=== PATIENT | female | born 1965 | race Caucasian/White ===

== ENCOUNTER → 2019-05-23 | Outpatient (CLI) | payer BC, MEDICAID, SELFPAY ==
--- NOTE | 2019-05-23 09:43 | STRESSREP_ITS ---
Stress Test Report Date: Procedure: Pharmacologic stress nuclear imaging study Indications: 05-23-19 Consent: Per the patient Procedure: The patient underwent pharmacologic (Regadenoson) evaluation with a peak heart rate of 105 beats per minute (63 %predicted maximal heart rate) and a peak blood pressure of 164/92 mmHg. The baseline ECG demonstrated normal sinus rhythm. The peak pharmacologic ECG demonstrated no obvious ECG changes. There were no cardiac dysrhythmias pretest, during pharmacologic infusion, or recovery. There was no complaint of chest discomfort during pharmacologic infusion or recovery. The examination was discontinued secondary to completion of protocol. Impression: 1. Pharmacologic (Regadenoson) evaluation 2. Peak pharmacologic ECG with no obvious ECG changes. 3. There were no cardiac dysrhythmias pretest, during pharmacologic infusion, or recovery. 4. Nuclear images pending Myocardial perfusion imaging study: Technique: The patient was injected with 11.8 millicuries of technetium 99m Cardiolite and subsequently rest SPECT Cardiolite nuclear imaging was obtained in the horizontal long, vertical long, and short axis views. The patient underwent pharmacologic (Regadenoson) evaluation with a peak heart rate of 105 beats per minute (63 % percent predicted maximal heart rate) and a peak blood pressure of 164/92 mmHg. The patient was injected with 33 millicuries of technetium 99m Cardiolite and subsequently stress SPECT Cardiolite nuclear imaging was obtained in the horizontal long, vertical long, and short axis views. A gated Cardiolite study at peak stress was obtained. Interpretation: Rest and stress SPECT Cardiolite nuclear imaging status post realignment, normalization, and attenuation correction demonstrate areas of extra cardiac/gastrointestinal tracer uptake near the inferior segments which appears to be more prominent at rest as opposed to stress. At rest there appears to be relative uniform tracer uptake. Status post stress there appears to be an area of diminished tracer uptake in portions of the mid inferior/inferolateral segments. There is end systolic thickening and brightening. The gated Cardiolite study demonstrates myocardial thickening and inward wall motion. The reported LVEF is 75 %. Impression: 1. Stress SPECT currently nuclear imaging demonstrate myocardial perfusion changes concerning for an area of stress-induced myocardial ischemia in the mid inferior lateral segments. 2. The gated Cardiolite study reports an LVEF of 75 %. This note was generated with Variable software. It may contain incorrect words, spelling, and punctuation that were not noted in checking the note before signing.
== END | disposition home or self-care (01) ==
LOC: CVS 07:05
PROVIDERS: Family Provider Internal Medicine; PCP Internal Medicine; Referring Provider Internal Medicine; Visit Provider Internal Medicine
DX: Z13.6 Encounter for screening for cardiovascular disorders (principal)
CPT/HCPCS: 78452; 93017; A9500; A4216; J2785

== ENCOUNTER 2019-08-19 14:58 | Emergency (ER) | payer OTHER, BC, SELFPAY ==
[2019-08-19 15:02] VITALS: BP 166/108; PULSE 80; RESP 16; TEMP 36.2; O2SAT 95; BMI 28.5
--- NOTE | 2019-08-19 15:33 | ED.DCSUM_ITS ---
- ER Visit Summary Date of Service: 08/19/19 Chief Complaint: [Injury to right wrist] History of Present Illness: The patient is a 54 F [resents to the emergency department with injury to her right wrist while at work earlier today. 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 Patient subsequently noticed progressive swelling and discoloration to the wrist so she was instructed to be evaluated for the injury to her wrist. Patient initially went to urgent care and she was referred to the emergency department. 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 Told me she has history of coronary artery disease and had a heart attack in 2016 as well as a heart catheterization but no intervention. No recent travel or surgery. Patient is right-hand dominant. She states that she is really here just for the wrist injury. Patient also states that she has had prior wrist fracture to the right wrist back in 1992.] Physical Examination: [HEENT-PERRLA, EOMI. Cranial nerves II through XII grossly intact. TMs clear. Mucous membranes moist. No adenopathy. Cardiovascular-regular rate and rhythm without murmur or ectopy Lungs-clear to auscultation, chest wall stable without crepitus or subcu emphysema Abdomen-normoactive bowel sounds, soft, nontender, no rebound or rigidity, no peritoneal signs. Extremities-intact ?4, normal range of motion, normal pulses. Right wrist- patient does have some soft tissue swelling over the dorsum of the wrist with some ecchymosis and discoloration over the dorsum of the wrist and dorsum of the hand. Patient has pain with range of motion flexion extension. She is neurovascular intact distally.] Test Results: [X-rays of the right wrist showed a old fracture of the distal radius and ulnar styloid but no new fractures. EKG obtained by nursing staff on patient's arrival shows sinus rhythm with a ventricular rate of 67 bpm with no acute ST segment changes. Emergency Department Course and Treatment: [She was given a wrist splint and work restrictions] Treatment Plan: [Splint and wrist restrictions. Patient to follow-up with corporate care in 3 to 5 days for wound check.] Disposition: [Discharged home in stable condition.] Impression: [Contusion right wrist] This note was generated with [employer] dictation software. It may contain incorrect words, spelling, and punctuation that were not noted in review of the chart prior to signing ED Disposition - Plan for ED Patient: Referrals: Kassidy Connors MD [Primary Care Provider] -
--- NOTE | 2019-08-19 15:39 | RAD_ITS ---
STUDY: X-RAY - RIGHT WRIST REASON FOR EXAM: Female, 54 years old. Pain and deformity following injury. TECHNIQUE: 3 view(s) of the wrist were obtained. COMPARISON: Comparison is made with prior examination dated August 20, 2012. FINDINGS: There is evidence of a healed fracture of the distal radial metaphysis with deformity. Also evidence of an old avulsion fracture of the ulnar styloid. Normal radiocarpal articulation. Dorsal subluxation of the distal Normal carpal bones. Normal carpal articulations. Normal carpometacarpal articulation of the thumb. Normal second through fifth carpometacarpal articulations. Normal visualized metacarpal bones. Diffuse soft tissue swelling. RAD/Wrist min 3 Views IMPRESSION: Healed fracture of the distal radial metaphysis and avulsion fracture of the ulnar styloid. Dorsal subluxation of the distal ulna. Electronically Signed: Tim Arora, at 15:59 EDT , Service support ,
[2019-08-19 16:04] VITALS: RESP 16
--- NOTE | 2019-08-19 16:10 | DCINST.ED_ITS ---
ED Disposition - Plan for ED Patient: Instructions: CONTUSION, Hand, CONTUSION, Upper Extremity Prescriptions: Hydrocodone Bitart/Apap 5-325 [[place] 5MG-325MG] 1 tab PO Q4H PRN PRN 2 Days #7 tab PRN Reason: Pain Prescription Printed Referrals: Kassidy Connors MD [Primary Care Provider[facility] [GROUP OF PHYSICIANS] - 3-5 Days
--- NOTE | 2019-08-19 16:10 | ED.DEP ---
ED Disposition - Plan for ED Patient: Instructions: CONTUSION, Hand, CONTUSION, Upper Extremity Prescriptions: Hydrocodone Bitart/Apap 5-325 [[place] 5MG-325MG] 1 tab PO Q4H PRN PRN 2 Days #7 tab PRN Reason: Pain Prescription Printed Referrals: Kassidy Connors MD [Primary Care Provider[facility] [GROUP OF PHYSICIANS] - 3-5 Days
== END 2019-08-19 17:18 | disposition home or self-care (01) ==
LOC: ED 15:42
PROVIDERS: Emergency Provider Emergency Medicine; Family Provider Internal Medicine; PCP Internal Medicine
DX: S60.211A Contusion of right wrist, 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 (principal); S60.221A Contusion of right hand, 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; R07.89 Other chest pain; W22.01XA Walked into wall, initial encounter; Y93.9 Activity, unspecified; Y92.9 Unspecified place or not applicable; I25.10 Atherosclerotic heart disease of native coronary artery without angina pectoris; I25.2 Old myocardial infarction; I10 Essential (primary) hypertension; Z79.82 Long term (current) use of aspirin; Z79.899 Other long term (current) drug therapy
CPT/HCPCS: 73110; 93005; 99283

== ENCOUNTER → 2019-08-20 12:06 | Outpatient (CLI) | payer BC, SELFPAY ==
[2019-08-20 08:25] VITALS: BMI 28.5
--- NOTE | 2019-08-20 12:11 | RAD_ITS ---
STUDY: X-RAY CHEST REASON FOR EXAM: Female, 54 years old. Shortness of breath TECHNIQUE: Frontal view of the chest COMPARISON: X-ray chest November 16, 2017 FINDINGS: The lungs are clear. There are no pleural effusions. There is no pneumothorax. The heart is normal in size. The visualized osseous structures are within normal limits. RAD/Chest PA and Lateral IMPRESSION: No acute thoracic pathology. Electronically Signed: Francis West, at 17:05 EDT Tel , Service support ,
[2019-08-20 14:08] LABS: Absolute Lymphocyte Count 1.85 X10^3/uL (0.83-4.51); Absolute Neutrophil Count 3.2 X10^3/uL (2.0-7.7); Basophil# 0.04 X10^3/uL; Basophil% 0.7 % (0-1); Eosinophil# 0.14 X10^3/uL; Eosinophils% 2.5 % (0-5); Hematocrit 43.3 % (37-47); Hemoglobin 13.6 g/dL (12.0-15.0); Lymphocyte # 1.85 X10^3/ul (4.0); Lymphocyte % 32.6 % (19-41); Mean Corp Hgb Conc 31.4 g/dL (32-36); Mean Corpuscular Volume 92.3 fL (81-99); Mean Platelet Vol. 10.4 fl (6.2-12.0); Monocyte# 0.47 X10^3/uL; Monocyte% 8.3 % (0-10); NRBC Flagged by Analyzer 0 % (0-5); Neutrophil # 3.16 X10^3/uL (2.7-7.7); Neutrophil % 55.5 % (47-70); Platelet Count 298 K/mm3 (150-450); RBC Distribution Width CV 13.2 % (11.6-14.6); RBC Distribution Width SD 44.9 fl (35.1-43.9); Red Blood Count 4.69 M/mm3 (4.2-5.4); White Blood Count 5.7 K/mm3 (4.4-11.0)
[2019-08-20 14:46] LABS: Anion Gap 4 (5-15); BUN 11 mg/dL (7-18); Calcium,Total 8.8 mg/dL (8.5-10.1); Chloride 106 mmol/L (98-107); Creatinine, Serum 0.74 mg/dL (0.55-1.02); EST Glomerular Filtration Rate 87 mL/min (>60); Est Glom Filt Rate - Afr Amer 106 mL/min (>60); Glucose 89 mg/dL (74-106); Potassium 3.8 mmol/L (3.5-5.1); Sodium Level 140 mmol/L (136-145)
== END ==
LOC: RAD 12:09
PROVIDERS: Family Provider Internal Medicine; PCP Internal Medicine; Referring Provider Internal Medicine Cardiovascular Disease; Visit Provider Internal Medicine Cardiovascular Disease
DX: I25.119 Atherosclerotic heart disease of native coronary artery with unspecified angina pectoris (principal)
CPT/HCPCS: 36415; 71046; 80048; 85025

== ENCOUNTER 2019-08-22 07:07 | Day surgery (SDC) | payer BC, SELFPAY ==
[2019-08-20 08:25] VITALS: BMI 28.5
[2019-08-21 08:46] VITALS: BMI 28.5
--- NOTE | 2019-08-22 08:37 | CL.D_ITS ---
Patient Name: JOLIE JEROME Study Date: 08/22/2019 Performing: Zane Meyers MD Ht: 64.17 inches 163 cm : 1965 Wt: 165.35 lbs 75 kg Age: 54 Gender: female BSA: 1.81 PROCEDURE(S) PERFORMED [id number]/COR/LV CLINICAL PROFILE AND INDICATIONS Indications: Suspected CAD Heart Failure: None Stress/Imaging Date: 04/17/2019Stress Test with SPECT MPI: Positive Low Risk CAD Presentations: Symptom unlikely to be ischemic. CONCLUSIONS Normal coronary arteries RECOMMENDATIONS Medical therapy DESCRIPTION OF PROCEDURE The patient arrived to the procedure lab. The risks and benefits of the procedure as well as a full d escription of our services here and current unavailability of surgical backup were fully explained to the patient and/or their significant other prior to the catheterization. The Timeout was completed, verifying the correct patient and procedure. The patient's procedural site was prepped and draped in the usual fashion. Local anesthetic was given subcutaneously to right radial region with Lidocaine 2% . Using a modified Seldinger technique, arterial access was obtained via the right radial artery, a 6 Fr sheath was inserted. Right Coronary Artery selective angiography was then performed in multiple v iews using a 5 Fr. 4.0 [place] catheter. Left Coronary Artery selective angiography was performed in mu ltiple views using a 5 Fr. 4.0 [place] catheter. Left Ventriculography was performed in [place] projection using a 5 Fr. [place] catheter. LV to AO pullback pressures were then recorded.The arterial sheath was pulled and a TR Band was applied for hemostasis w/ 10ml air CORONARY ANGIOGRAPHY DOMINANCE: Right Dominant LEFT HEART ASSESSMENT Left Ventricular Ejection Fraction: by LV Gram 60 % Inferior Mid Akinesis Normal Left Ventricular systolic function Normal Left Ventricular systolic function LEFT MAIN: Angiographically normal LEFT ANTERIOR DESCENDING ARTERY: Angiographically normal CIRCUMFLEX ARTERY: Angiographically normal RIGHT CORONARY ARTERY: Angiographically normal COMPLICATIONS No Complications PROCEDURE MEDICATIONS Versed 1 mg IV Fentanyl 50 mcg IV Versed 1 mg IV Oxygen: 2 L/min via nasal cannula SUMMARY OF HEMODYNAMIC DATA Time AIR REST ECG 07:55:25 AO 133/79 (102) SA 08:15:52 LV 142/3, 8 08:22:16 LV 134/1, 10 08:22:22 LV 129/-2, 19 08:23:11 LVp 122/-6, 7 08:23:16 AO 146/76 (105) 08:23:21 Signed By Zane Meyers MD On 08/22/2019 08:36:32 Zane Meyers MD
== END 2019-08-22 10:30 | disposition home or self-care (01) ==
LOC: CLSP 07:07
PROVIDERS: Family Provider Internal Medicine; PCP Internal Medicine; Referring Provider Internal Medicine Cardiovascular Disease; Visit Provider Internal Medicine Cardiovascular Disease
DX: I25.119 Atherosclerotic heart disease of native coronary artery with unspecified angina pectoris (principal); I11.0 Hypertensive heart disease with heart failure; I50.32 Chronic diastolic (congestive) heart failure; I25.2 Old myocardial infarction; I27.21 Secondary pulmonary arterial hypertension; J45.909 Unspecified asthma, uncomplicated; Z86.2 Personal history of diseases of the blood and blood-forming organs and certain disorders involving the immune mechanism; Z87.892 Personal history of anaphylaxis; Z79.82 Long term (current) use of aspirin; Z79.02 Long term (current) use of antithrombotics/antiplatelets; Z79.899 Other long term (current) drug therapy
CPT/HCPCS: 93458; 99152; 99153; J7040; C1769; C1894; Q9967

== ENCOUNTER → 2020-03-20 09:38 | Outpatient (CLI) | payer BC, SELFPAY ==
[2020-03-16 11:17] VITALS: BMI 28.5
[2020-03-20 10:22] LABS: AST(SGOT) 17 U/L (15-37); Alanine Aminotransfer ALT/SGPT 25 U/L (13-56); Albumin, Serum 3.5 g/dL (3.2-5.0); Alkaline Phosphatase 78 U/L (45-117); Anion Gap 5 (5-15); BUN 14 mg/dL (7-18); BUN/Creat Ratio 19.4 RATIO (10-20); Bilirubin, Direct 0.14 mg/dL (0.00-0.30); Calcium,Total 8.6 mg/dL (8.5-10.1); Chloride 109 mmol/L (98-107); Cholesterol 216 mg/dL (200); Creatinine, Serum 0.72 mg/dL (0.55-1.02); EST Glomerular Filtration Rate 89 mL/min (>60); Est Glom Filt Rate - Afr Amer 108 mL/min (>60); Globulin 3.4 g/dL (2.2-4.2); Glucose 93 mg/dL (74-106); High Density Lipoprotein 59 mg/dL; Potassium 4.1 mmol/L (3.5-5.1); Protein, Total 6.9 g/dL (6.4-8.2); Sodium Level 142 mmol/L (136-145); Triglycerides 254 mg/dL; Very Low Density Lipoprotein 51 mg/dL (5-40)
== END ==
PROVIDERS: PCP Internal Medicine; Referring Provider Physician Assistant Medical; Visit Provider Physician Assistant Medical
DX: I10 Essential (primary) hypertension (principal); I25.10 Atherosclerotic heart disease of native coronary artery without angina pectoris
CPT/HCPCS: 36415; 80048; 80061; 80076

== ENCOUNTER → 2020-08-07 | Outpatient (CLI) | payer BC, SELFPAY ==
[2020-03-16 11:17] VITALS: BMI 28.5
== END | disposition home or self-care (01) ==
LOC: LABSPEC 14:23
PROVIDERS: PCP Internal Medicine; Visit Provider Family Medicine
DX: Z11.59 Encounter for screening for other viral diseases (principal)
CPT/HCPCS: 87635; U0003

== ENCOUNTER → 2021-01-08 11:58 | Outpatient (CLI) | payer BC, SELFPAY ==
[2020-03-16 11:17] VITALS: BMI 28.5
[2021-01-08 12:43] LABS: Cholesterol 242 mg/dL (200); Glucose 102 mg/dL (74-106); High Density Lipoprotein 88 mg/dL; Triglycerides 56 mg/dL; Very Low Density Lipoprotein 11 mg/dL (5-40)
== END ==
PROVIDERS: Referring Provider Family Medicine; Visit Provider Family Medicine
DX: Z00.00 Encounter for general adult medical examination without abnormal findings (principal)
CPT/HCPCS: 36415; 80061; 82947

== ENCOUNTER 2022-02-18 12:30 | Emergency (ER) | payer BC, SELFPAY ==
[2022-02-18 12:32] VITALS: BP 193/93; PULSE 105; RESP 14; TEMP 36.8; O2SAT 96; BMI 29.0
--- NOTE | 2022-02-18 12:48 | EKG12_ITS ---
Test Reason : Blood Pressure : / mmHG Vent. Rate : 100 BPM Atrial Rate : 100 BPM P-R Int : 164 ms QRS Dur : 082 ms QT Int : 352 ms P-R-T Axes : 072 042 065 degrees QTc Int : 454 ms Normal sinus rhythm Normal ECG Confirmed by NIGHAT DE LA O, ZAKIA ([id number]), health editor TINY DEVINE ([id number]) on 02/21/2022 10:56:41 AM Referred By: SELIN Confirmed By:ZAKIA DISLA MD
--- NOTE | 2022-02-18 12:49 | CT_ITS ---
STUDY: CT ABDOMEN AND PELVIS WITHOUT CONTRAST REASON FOR EXAM: Female, 56 years old. Pain RADIATION DOSAGE (If Supplied By Facility): CTDIvol = ( 8.26 ) mGy, DLP = ( 390.23 ) mGycm TECHNIQUE: Transaxial images were obtained from the dome of the diaphragm to the symphysis pubis without oral contrast, and without intravenous contrast. Sagittal and coronal images were reconstructed. Individualized dose optimization techniques were used for this CT. COMPARISON: None. FINDINGS: The visualized lung bases are unremarkable. The visualized portions of the heart are within normal limits. Normal liver. Normal gallbladder and extrahepatic biliary system. Normal spleen. Normal pancreas. Normal bilateral adrenal glands. Normal right kidney. Normal left kidney. Normal visualized stomach. Normal small intestine. Normal colon. The appendix is visualized and appears normal. Normal abdominal aorta. Normal inferior vena cava. Normal retroperitoneum. Normal urinary bladder. Normal abdominal wall. Normal osseous structures. CT/Abdomen/Pelvis without Cont IMPRESSION: Normal unenhanced CT of the abdomen and pelvis. Electronically Signed: José Manuel Woodson MD at 14:16 EDT ,
--- NOTE | 2022-02-18 12:55 | EX.ED.DYSGE1 ---
HPI History of Present Illness Chief Complaint: Abd Pain Detail of Chief Complaint: Chest pain and abdominal pain x9 days Informant: patient Narrative Narrative: Patient presents to the emergency department stating that she is not been feeling well for the last 9 days. Patient states that on the 18th of the month she came down with what she thought was food poisoning with diarrhea as well as some nausea and vomiting. Patient since then has been having indigestion and pain in the abdomen as well as in the chest. Her diarrhea is improved. She complains of pain with eating. She has a hard time localizing the pain but thinks may be more upper abdomen. She denies urinary symptoms. She tells me she think she is had a fever intermittently up to 100.8. Patient is concerned that she may be having a heart attack or an aneurysm in her abdomen. Patient tells me she had a heart attack in 2016 and heart had a heart catheterization but no stent or any type of intervention was undertaken. Prior similar symptoms: No PFSH PFS Medical History (Updated 02/18/22 @ 15:[address] 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) Secondary pulmonary arterial hypertension Home Medications albuterol sulfate 1 puff INHALATION Q4H PRN PRN 04/25/17 [History Last Taken Unknown] epinephrine 0.3 mg IM X1 PRN 04/25/17 [History Last Taken Unknown] aspirin 325 mg tablet 325 mg PO DAILY 08/20/19 [History Last Taken 08/22/19] clopidogrel 75 mg tablet 75 mg PO DAILY #90 tab 09/05/21 [Rx Last Taken Unknown] lisinopril 20 mg tablet 20 mg PO DAILY #90 tab 09/05/21 [Rx Last Taken Unknown] metoprolol succinate 100 mg tablet,extended release 24 hr 100 mg PO DAILY #90 tab 09/05/21 [Rx Last Taken Unknown] lansoprazole [Prevacid] 30 mg PO DAILY #14 cap 02/18/22 [Rx Last Taken Unknown] ondansetron 4 mg PO Q8H PRN PRN #10 tab 02/18/22 [Rx Last Taken Unknown] Allergy/AdvReac Type Severity Reaction Status Date / Time ketorolac tromethamine Allergy Shortness Verified 02/18/22 12:32 [From Toradol] of breath Family History Father Heart disease AVR BAV Brother Hypertension Sister Hypertension Mother Diabetes Hypertension Other Cancer Myocardial infarction Surgical History History of hysterectomy History of left heart catheterization (08/22/19) Social History (Updated 03/16/20 @ 11:17 by Zuleyma DEXTER, PA) Smoking Status: Never smoker alcohol intake: current alcohol intake frequency: holidays/special occasions only ROS ROS ED Constitutional Constitutional ED: Reports systems reviewed and no addt'l complaints, except as documented; Denies body ache(s), change in weight or chills Eyes Eyes: Denies acute decrease in peripheral vision, change in vision, double vision or loss of vision ENT ENT ED: Reports none; Denies ear pain, lip swelling, loss taste/smell, neck pain, otalgia or sore throat Cardiovascular Cardiovascular: Reports none and chest pain; Denies abdominal pain, chest pain with activity, leg edema, lightheadedness, palpitations, rapid heart rate or syncope Respiratory/Chest Respiratory/Chest: Reports none; Denies change in mental status, dry cough, dyspnea, hemoptysis, shortness of breath at rest or shortness of breath with exertion Gastrointestinal Gastrointestinal: Reports none, abdominal pain, diarrhea, nausea and vomiting; Denies change in stool character, hematemesis, hematochezia, melena or rectal bleeding Genitourinary Genitourinary ED: Reports none; Denies abdominal discomfort, anuria, dysuria, genital pain or polyuria Musculoskeletal Musculoskeletal: Reports none; Denies arthralgias, back pain, difficulty walking, extremity pain, muscle weakness or myalgias Integumentary Reports none; Denies abscess or rash Neurologic Neurologic: Reports none; Denies abnormal gait, confusion, focal weakness, frequent falls, headache(s), loss of vision, numbness, paresthesias, radicular pain, vertigo or weakness Psychiatric Psychiatric: Reports systems reviewed and no addt'l complaints, except as documented and none; Denies behavioral changes, confusion, difficulty concentrating, hallucinations, suicidal ideation, tactile hallucinations or visual hallucinations Endocrine Endocrinology: Denies none, cold intolerance, excessive sweating, fatigue or heat intolerance Hematologic/Lymphatic Hematologic/Lymphatic: Reports none; Denies anemia, easy bleeding or easy bruising Allergic/Immunologic Allergic/Immunologic ED: Denies as per HPI, none, lip swelling, mouth swelling, throat swelling, tongue swelling or hives EXAM Physical Exam Const Vital Signs: 02/18/22 12:32 02/18/22 12:44 Temperature 98.3 F Temperature Source Temporal Pulse Rate 105 H Respiratory Rate 14 Respiratory Effort Normal Blood Pressure 193/93 H Blood Pressure Mean 126 Pulse Ox 96 Oxygen Delivery Method Room Air Positive well nourished and well developed General Appearance ED: well developed and NAD HEENT Reports TM's clear and moist mucous membranes normocephalic and atraumatic; Negative for trauma or tenderness Tympanic Membrane ED: Yes TM's clear Eyes PERRL and EOMs intact bilaterally General Eye ED: Negative for pale conjunctiva or scleral icterus Neck no lymphadenopathy, supple and no JVD General: Negative for tenderness Chest Wall inspection of chest normal and palpation of chest normal Chest: Negative for tenderness Resp normal respiratory effort and clear to auscultation bilaterally Effort and Inspection: Negative for respiratory distress or pain with movement Auscultation: Negative for rhonchi, wheezes or diminished lung sounds Cardio regular rate, regular rhythm, S1 normal heart sound, S2 normal heart sound and no murmurs Peripheral Pulses: pulses 2+ throughout GI normal to inspection, nondistended, normoactive bowel sounds, soft to palpation, non-distended and no masses GI Narrative: Patient with mild diffuse tenderness on exam but seems to localize more to the epigastric and right upper quadrant region. There are some mild guarding. There is no rebound, rigidity, or peritoneal signs. Exam was performed and she had brown stool and Hemoccult was sent. No masses in the rectal vault. Back/Spine no CVA tenderness and no thoracic nor lumbar tenderness Extremity normal to inspection General Extremety ED: Negative for edema General Extremity: Negative for edema Neuro oriented x3, CN's II-XII intact bilaterally, no sensory deficits noted and gait normal Sensorium / Orientation: awake, alert, oriented to person, oriented to place and oriented to time Motor Exam: strength 5/5 throughout and strength abnormal Psych mental status grossly normal Skin no rashes or lesions noted and no wounds MDM MDM MDM Narrative Medical decision making narrative: IV line established on arrival. Patient was given Zofran. Lab work-up was significant for anemia with a hemoglobin of 8.3. Her last hemoglobin was from 2019 and was normal at that time at 13. Etiology of her anemia is unclear and her stool only turned dark after she took Pepto-Bismol few days ago. CT scan of the abdomen pelvis was unremarkable. Kidney function as well as LFTs and lipase were normal. I suspect patient may have had a viral gastroenteritis. I will refer her to GI for follow-up as she will need repeat blood work as far as H&H and possible upper and lower scopes if her symptoms persist. Patient will be started on Prevacid and Zofran. Lab Data Attestation: I reviewed the patient's lab results. Labs: Laboratory Results - last 24 hr 02/18/22 02/18/22 02/18/22 13:20 13:20 13:20 WBC 10.5 RBC 2.85 L Hgb 8.3 L Hct 25.4 L MCV 89.1 MCH 29.1 MCHC 32.7 RDW Std Deviation 44.1 H RDW Coeff of Jo 14.2 Plt Count 306 MPV 10.5 Immature Gran % (Auto) 1.200 H Neut % (Auto) 71.3 H Lymph % (Auto) 17.2 L [place] % (Auto) 8.5 Eos % (Auto) 1.4 Baso % (Auto) 0.4 Absolute Neuts (auto) 7.4 Absolute Lymphs (auto) 1.80 Nucleated RBC % 0.4 Sodium 138 Potassium 3.5 Chloride 104 Carbon Dioxide 29.0 Anion Gap 5 BUN 13 Creatinine 0.69 Estim Creat Clear Calc 77.68 Est GFR (MDRD) Af Amer 112 Est GFR (MDRD) Non-Af 93 BUN/Creatinine Ratio 18.8 Glucose 115 H Lactic Acid 0.7 Calcium 8.1 L Total Bilirubin 0.60 AST 13 L ALT 23 Alkaline Phosphatase 70 Troponin I High Sens 6 Total Protein 6.9 Albumin 3.3 Globulin 3.6 Albumin/Globulin Ratio 0.9 Lipase 191 Urine Color Urine Clarity Urine pH Ur Specific [place] Urine Protein Urine Glucose (UA) Urine Ketones Urine Occult Blood Urine Nitrite Urine Bilirubin Urine Urobilinogen Ur Leukocyte Esterase Urine RBC Urine WBC Ur Squamous Epith Cells Urine Bacteria Urine Mucus 02/18/22 13:49 WBC RBC Hgb Hct MCV MCH MCHC RDW Std Deviation RDW Coeff of Jo Plt Count MPV Immature Gran % (Auto) Neut % (Auto) Lymph % (Auto) [place] % (Auto) Eos % (Auto) Baso % (Auto) Absolute Neuts (auto) Absolute Lymphs (auto) Nucleated RBC % Sodium Potassium Chloride Carbon Dioxide Anion Gap BUN Creatinine Estim Creat Clear Calc Est GFR (MDRD) Af Amer Est GFR (MDRD) Non-Af BUN/Creatinine Ratio Glucose Lactic Acid Calcium Total Bilirubin AST ALT Alkaline Phosphatase Troponin I High Sens Total Protein Albumin Globulin Albumin/Globulin Ratio Lipase Urine Color Yellow Urine Clarity Clear Urine pH 7.0 Ur Specific [place] 1.010 Urine Protein Negative Urine Glucose (UA) Normal Urine Ketones Negative Urine Occult Blood Negative Urine Nitrite Negative Urine Bilirubin Negative Urine Urobilinogen Normal Ur Leukocyte Esterase 100 H Urine RBC 0 SEEN Urine WBC 0 SEEN Ur Squamous Epith Cells 0 SEEN Urine Bacteria 0 SEEN Urine Mucus 0 SEEN Radiography Diagnostic Testing: Clinical Impression(s) from Imaging Studies Abdomen/Pelvis CT 02/18/22 12:49 IMPRESSION: Normal unenhanced CT of the abdomen and pelvis. Electronically Signed: José Manuel Woodson MD at 14:16 EDT , EKG Initial EKG: Attestation: I personally reviewed and interpreted this EKG as follows: Comments: Sinus rhythm with a ventricular rate of 100 bpm with no acute ST segment changes Discharge Plan Triage Chief Complaint: Abd Pain ED Provider: Haris Collazo Dx/Rx/DC Orders Clinical Impression: Abdominal pain, Viral gastroenteritis, Anemia Instructions: Anemia, ED Abdominal Pain Unkn Cause Fem, ED Gastroenteritis, Viral (Adult) Prescriptions: New ondansetron [ondansetron] 4 MG tablet 4 mg PO Q8H PRN PRN (Reason: Nausea) Qty: 10 RF: 0 lansoprazole [Prevacid] 30 mg capsule,delayed release(DR/EC) 30 mg PO DAILY Qty: 14 RF: 0 No Action aspirin 325 mg tablet 325 mg PO DAILY RF: 0 albuterol sulfate 1 INHALER inhaler 1 puff inhalation Q4H PRN PRN (Reason: Wheezing) RF: 0 epinephrine 0.3 MG syringe 0.3 mg IM X1 PRN (Reason: Anaphylaxis) RF: 0 clopidogrel 75 mg tablet 75 mg PO DAILY Qty: 90 RF: 3 lisinopril 20 mg tablet 20 mg PO DAILY Qty: 90 RF: 3 metoprolol succinate 100 mg tablet extended release 24 hr 100 mg PO DAILY Qty: 90 RF: 3 Primary Care Provider: Care Physician,No Primary Referrals: Radames Foss MD [STAFF PHYSICIAN] - 3-5 Days FriendRalf DO [STAFF PHYSICIAN] - 3-5 Days Care Physician,No Primary [Primary Care Provider] - Disposition Disposition: Home, Self Care
[2022-02-18] MEDS: 0.9% Normal Saline 1,000 ML 125 ML IV (12:56)
[2022-02-18] MEDS: Ondansetron 4 MG/2 ML Vial IV (12:56)
[2022-02-18 13:36] LABS: Absolute Neutrophil Count 7.4 X10^3/uL (2.0-7.7); Basophil# 0.04 X10^3/uL; Basophil% 0.4 % (0-1); Eosinophil# 0.15 X10^3/uL; Eosinophils% 1.4 % (0-5); Hematocrit 25.4 % (37-47); Hemoglobin 8.3 g/dL (12.0-15.0); Lymphocyte % 17.2 % (19-41); Mean Corp Hgb Conc 32.7 g/dL (32-36); Mean Corpuscular Hgb 29.1 pg (27.0-32.0); Mean Corpuscular Volume 89.1 fL (81-99); Mean Platelet Vol. 10.5 fl (6.2-12.0); Monocyte# 0.89 X10^3/uL; Monocyte% 8.5 % (0-10); NRBC Flagged by Analyzer 0.4 % (0-5); Neutrophil # 7.44 X10^3/uL (2.7-7.7); Neutrophil % 71.3 % (47-70); Platelet Count 306 K/mm3 (150-450); RBC Distribution Width CV 14.2 % (11.6-14.6); RBC Distribution Width SD 44.1 fl (35.1-43.9); Red Blood Count 2.85 M/mm3 (4.2-5.4); White Blood Count 10.5 K/mm3 (4.4-11.0)
[2022-02-18 13:53] LABS: Bacteria 0 SEEN /hpf (None Seen); Mucous, Urine 0 SEEN /hpf (<or=2+); Red Blood Cells-Urine 0 SEEN /hpf (0-5); Squamous Epithelial Cells - UA 0 SEEN /hpf (5-10); White Blood Cells 0 SEEN /hpf (0-5)
[2022-02-18 13:55] LABS: ALB/GLOB Ratio 0.9 RATIO (0.9-2.4); AST(SGOT) 13 U/L (15-37); Alanine Aminotransfer ALT/SGPT 23 U/L (13-56); Albumin, Serum 3.3 g/dL (3.2-5.0); Alkaline Phosphatase 70 U/L (45-117); Anion Gap 5 (5-15); BUN 13 mg/dL (7-18); BUN/Creat Ratio 18.8 RATIO (10-20); Calcium,Total 8.1 mg/dL (8.5-10.1); Chloride 104 mmol/L (98-107); Creatinine, Serum 0.69 mg/dL (0.55-1.02); EST Glomerular Filtration Rate 93 mL/min (>60); Est Glom Filt Rate - Afr Amer 112 mL/min (>60); Estimated Creatinine Clearance 77.68 ml/min; Globulin 3.6 g/dL (2.2-4.2); Glucose 115 mg/dL (74-106); Lipase 191 U/L (73-393); Potassium 3.5 mmol/L (3.5-5.1); Protein, Total 6.9 g/dL (6.4-8.2); Sodium Level 138 mmol/L (136-145); Troponin-I HS 6 pg/mL (3.0-54.0)
[2022-02-18 13:59] LABS: Color, Urine Yellow (Yellow); Glucose, Dipstick Normal (Normal); Ketone-Dipstick Negative (Negative); Leukocyte Esterase-Dipstick 100 /ul (Negative); Nitrite-Dipstick Negative (Negative); Occult Blood-Urine Negative /ul (Negative); Protein-Dipstick Negative (Negative); Urine Bilirubin Dipstick Negative (Negative); Urine Clarity Clear (Clear); Urine Urobilinogen Normal (Normal)
[2022-02-18 14:00] LABS: Lactic Acid 0.7 mmol/L (0.4-1.9)
[2022-02-18 15:18] VITALS: BP 147/88; BP 151/91; BP 155/88; PULSE 76; PULSE 78
[2022-02-18 15:27] VITALS: BP 148/78; PULSE 78; RESP 16; TEMP 36.9; O2SAT 98
== END 2022-02-18 15:53 | disposition home or self-care (01) ==
PROVIDERS: Emergency Provider Emergency Medicine; Visit Provider Emergency Medicine
DX: A08.4 Viral intestinal infection, unspecified (principal); I11.0 Hypertensive heart disease with heart failure; I50.32 Chronic diastolic (congestive) heart failure; I27.21 Secondary pulmonary arterial hypertension; I25.10 Atherosclerotic heart disease of native coronary artery without angina pectoris; D64.9 Anemia, unspecified; J45.909 Unspecified asthma, uncomplicated; I25.2 Old myocardial infarction; Z79.82 Long term (current) use of aspirin; Z79.899 Other long term (current) drug therapy; Z79.02 Long term (current) use of antithrombotics/antiplatelets
CPT/HCPCS: 74176; 80053; 81001; 82274; 83605; 83690; 84484; 85025; 93005; 96361; 96374; 99284; J7030; J2405

== ENCOUNTER 2022-03-03 13:14 | Emergency (ER) | payer BC, SELFPAY ==
[2022-03-03 13:15] VITALS: BP 208/106; PULSE 116; RESP 15; TEMP 37.4; O2SAT 98; BMI 27.4
[2022-03-03] MEDS: Ondansetron ODT 4 MG Tablet 8 MG PO (13:54)
--- NOTE | 2022-03-03 14:06 | CT_ITS ---
STUDY: CT BRAIN WITHOUT CONTRAST REASON FOR EXAM: Female, 56 years old. Scalp pain -- posterior scalp lesion, headache RADIATION DOSAGE (If Supplied By Facility): CTDIvol = ( 47.06 ) mGy, DLP = ( 943.26 ) mGycm TECHNIQUE: Transaxial CT imaging of the brain was performed without administration of intravenous contrast material. Individualized dose optimization techniques were used for this CT. COMPARISON: Comparison is made with prior study of 04/25/2017. FINDINGS: Soft tissue changes in the scalp overlying the posterior right parietal bone. No mass lesion is seen. Normal calvarium. Normal size ventricles and extra-axial spaces for the patient''s age. Normal white matter tracts of the cerebral hemispheres. Normal basal ganglia and thalami. Normal brainstem. Normal cerebellum. There is no intracranial hemorrhage. There are no findings of an acute ischemic infarction. Normal visualized paranasal sinuses. CT/Brain/Head without Contrast IMPRESSION: Soft tissue density in the scalp overlying the posterior right parietal bone. Electronically Signed: Tim Arora MD at 14:38 EDT ,
--- NOTE | 2022-03-03 14:32 | EDS_ITS ---
HPI History of Present Illness Chief Complaint: General Illness Informant: patient Narrative Narrative: Presents for evaluation of scalp bump posterior noted for the past 4 days that is new. States was not there previously. She followed up with PCP yesterday, Dr. Samuels, reports had a attempted needle drainage, there was no drainage, placed on Augmentin. Denies fever. States of pain in her head shooting up and inside. She states it feels like shingles pain in the past. States there is bumps on her neck. She denies any trouble swallowing or sore throat. Denies any previous similar symptoms in the past. History of SD with catheterization and no stenting in the past she is on aspirin and Plavix. Reports was here 2 weeks ago for abdominal pain with a negative work-up she is placed on lansoprazole and Zofran. She is currently nauseated stating she is out of Zofran. 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) Secondary pulmonary arterial hypertension Home Medications albuterol sulfate 1 puff INHALATION Q4H PRN PRN 04/25/17 [History Last Taken Unknown] epinephrine 0.3 mg IM X1 PRN 04/25/17 [History Last Taken Unknown] aspirin 325 mg tablet 325 mg PO DAILY 08/20/19 [History Last Taken 08/22/19] clopidogrel 75 mg tablet 75 mg PO DAILY #90 tab 09/05/21 [Rx Last Taken Unknown] lisinopril 20 mg tablet 20 mg PO DAILY #90 tab 09/05/21 [Rx Last Taken Unknown] metoprolol succinate 100 mg tablet,extended release 24 hr 100 mg PO DAILY #90 tab 09/05/21 [Rx Last Taken Unknown] lansoprazole [Prevacid] 30 mg PO DAILY #14 cap 02/18/22 [Rx Last Taken Unknown] ondansetron 4 mg PO Q8H PRN PRN #10 tab 02/18/22 [Rx Last Taken Unknown] gabapentin 100 mg PO TID #60 cap 03/03/22 [Rx Last Taken Unknown] hydrocodone-acetaminophen 1 tab PO Q6H PRN 3 Days #12 tab 03/03/22 [Rx Last Taken Unknown] ondansetron 4 mg PO Q6H PRN #20 tab 03/03/22 [Rx Last Taken Unknown] Allergy/AdvReac Type Severity Reaction Status Date / Time ketorolac tromethamine Allergy Shortness Verified 03/03/22 13:17 [From Toradol] of breath Family History Father Heart disease AVR BAV Brother Hypertension Sister Hypertension Mother Diabetes Hypertension Other Cancer Myocardial infarction Surgical History History of hysterectomy History of left heart catheterization (08/22/19) Social History Smoking Status: Never smoker alcohol intake: current alcohol intake frequency: holidays/special occasions only ROS ROS ED Constitutional Constitutional ED: Denies chills, fever(s) or sweats Eyes Eyes: Denies change in vision ENT ENT ED: Denies dysphagia or sore throat Cardiovascular Cardiovascular: Denies chest pain, leg edema, palpitations or racing heartbeat Respiratory/Chest Respiratory/Chest: Denies cough, dyspnea or dyspnea on exertion Gastrointestinal Gastrointestinal: Denies abdominal pain, diarrhea, nausea or vomiting Genitourinary Genitourinary ED: Denies dysuria, hematuria or urinary frequency Musculoskeletal Musculoskeletal: Denies back pain, extremity pain or neck pain Integumentary Reports other Details: scalp lesion. ; Denies rash or wounds Neurologic Neurologic: Reports headache(s); Denies paresthesias or weakness EXAM Physical Exam Const Vital Signs: 03/03/22 13:15 03/03/22 13:55 Temperature 99.3 F H Temperature Source Oral Pulse Rate 116 H Respiratory Rate 15 Respiratory Effort Normal Respiratory Pattern Normal Blood Pressure 208/106 H Blood Pressure Mean 140 Pulse Ox 98 Oxygen Delivery Method Room Air Positive well nourished and well developed General Appearance ED: well developed and NAD HEENT Reports moist mucous membranes normocephalic and atraumatic Eyes PERRL, EOMs intact bilaterally and conjunctivae normal General Eye ED: Yes normal appearance of both eyes Neck no lymphadenopathy and supple General: Negative for tenderness Chest Wall Chest: Negative for tenderness Resp normal respiratory effort and normal air movement Effort and Inspection: symmetric chest movement; Negative for respiratory distress Cardio regular rate, regular rhythm and no murmurs Peripheral Pulses: pulses 2+ throughout GI normal to inspection, nondistended, normoactive bowel sounds and non-tender Palpation: Negative for guarding or rebound tenderness present Back/Spine no CVA tenderness and no thoracic nor lumbar tenderness Extremity normal to inspection General Extremety ED: Negative for edema or tenderness General Extremity: Negative for edema Neuro oriented x3 and no sensory deficits noted Sensorium / Orientation: awake and alert Skin no wounds Skin Narrative: Scalp: 4 cm nodule posterior right side scalp raised, no fluctuance, there was a noted puncture wound with no active bleeding. No surrounding erythema no vesicles. MDM MDM MDM Narrative Medical decision making narrative: Patient concern with new lesion with headache. CT scan negative for intracranial process. Dense tissue noted per radiology. This was firm on examination she reports this is new from 4 days ago. Requested starting gabapentin for nerve pain, this is region of her occipital nerve, will treat for symptoms. Started in the ED. Short prescription was written. She will use Tylenol as needed. She given Zofran for nausea updated prescription given. She has a nonsurgical abdomen. She is following up with GI DrLamonte Friend as an outpatient she is on lansoprazole. Her hemoglobin is 8.3 from a couple weeks ago she denies any GI bleed issues. She will monitor for the symptoms and keep for follow-up. There is no indication for transfusions from criteria. She had elevated blood pressure on arrival had a headache with a negative scan no chest pains no vomiting or diarrhea. She takes her blood pressure medicines at night. Likely elevated with slight tachycardia due to pain symptoms. Additional [place] sent for pain control to her pharmacy. She will have this rechecked by her PCP. Outpatient follow-up with return precautions. All questions were answered. Radiography Diagnostic Testing: Clinical Impression(s) from Imaging Studies Brain CT 03/03/22 14:06 IMPRESSION: Soft tissue density in the scalp overlying the posterior right parietal bone. Electronically Signed: Tim Arora MD at 14:38 EDT , Discharge Plan Triage Chief Complaint: General Illness ED Provider: Alonso Hart Dx/Rx/DC Orders Clinical Impression: Scalp lesion, Headache, Anemia, Gastritis, Elevated blood pressure reading in office with diagnosis of hypertension Instructions: Anemia, ED Gastritis (Adult), Epidermoid Cyst Infect Antibiotics Prescriptions: New gabapentin 100 mg capsule 100 mg PO TID Qty: 60 RF: 0 ondansetron 4 mg tablet,disintegrating 4 mg PO Q6H PRN (Reason: nausea and vomiting) Qty: 20 RF: 0 hydrocodone-acetaminophen 5-325 mg tablet 1 tab PO Q6H PRN (Reason: pain) 3 Days Qty: 12 RF: 0 No Action aspirin 325 mg tablet 325 mg PO DAILY RF: 0 albuterol sulfate 1 INHALER inhaler 1 puff inhalation Q4H PRN PRN (Reason: Wheezing) RF: 0 epinephrine 0.3 MG syringe 0.3 mg IM X1 PRN (Reason: Anaphylaxis) RF: 0 ondansetron [ondansetron] 4 MG tablet 4 mg PO Q8H PRN PRN (Reason: Nausea) Qty: 10 RF: 0 lansoprazole [Prevacid] 30 mg capsule,delayed release(DR/EC) 30 mg PO DAILY Qty: 14 RF: 0 clopidogrel 75 mg tablet 75 mg PO DAILY Qty: 90 RF: 3 lisinopril 20 mg tablet 20 mg PO DAILY Qty: 90 RF: 3 metoprolol succinate 100 mg tablet extended release 24 hr 100 mg PO DAILY Qty: 90 RF: 3 Primary Care Provider: Owen Samuels Referrals: Owen Samuels MD [Primary Care Provider] - 3-5 Days Ralf Cortes DO [STAFF PHYSICIAN] - Keep [facility] appointment Activity Restrictions/Additional Instructions: CT scan brain with soft tissue lesion externally. No intracranial involvement. Finish your antibiotic. Take gabapentin as prescribed. Use Tylenol as needed. Follow-up with your doctor for the planned referral to surgery. Follow-up with GI as planned for your GI symptoms. Your hemoglobin is 8.3 couple weeks ago. Monitor for any bloody stools. Continue your lansoprazole, Zofran as needed. Disposition Disposition: Home, Self Care Discharge Date/Time: 03/03/22 16:15
[2022-03-03] MEDS: Gabapentin 100 MG Capsule PO (14:40)
[2022-03-03 16:11] VITALS: BP 188/102; PULSE 841; RESP 16; O2SAT 99
--- NOTE | 2022-03-03 16:12 | ED.RN ---
pt pain not imporved. pt drove self to ed. dr hua to send electronic rx for pt to take when she gets home
== END 2022-03-03 16:15 | disposition home or self-care (01) ==
PROVIDERS: Emergency Provider Emergency Medicine; PCP Family Medicine; Visit Provider Emergency Medicine
DX: L98.9 Disorder of the skin and subcutaneous tissue, unspecified (principal); I27.21 Secondary pulmonary arterial hypertension; I11.0 Hypertensive heart disease with heart failure; I50.32 Chronic diastolic (congestive) heart failure; R51.9 Headache, unspecified; K29.70 Gastritis, unspecified, without bleeding; I25.10 Atherosclerotic heart disease of native coronary artery without angina pectoris; D64.9 Anemia, unspecified; I25.2 Old myocardial infarction; J45.909 Unspecified asthma, uncomplicated; Z79.899 Other long term (current) drug therapy; Z79.82 Long term (current) use of aspirin; Z79.02 Long term (current) use of antithrombotics/antiplatelets
CPT/HCPCS: 70450; 99282

== ENCOUNTER → 2022-04-27 | Outpatient (CLI) | payer BC, SELFPAY ==
--- NOTE | 2022-04-27 15:28 | RAD_ITS ---
EXAM: XR ABDOMEN, 1 VIEW CLINICAL INDICATION: PillCam capsule in stomach still TECHNIQUE: Frontal supine view of the abdomen/pelvis. This report was created using [employer] report generation technology. COMPARISON: None. FINDINGS: LOWER THORAX: No acute pathology. GASTROINTESTINAL TRACT: Unremarkable. Non-obstructive. No bowel or stomach distention. No radiopaque foreign bodies identified. ORGANS: Unremarkable as visualized. No organomegaly. No abnormal calcifications. BONES/JOINTS: No acute pathology. SOFT TISSUES: No acute pathology. RAD/Abdomen Single View IMPRESSION: No radiopaque foreign bodies identified. Electronically Signed: Arash Burch MD at 3:20 EDT ,
== END | disposition home or self-care (01) ==
LOC: RAD 15:28
PROVIDERS: PCP Family Medicine; Referring Provider Nurse Practitioner Adult Health; Visit Provider Nurse Practitioner Adult Health
DX: D64.9 Anemia, unspecified (principal); R93.89 Abnormal findings on diagnostic imaging of other specified body structures
CPT/HCPCS: 74018

== ENCOUNTER → 2024-10-06 | Outpatient (CLI) | payer OTHER, SELFPAY | END | disposition home or self-care (01) | PROVIDERS: PCP Family Medicine; Referring Provider Physician Assistant; Visit Provider Physician Assistant | DX: G31.89 Other specified degenerative diseases of nervous system (principal); W19.XXXA Unspecified fall, 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 | CPT/HCPCS: 72040; 72070; 72100; 73030; 73502 ==

== ENCOUNTER 2024-10-29 11:30 | Outpatient (RCR) | payer OTHER, SELFPAY ==
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
--- NOTE | 2025-01-05 12:54 | HP.PTDCNRP_ITS ---
Patient Information Patient Information: JOLIE JEROME was seen in my office for initial evaluation on 10/22/24. The following Plan of Care was established for this patient: POC Established Initial Frequency: 2-3x /Week Initial Duration: 4-6 Weeks Anticipated Interventions Patient/Client Instruction: Educate patient on: Condition and Plan of Care For the Purpose of:: To improve self management Therapeutic Exercise to Include: Strength training, Body mechanics, Postural training and Scapular Strength/Stabilization For the Purpose of:: To decrease pain, To increase ROM and To improve muscle performance and motor function Manual Therapy Techniques to Include: Soft tissue mobilization For the Purpose of:: To decrease pain and To increase ROM Ultrasound (thermal/non thermal): Yes For the Purpose of:: To decrease pain Last Seen Last Seen: This patient was last seen in our office . Pertinent comments regarding their Physical therapy will appear below: Pt has not returned for physical therapy for greater than 30 days and is discontinued at this time. At this point I will be discontinuing this patient from physical therapy. I wou ld be happy to see this patient again in the future if found appropriate by the physician. Thank you! Vasu Branch, PT, ATC Balance/Gait/Functional tests Balance/Special Test Scores Oswestry Neck Score: 19
== END 2024-10-29 19:00 | disposition home or self-care (01) ==
LOC: PT 11:30
PROVIDERS: PCP Family Medicine; Referring Provider Physician Assistant; Visit Provider Physician Assistant
DX: S16.1XXD Strain of muscle, fascia and tendon at neck level, subsequent encounter (principal)
CPT/HCPCS: 97035; 97110; 97140; 97161

== ENCOUNTER → 2025-05-25 | Outpatient (CLI) | payer BC, SELFPAY ==
--- NOTE | 2025-05-25 08:41 | EKG12_ITS ---
Test Reason : PREOP Blood Pressure : */* mmHG Vent. Rate : 64 BPM Atrial Rate : 64 BPM P-R Int : 162 ms QRS Dur : 74 ms QT Int : 364 ms P-R-T Axes : 58 36 77 degrees QTcB Int : 375 ms Normal sinus rhythm Possible Inferior infarct , age undetermined Abnormal ECG Confirmed by NIGHAT DE LA O, ZAKIA ([id number]), greeting card editor ASA HINDS ([id number]) on 05/26/2025 6:37:51 AM Referred By: Galen Robert Confirmed By: ZAKIA DISLA MD
[2025-05-25 10:27] LABS: Hemoglobin 12.3 g/dL (12.0-15.0); Mean Corp Hgb Conc 31.5 g/dL (32-36); Mean Corpuscular Hgb 28.7 pg (27.0-32.0); Mean Corpuscular Volume 90.9 fL (81-99); Mean Platelet Vol. 10.7 fl (6.2-12.0); Platelet Count 301 K/mm3 (150-450); RBC Distribution Width CV 14.3 % (11.6-14.6); RBC Distribution Width SD 47.6 fl (35.1-43.9); Red Blood Count 4.29 M/mm3 (4.2-5.4); White Blood Count 6.1 K/mm3 (4.4-11.0)
[2025-05-25 11:11] LABS: Anion Gap 9 (5-15); BUN 14 mg/dL (4-19); BUN/Creat Ratio 17.1 RATIO (10-20); Calcium,Total 9.4 mg/dL (7.6-11.0); Carbon Dioxide 25.5 mmol/L (21.0-32.0); Chloride 106 mmol/L (98-108); Creatinine, Serum 0.81 mg/dL (0.70-1.20); EST Glomerular Filtration Rate 83 (>60); Glucose 119 mg/dL (70-99); Potassium 4.7 mmol/L (3.3-5.1); Sodium Level 141 mmol/L (133-145)
== END | disposition home or self-care (01) ==
LOC: PSN 08:41
PROVIDERS: PCP Family Medicine; Referring Provider Otolaryngology; Visit Provider Otolaryngology
DX: Z01.812 Encounter for preprocedural laboratory examination (principal); Z01.810 Encounter for preprocedural cardiovascular examination
CPT/HCPCS: 36415; 80048; 85027; 93005

== ENCOUNTER → 2025-06-16 | Outpatient (CLI) | payer BC, SELFPAY ==
[2025-06-16 14:40] LABS: Hematocrit 40.3 % (37-47); Hemoglobin 12.8 g/dL (12.0-15.0); Immature Granulocytes Count 0.020 X10^3/uL (0.0-0.0); Mean Corp Hgb Conc 31.8 g/dL (32-36); Mean Corpuscular Volume 91.0 fL (81-99); Mean Platelet Vol. 10.4 fl (6.2-12.0); NRBC Flagged by Analyzer 0 % (0-5); Platelet Count 268 K/mm3 (150-450); RBC Distribution Width CV 13.8 % (11.6-14.6); RBC Distribution Width SD 46.5 fl (35.1-43.9); Red Blood Count 4.43 M/mm3 (4.2-5.4); White Blood Count 7.8 K/mm3 (4.4-11.0)
--- OUTSIDE RECORDS SUMMARY | 2025-06-16 20:54 | XMS RPT_ITS | CCD ---
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 04/25/25 1715 (!) 166/82 -- -- -- -- 93 % -- -- 04/25/25 1700 (!) 161/78 -- -- -- -- 93 % -- -- 04/25/25 1650 -- (!) 101.5 degrees F (38.6 degrees C) -- -- -- -- -- -- 04/25/25 1645 (!) 144/75 -- -- -- -- 93 % -- -- 04/25/25 1624 (!) 173/96 (!) 101.5 degrees F (38.6 degrees C) Temporal 95 (!) 20 94 % 5' 4 77.1 kg (170 lb) Physical Exam Vitals and nursing note reviewed. Constitutional: Appearance: Normal appearance. Interventions: She is not intubated. HENT: Head: Normocephalic. Eyes: Pupils: Pupils are equal, round, and reactive to light. Cardiovascular: Rate and Rhythm: Normal rate and regular rhythm. Pulses: Normal pulses. Heart sounds: Normal heart sounds. Musculoskeletal: Cervical back: Normal range of motion. Pulmonary: Effort: Pulmonary effort is normal. No tachypnea or accessory muscle usage. She is not intubated. Breath sounds: Rhonchi and rales present. No wheezing. Chest: Chest wall: No mass, tenderness or edema. Abdominal: Palpations: Abdomen is soft. There is no hepatomegaly or mass. Tenderness: There is no guarding. Skin: General: Skin is warm. Capillary Refill: Capillary refill takes less than 2 seconds. Neurological: General: No focal deficit present. Mental Status: She is alert. Psychiatric: Mood and Affect: Mood normal. Laboratory & Radiographic Imaging (if done): Results for orders placed or performed during the hospital encounter of 04/25/25 POC CBC and Differential Result Value Ref Range WBC 10.95 4.50 - 11.00 K/mcL RBC 4.31 4.00 - 5.20 M/mcL Hemoglobin (more content not included)... Normal [facility] POC B-TYPE NATRIURETIC PEPTI DE (BNP) - [facility] 04-25-2025 Natriuretic peptide B (Bld) [Mass/Vol] 73.8 pg/mL Normal <100 [facility] POC BASIC METABOLIC PANEL - [facility] 04-25-2025 Chloride [Moles/Vol] 105 mmol/L Normal 98-108 [facility] Comment on above: Order Comment: [facility] has implemented the eGFR calculation approach that does not have a coefficient for race that conforms to the NKF-ASN Task Force Recommendations. CO2 [Moles/Vol] 29 mmol/L Normal 21-32 [facility] Comment on above: Order Comment: [facility] has implemented the eGFR calculation approach that does not have a coefficient for race that conforms to the NKF-ASN Task Force Recommendations. Creatinine [Mass/Vol] 0.70 mg/dL Normal 0.40-1.10 [facility] Comment on above: Order Comment: [facility] has implemented the eGFR calculation approach that does not have a coefficient for race that conforms to the NKF-ASN Task Force Recommendations. Glucose [Mass/Vol] 151 mg/dL High 65-99 [facility] Comment on above: Order Comment: [facility] has implemented the eGFR calculation approach that does not have a coefficient for race that conforms to the NKF-ASN Task Force Recommendations. POC GFR 99 mL/min/1.73 m2 Normal >=60 [facility] Comment on above: Order Comment: [facility] has implemented the eGFR calculation approach that does not have a coefficient for race that conforms to the NKF-ASN Task Force Recommendations. Result Comment: Allie mated GFR was calculated using the 2020 CKD-EPI creatinine equation. POC IONIZED CALCIUM 4.5 mg/dL Normal 4.5-5.3 [facility] Comment on above: Order Comment: [facility] has implemented the eGFR calculation approach that does not have a coefficient for race that conforms to the NKF-ASN Task Force Recommendations. Potassium [Moles/Vol] 3.6 mmol/L Normal 3.5-5.1 [facility] Comment on above: Order Comment: [facility] has implemented the eGFR calculation approach that does not have a coefficient for race that conforms to the NKF-ASN Task Force Recommendations. Sodium [Moles/Vol] 142 mmol/L Normal 135-145 [facility] Comment on above: Order Comment: [facility] has implemented the eGFR calculation approach that does not have a coefficient for race that conforms to the NKF-ASN Task Force Recommendations. Urea nitrogen [Mass/Vol] 15 mg/dL Normal 8-25 [facility] Comment on above: Order Comment: [facility] has implemented the eGFR calculation approach that does not have a coefficient for race that conforms to the NKF-ASN Task Force Recommendations. POC CBC AND DIFFERENTIALon 0 04-25-2025 BASOPHILS ABSOLUTE COUNT 0.04 K/mcL Normal 0.00-0.30 [facility] Basophils/100 WBC (Bld) 0.4 % Normal G [facility] Eosinophils (Bld) [#/Vol] 0.24 10*3/uL Normal 0.00-0.50 [facility] Eosinophils/100 WBC (Bld) 2.2 % Normal [facility] Erythrocyte distribution width (RBC) [Ratio] 14.4 % Normal 11.6-14.8 [facility] Hematocrit (Bld) [Volume fraction] 38.8 % Normal 36.0-46.0 [facility] Hemoglobin (Bld) [Mass/Vol] 12.4 g/dL Normal 12.0-16.0 [facility] IG ABSOLUTE 0.02 K/mcL Normal 0.00-0.30 [facility] IG PERCENT 0.20 % Normal [facility] Comment on above: Result Comment: The IG parameter is the percentage of metamyelocytes, myelocytes and promyelocytes. An immature granulocyte count (IG) of 1% or more suggests the possibility of infection, an IG count of 3% is very likely related to an infection. Lymphocytes (Bld) [#/Vol] 1.01 10*3/uL Normal 0.90-4.00 [facility] Lymphocytes/100 WBC (Bld) 9.2 % Normal [facility] MCH (RBC) [Entitic mass] 28.8 pg Normal 26.0-34.0 [facility] MCV (RBC) [Entitic vol] 90.0 fL Normal 80.0-100.0 [facility] MEAN CORPUSCULAR HEMOGLOBIN CONC 32.0 g/dL Normal 31.0-37.0 [facility] Monocytes (Bld) [#/Vol] 0.88 10*3/uL Normal 0.30-0.90 [facility] Monocytes/100 WBC (Bld) 8.0 % Normal [facility] NEUTROPHILS ABSOLUTE COUNT 8.76 K/mcL High 1.70-7.00 [facility] Neutrophils/100 WBC (Bld) 80.0 % Normal [facility] Platelet mean volume (Bld) [Entitic vol] 9.9 fL Normal 9.4-12.4 [facility] Platelets (Bld) [#/Vol] 237 10*3/uL Normal 150-400 [facility] RBC (Bld) [#/Vol] 4.31 10*6/uL Normal 4.00-5.20 [facility] WBC (Bld) [#/Vol] 10.95 10*3/uL Normal 4.50-11.00 [facility] POC INFLUENZA A/B - Vanda 0 04-25-2025 POC INFLUENZA A (FSED) Not detected Normal Not Detected [facility] POC INFLUENZA B (FSED) Not detected Normal Not Detected [facility] < Normal <0.05 [facility] XR CHEST PA/APon 04-25-2025 XR CHEST PA/AP EXAMINATION: XR CHEST PA/AP 04/25/2025 4:32 pm HISTORY: ORDERING SYSTEM PROVIDED HISTORY: Shortness of breath, TECHNOLOGIST PROVIDED HISTORY: Illness/Other Reason for exam: shortness of breath Cancer History: n Surgery, RadiationHistory: cardiac cath Encounter Type: Initial Additional signs and symptoms: pt c/o sob,fever. hx asthma, [place] ORDERING SYSTEM PROVIDED DIAGNOSIS CODES: J18.9 Pneumonia J45.21 Mild intermittent asthma with acute exacerbation COMPARISON: None FINDINGS: Trachea, mediastinum and heart size are unremarkable. No infiltrate or nodule or effusion or pneumothorax is noted. Diaphragm and bony elements are intact. Mild degenerative changes at the mid and lower thoracic spine. IMPRESSION: Nonacute PA chest. Workstation ID: [id number] Dictated by: MARY ANN ELLISON on Sat April 25, 2025 5:16:03 PM EDT Transcribed by: MARY ANN ELLISON on Sat April 25, 2025 5:16:03 PM EDT Finalized by: MARY ANN ELLISON on Sat April 25, 2025 5:16:03 PM EDT Normal [facility] Comment on above: Order Comment: Injur y/Trauma or Illness?:Illness/Other How long have you had these symptoms (acute/chronic)?:Acute Reason for exam?:shortness of breath History of cancer?:n Surgeries, chemotherapy, or radiation?:cardiac cath Type of Exam?:Initial Additional signs and symptoms?:pt c/o sob,fever. hx asthma, [place] CNOVon 03-12-2025 CNOV Office Visit ([facility] ) JOLIE SCHWARTZ ([id number]) 1965 F Date Time Provider Department 03/12/25 4:15 PM LOLI FRANCIS [facility] During your visit today, we recorded the following information about you: Temperature Pulse Respiration Blood pressure 97.2 degrees 65/minute 18/minute 163/92 Weight 79 kg Francis Franks APRN.POWER ENGINEER 03/12/2025 4:28 PM Signed [facility] Subjective Jolie Schwartz is a 59 year old female. Patient presents with: Pain: X 1 month total, trouble hearing, and hearing ocean HPI Nontoxic-appearing 59-year-old female presents urgent care chief complaint ear pressure. Duration of symptoms 1 month. Associated symptoms as above. Was seen by colleague last week. Placed on doxycycline for maxillary sinusitis impacted cerumen left ear. States symptoms have stayed persistent. OTC medications none. No hearing loss or otorrhea. No trauma. Denies any fevers. Overall feels well. Past medical history prescription medications allergies reviewed. Review of Systems Constitutional: Negative for chills, diaphoresis, fatigue and fever. HENT: Positive for ear pain. Negative for congestion, drooling, ear discharge, hearing loss, rhinorrhea, sinus pressure, sinus pain, sneezing, sore throat and trouble swallowing. Eyes: Negative for pain, discharge, redness, itching and visual disturbance. Respiratory: Negative for cough, chest tightness, shortness of breath and wheezing. Cardiovascular: Negative for chest pain. Gastrointestinal: Negative for abdominal distention, abdominal pain, blood in stool, constipation, diarrhea, nausea and vomiting. Genitourinary: Negative for difficulty urinating and dysuria. Musculoskeletal: Negative for arthralgias, joint swelling, neck pain and neck stiffness. Skin: Negative for rash. Neurological: Negative for dizziness, weakness, numbness and headaches. Objective BP 163/92 Pulse 65 Temp 36.2 ?C (97.2 ?F) Resp 18 Wt 79 kg (174 lb 2.6 oz) LMP 11/23/2008 SpO2 96% BMI 28.98 kg/m? Physical Exam Constitutional: Appearance: Normal appearance. HENT: Head: Normocephalic. Jaw: No trismus, tenderness, swelling or pain on movement. Right Ear: Tympanic membrane, ear canal and external ear normal. Left Ear: Tympanic membrane, ear canal and external ear normal. Ears: Comments: Clear fluid noted behind bilateral TMs. Nose: No congestion. Mouth/Throat: Mouth: Mucous membranes are moist. Pharynx: Oropharynx is clear. Uvula midline. No oropharyngeal exudate or posterior oropharyngeal erythema. Eyes: Conjunctiva/sclera: Conjunctivae normal. Cardiovascular: Rate and Rhythm: Normal rate. Pulmonary: Effort: Pulmonary effort is normal. Breath sounds: Normal breath sounds. No wheezing, rhonchi or rales. Abdominal: Palpations: Abdomen is soft. Tenderness: There is no abdominal tenderness. There is no guarding or rebound. Musculoskeletal: General: Normal range of motion. Cervical back: Normal range of motion and neck supple. No edema or erythema. No pain with movement. Normal range of motion. Lymphadenopathy: Cervical: No cervical adenopathy. Skin: General: Skin is warm. Findings: No rash. Neurological: General: No focal deficit present. Mental Status: She is alert and oriented to person, place, and time. Mental status is at baseline. {ASSESSMENT/PLAN: 1. Eustachian tube dysfunction, bilateral - ICD9: 381.81, ICD10: H69.93 Diagnosed with eustachian tube dysfunction. No evidence of bacterial infection. Patient was educated on supportive therapies. Patient will follow up with primary care provider PCP 7 to 10 days for reevaluation of patient was instructed to immediately proceed to emergency room for any new, worsening, or symptoms lasting longer than anticipated. The patient's clinical presentation is otherwise unremarkable at this time. Based on exam and clinical finding, the patient is stable for discharge. Plan of care was discussed with patient. Patient verbalizes understanding and agrees to plan of care. This note was generated using VODECLIC software. It may contain errors in wording, punctuation, or spelling. Francis Franks APRN.POWER ENGINEER MDM Procedures Allergies As of Date: 03/12/2025 Noted Allergy Reaction ADULT ALLERGY 03/06/2025 16 - Unknown Comments: Cats, Dogs, Dust mites molds (January through September) trees (January, February and March) grasses (March and April) weeds (June, July and August) ragweed (June, July and August) Oranges [employer] Tape MELOXICAM 05/22/2016 14 - Other: See Comments Comments: Patient thinks she may have had a heart attack related to that. TORADOL (KETOROLAC) 05/08/2013 12 - Shortness of Breath Comments: Triggered an asthma exacerbation. Pt has subsequently taken other NSAIDs without adverse reaction. Date Reviewed: 03/12/2025 Reviewed by: [place] (more content not included)... Normal [facility] CNOVon 03-06-2025 CNOV Office Visit ([facility] ) JOLIE SCWHARTZ ([id number]) 1965 F Date Time Provider Department 03/06/25 1:15 PM LUDWIN RORDIGUEZ [facility] During your visit today, we recorded the following information about you: Temperature Pulse Respiration Blood pressure 98.4 degrees 73/minute 20/minute 184/93 Weight 79 kg Ludwin Rodriguez APRN.POWER ENGINEER 03/06/2025 2:53 PM Signed [facility] Subjective Jolie Ronjohnna is a 59 year old female. Patient presents with: Cough: Chest congestion, headache, nasal congestion, SOB, wheeze, fatigue sweating x 3 weeks Ear Pain: Left ear pain x 1.5 weeks Cough Associated symptoms include ear pain and wheezing. Pertinent negatives include no chest pain and no shortness of breath. Ear Pain Associated symptoms include coughing. Pertinent negatives include no chest pain. Patient is a 59 year old female with a history of asthma, HTN, and heart disease present with cough, sinus congestion, and left year pain for last several weeks. She states in the last three weeks she has used 80 puff of her albuterol, she denies any chest pain or shortness of breath. She has no seen a nursery attendant in some time. She is most concerned about not being able to hear out of her left ear, she started using a sinus nasal spray that her sister suggested with no relief. Review of Systems HENT: Positive for ear pain and sinus pain. Respiratory: Positive for cough and wheezing. Negative for chest tightness and shortness of breath. Cardiovascular: Negative for chest pain, palpitations and leg swelling. Objective BP 184/93 Pulse 73 Temp 36.9 ?C (98.4 ?F) Resp 20 Wt 79 kg (174 lb 2.6 oz) LMP 11/23/2008 SpO2 98% BMI 28.98 kg/m? Physical Exam Vitals reviewed. Constitutional: Appearance: Normal appearance. HENT: Right Ear: External ear normal. A middle ear effusion is present. Left Ear: External ear normal. There is impacted cerumen. Eyes: General: Lids are normal. Cardiovascular: Rate and Rhythm: Normal rate and regular rhythm. Heart sounds: Normal heart sounds, S1 normal and S2 normal. Pulmonary: Effort: Pulmonary effort is normal. Breath sounds: No decreased breath sounds, wheezing, rhonchi or rales. Lymphadenopathy: Cervical: No cervical adenopathy. Neurological: Mental Status: She is alert. {ASSESSMENT/PLAN: 1. Impacted cerumen of left ear - ICD9: 380.4, ICD10: H61.22 (primary diagnosis) Irrigated out today 2. Acute non-recurrent maxillary sinusitis - ICD9: 461.0, ICD10: J01.00 - Will begin treatment with Doxycycline - Supportive care with plenty of fluids, rest, and analgesia prn. - Follow up in 3-5 days if symptoms persist or worsen. Ludwin Rodriguez APRN.POWER ENGINEER History and Record Review External record(s) reviewed: prior outpatient record. Findings from review of outpatient records: pcp appointment verses pulmonology Differential Diagnoses - sinusitis is more likely for the following reason(s): suggested by HANDP - asthma excerbation is less likely for the following reason(s): HANDP not suggestive Additional Tests or Interventions The following medication(s) were considered but not ordered: steroids, no acute asthma exacerbation, heart disease and uncontrolled blood pressure Disposition The patient was discharged. OTC Medications were advised: Flonase/Nasacort Patient well is well-appearing nontoxic in no acute respiratory distress. She presents today with acute sinusitis and a cerumen impaction. Symptoms been consistent.. Ear canal was irrigated out today in clinic without complications. Did discuss with her that with 3 weeks of symptoms she is on albuterol discussed that she is ever seen pulmonology or been on a maintenance medication such as Flovent. No concerns for asthma exacerbation or acute pneumonia today. Discussed need to follow-up with primary care versus pulmonology as she is not well-controlled asthma even when sick. She hasn't seen nursery attendant in some time. Blood pressure elevated, she is on lisinopril discussed if she is taking at home or at work and she hasn't been lately. Discussed blood pressure is not well-controlled today and did need to make a follow-up appointment with her primary care provider. Patient verbalized understanding and in agreement with plan. She was discharged home. Pancho Saucedo MA 03/06/2025 2:53 PM Signed Ambulatory Ear Lavage Pre-treatment: Warm water Treatment: Left ear Equipment and Irrigation solution and Volume used: Single use syringe with single use irrigation tip Return flow appearance: Debris Patient tolerated procedure: yes Tympanic membrane assessment: Tympanic membrane assessed by LIP pre and post procedure JOSE Laurent Kayli, APRN.CNP 03/06/2025 2:01 PM Signed [facility] PATIENT INFO ACUTE SINUSITIS OVERVIEW Rhinosinusitis, or more commonly sinusitis, i (more content not included)... Normal [facility] CBC (H/H, RBC, INDICES, WBC, PLT)on 01-23-2025 Erythrocyte distribution width (RBC) [Ratio] 13.6 % Normal 11.0-15.0 [facility] Comment on above: Performed By: #### 6 , 899, 1759, 54576, 7600 #### [facility] [address] [employer] Officer: Med Ham MD Hematocrit (Bld) [Volume fraction] 43.2 % Normal 35.0-45.0 [facility] Comment on above: Performed By: #### 6 , 89, 1759, 80986, 7600 #### [facility] [address] [employer] Officer: Med Ham MD Hemoglobin (Bld) [Mass/Vol] 13.8 g/dL Normal 11.7-15.5 [facility] Comment on above: Performed By: #### 6 , 899, 1759, 85657, 7600 #### [facility] [place] [address] [employer] Officer: Med Ham MD MCH (RBC) [Entitic mass] 28.2 pg Normal 27.0-33.0 [facility] Comment on above: Performed By: #### 6 , 89, 175, 78808, 7600 #### [facility] [place] [address] [employer] Officer: Med Ham MD MCHC (RBC) [Mass/Vol] 31.9 g/dL Low 32.0-36.[address] [facility] Comment on above: Result Comment: For adults, a slight decrease in the calculated MCHC value (in the range of 30 to 32 g/dL) is most likely not clinically significant; however, it should be interpreted with caution in correlation with other red cell parameters and the patient's clinical condition. Performed By: #### 6 , , 175, 14727, 7600 #### [facility] [place] [address] [employer] Officer: Med Ham MD MCV (RBC) [Entitic vol] 88.2 fL Normal 80.0-100.0 [facility] Comment on above: Performed By: #### 6 , , 175, 14775, 7600 #### [facility] [place] [address] [employer] Officer: Med Ham MD Platelet mean volume (Bld) [Entitic vol] 10.8 fL Normal 7.5-12.5 [facility] Comment on above: Performed By: #### 6 , , 175, 24096, 7600 #### [facility] [place] [address] [employer] Officer: Med Ham MD Platelets (Bld) [#/Vol] 288 10*3/uL Normal 140-400 [facility] Comment on above: Performed By: #### 6 , , 175, 36495, 7600 #### [facility] of [address], [address] [place] [address] [employer] Officer: Med Ham MD RBC (Bld) [#/Vol] 4.90 10*6/uL Normal 3.80-5.10 [facility] Comment on above: Performed By: #### 6 22, 899, 1759, 93023, 7600 #### [facility] of [address], [address] [place] [address] [employer] Officer: Med Ham MD WBC (Bld) [#/Vol] 5.8 10*3/uL Normal 3.8-10.8 [facility] Comment on above: Performed By: #### 6 22, 899, 175, 84638, 7600 #### [facility] of [place] [address] [employer] Officer: Med Ham MD COMPREHENSIVE METABOLIC PANE L W/ANION GAPon 01-23-2025 Albumin [Mass/Vol] 4.4 g/dL Normal 3.6-5.1 [facility] Comment on above: Performed By: #### 6 22, 899, 175, 67233, 7600 #### [facility] of [place] [address] [employer] Officer: Med Ham MD ALP [Catalytic activity/Vol] 60 U/L Normal 37-153 [facility] Comment on above: Performed By: #### 6 22, 899, 1759, 16897, 7600 #### [facility] of [place] [address] [employer] Officer: Med Ham MD ALT [Catalytic activity/Vol] 22 U/L Normal 6-29 [facility] Comment on above: Performed By: #### 6 22, 899, 1759, 23289, 7600 #### [facility] of [place] [address] [employer] Officer: Med Ham MD AST [Catalytic activity/Vol] 17 U/L Normal 10-35 [facility] Comment on above: Performed By: #### 6 22, 899, 175, 26747, 7600 #### [facility] [place] [address] [employer] Officer: Med Ham MD Bilirubin [Mass/Vol] 0.9 mg/dL Normal 0.2-1.2 [facility] Comment on above: Performed By: #### 6 22, 899, 175, 79480, 7600 #### [facility] [place] [address] [employer] Officer: Med Ham MD Calcium [Mass/Vol] 9.2 mg/dL Normal 8.6-10.4 [facility] Comment on above: Performed By: #### 6 22, 89, 175, 25752, 7600 #### [facility] [place] [address] [employer] Officer: Med Ham MD Chloride [Moles/Vol] 103 mmol/L Normal 98-110 [facility] Comment on above: Performed By: #### 6 22, 899, 175, 47544, 7600 #### [facility] [place] [address] [employer] Officer: Med Ham MD CO2 [Moles/Vol] 28 mmol/L Normal 20-32 [facility] Comment on above: Performed By: #### 6 22, 89, 175, 19149, 7600 #### [facility] [place] [address] [employer] Officer: Med Ham MD Creatinine [Mass/Vol] 0.71 mg/dL Normal 0.50-1.[address] [facility] Comment on above: Performed By: #### 6 22, 899, 175, 44332, 7600 #### [facility] of [place] [address] [employer] Officer: Med Ham MD ELECTROLYTE BALANCE 9 mmol/L (calc) Normal 7-17 [facility] Comment on above: Performed By: #### 6 22, 899, 175, 58764, 7600 #### [facility] [place] [address] [employer] Officer: Med Ham MD GFR/1.73 sq M.predicted among non-blacks MDRD (S/P/Bld) [Vol rate/Area] 97 mL/min/{1.73_m2} Normal > OR = 60 [facility] Comment on above: Performed By: #### 6 22, 89, 175, 63006, 7600 #### [facility] [place] [address] [employer] Officer: Med Ham MD Glucose [Mass/Vol] 106 mg/dL Normal 65-139 [facility] Comment on above: Result Comment: Non-fasting reference interval For someone without known diabetes, a glucose value between 100 and 125 mg/dL is consistent with prediabetes and should be confirmed with a follow-up test. Performed By: #### 6 , 89, 175, 28475, 7600 #### [facility] [place] [address] [employer] Officer: Med Ham MD Potassium [Moles/Vol] 4.6 mmol/L Normal 3.5-5.[address] [facility] Comment on above: Performed By: #### 6 , , 175, 58568, 7600 #### [facility] [place] [address] [employer] Officer: Med Ham MD Protein [Mass/Vol] 7.1 g/dL Normal 6.1-8.1 [facility] Comment on above: Performed By: #### 6 , 89, 175, 62263, 7600 #### [facility] [place] [address] [employer] Officer: Med Ham MD Sodium [Moles/Vol] 140 mmol/L Normal 135-146 [facility] Comment on above: Performed By: #### 6 , 89, 1759, 74025, 7600 #### [facility] [address], [address] [place] [address] [employer] Officer: Med Ham MD Urea nitrogen [Mass/Vol] 13 mg/dL Normal 7-25 [facility] Comment on above: Performed By: #### 6 22, 899, 1759, 91618, 7600 #### [facility] [address], [address] [place] [address] [employer] Officer: Med Ham MD LIPID PANEL, [facility] - Cholesterol [Mass/Vol] 221 mg/dL High <200 [facility] Comment on above: Order Comment: FASTI NG:NO FASTING: NO Performed By: #### 6 22, 899, 1759, 34150, 7600 #### [facility] [place] [address] [employer] Officer: Med Ham MD Cholesterol in HDL [Mass/Vol] 86 mg/dL Normal > OR = 50 [facility] Comment on above: Order Comment: FASTI NG:NO FASTING: NO Performed By: #### 6 22, 899, 1759, 20983, 7600 #### [facility] [place] [address] [employer] Officer: Med Ham MD Cholesterol in LDL [Mass/Vol] 118 mg/dL High [facility] Comment on above: Order Comment: FASTI NG:NO FASTING: NO Result Comment: Refe rence range: <100 Desirable range <100 mg/dL for primary prevention; <70 mg/dL for patients with CHD or diabetic patients with > or = 2 CHD risk factors. LDL-C is now calculated using the Cesar calculation, which is a validated novel method providing better accuracy than the Friedewald equation in the estimation of LDL-C. Leopoldo SILVA et al. DANICA. 2013;310(19): 9591-0475 (http://education.AkaRx.Otonomy/faq/HKI070) Performed By: #### 6 22, 899, 1759, 09109, 7600 #### [facility] [place] [address] [employer] Officer: Med Ham MD Cholesterol.total/Kelsey sterol in HDL [Mass ratio] 2.6 {ratio} Normal <5.0 [facility] Comment on above: Order Comment: FASTI NG:NO FASTING: NO Performed By: #### 6 22, 899, 175, 59404, 2840 #### [facility] [place] [address] [employer] Officer: Med Ham MD NON HDL CHOLESTEROL 135 mg/dL (calc) High <130 [facility] Comment on above: Order Comment: FASTI NG:NO FASTING: NO Result Comment: For patients with diabetes plus 1 major ASCVD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 A HEART CATH DONE TWO TIMES., Active Hysterectomy: Past Surgical History, Active ASTHMA: Past Medical History, Active SOCIAL DRINKING: Social/Behavioral, Active Electronic Signatures: Irina Flores (RN) (Signed 28-Oct-2022 20:33) Entered: Risk Screens, Pain, Arrival, ABCD, Immunizations, Travel History, Chart Review, Scores, Past Medical History Authored: Quick Triage, Risk Screens, Pain, Arrival, ABCD, Immunizations, Travel History, Chart Review, Scores, Past Medical History Last Updated: 28-Oct-2022 20:33 by Irina Flores (RN) [facility] Office Visit (Primary Care T xt/Forms)on 10-05-2022 Follow-up visit Diagnoses/Problems Assessed Chronic bilateral low back pain without sciatica (724.2,338.29) (M54.50,G89.29) Orders Chronic bilateral low back pain without sciatica Renew: Gabapentin 300 MG Oral Capsule; TAKE 1 CAPSULE 3 times daily Chief Complaint 2WK FU History of Present Illness Back pain is stable on the gabapentin 3 times a day without problems I have personally reviewed the OARRS report for this patient. This report is viewed or scanned into the electronic medical record. I have considered the risks of abuse, dependence, addiction and diversion. I believe that it is clinically appropriate for this patient to be prescribed this medication. X-ray showed DDD and OA MRI later today Limit 8 hours/day for work for 4 weeks for now Review of Systems Musculoskeletal: joint pain localized to one or more joints, joint stiffness and back pain. Active Problems Problems Anemia (285.9) (D64.9) CAD (coronary artery disease) (414.00) (I25.10) Chronic bilateral low back pain without sciatica (724.2,338.29) (M54.50,G89.29) Fatigue (780.79) (R53.83) Hypertension, essential (401.9) (I10) Mild intermittent asthma without complication (493.90) (J45.20) Mixed hyperlipidemia (272.2) (E78.2) Periumbilical abdominal pain (789.05) (R10.33) Scalp cyst (706.2) (L72.9) Vaginal bleeding, abnormal (623.8) (N93.9) Surgical History Problems History of Cardiac catheterization History of Partial hysterectomy Family History Mother Family history of cerebrovascular accident (CVA) (V17.1) (Z82.3) Family history of malignant neoplasm of uterus (V16.49) (Z80.49) Father Family history of cerebrovascular accident (CVA) (V17.1) (Z82.3) Sibling Family history of hypertension (V17.49) (Z82.49) Sister Family history of malignant neoplasm of breast (V16.3) (Z80.3) Social History Problems Caffeine use (V49.89) (Z78.9) Coffee Consumes alcohol occasionally (V49.89) (Z78.9) No advance directives (V49.89) (Z78.9) No illicit drug use Non-smoker (V49.89) (Z78.9) Current Meds Medication NameInstruction Albuterol Sulfate HFA 108 (90 Base) MCG/ACT Inhalation Aerosol SolutionINHALE 2 PUFFS FOUR TIMES DAILY DIRECTED. Aspirin 81 MG Oral Tablet Delayed ReleaseTAKE 1 TABLET DAILY. Gabapentin 300 MG Oral CapsuleTAKE 1 CAPSULE 3 times daily Lisinopril 20 MG Oral TabletTAKE 1 TABLET DAILY. Metoprolol Succinate ER 100 MG Oral Tablet Extended Release 24 HourTAKE 1 TABLET DAILY. Ondansetron 4 MG Oral Tablet DisintegratingTAKE 4 MG Every 8 hours PRN n/v Plavix 75 MG Oral TabletTAKE 1 TABLET DAILY. Allergies Medication Toradol Vitals Vital Signs Recorded: 05Oct2022 02:57PM Heart Rate: 86 Systolic: 126 Diastolic: 70 Height: 5 ft 4.5 in Weight: 172 lb 2 oz BMI Calculated: 29.09 kg/m2 BSA Calculated: 1.85 Tobacco Use: b) No PHQ-2 #1. Over the last 2 weeks have you felt down, depressed or hopeless? (If yes, answer PHQ-9 below): No PHQ-2 #2. Over the last 2 weeks have you felt little interest or pleasure in doing things? (If yes, answer PHQ-9 below): No Falls Screening (Age 18+): a) No falls within the last year O2 Saturation: 97 Physical Exam General: Alert and oriented, No acute distress. Ambulation status: With steady gait. Appearance: Well nourished, Calm. Behavior: Cooperative. Integumentary: Warm, Dry, Excel, Intact. Psychiatric: Cooperative, Appropriate mood AND affect, Normal judgment. Signatures Electronically signed by : Justice Samuels MD; Oct 05 2022 3:18PM EST (Author) [facility] PHQ-2 VITALSon 10-05-2022 Adult depression screening assessment No [facility] Work Phone: Fall risk assessment a) No falls within the last year [facility] Work Phone: Tobacco use status CPHS b) No M [facility] Work Phone: No Panel Informationon 09-22 Please click on the link to view the study images Normal [facility] Work Phone: Normal [facility] Work Phone: Office Visit (Primary Care T xt/Forms)on 09-22-2022 Follow-up visit Diagnoses/Problems Assessed Mild intermittent asthma without complication (493.90) (J45.20) Chronic bilateral low back pain without sciatica (724.2,338.29) (M54.50,G89.29) CAD (coronary artery disease) (414.00) (I25.10) Orders Chronic bilateral low back pain without sciatica Renew: Gabapentin 300 MG Oral Capsule; TAKE 1 CAPSULE 3 times daily MRI L Spine without Contrast; Status:Hold For - Scheduling; Requested for:22Sep2022; Radiologist to Determine Optimal Study : Y Does the patient have a Cochlear Implant, Pacemaker, Defibrilator, Pacing Wire, Brain Aneurysm Clip, Implanted Nerve or Bone Graft Simulator, Implanted Breast Tissue Business Integration Analyst, Glucose Monitor, or Neulasta Device? : No Is the patient or breast feeding? : No What are the patient's signs and symptoms? : pain Xray Lumbosacral Spine Min 4 View; Status:Active; Requested for:22Sep2022; Radiologist to Determine Optimal Study : Y What are the patient's signs and symptoms? : pain Mild intermittent asthma without complication Start: Albuterol Sulfate HFA 108 (90 Base) MCG/ACT Inhalation Aerosol Solution; INHALE 2 PUFFS FOUR TIMES DAILY DIRECTED Unlinked Temporarily Stop: Influenza, seasonal, injectable Patient Discussion/Summary Recheck [address] Samuels X-ray lumbar sacral spine MRI LS spine by request Reviewed spectrum of pharmacologic optionss he accepts only gabapentin 300 3 times daily. Reviewed [id number] nonsteroidals and Tylenol dosage range. Recommendation for physical therapy not excepted She states she doesn?t believe in PHTH. No routine HEP Chief Complaint 6 MO FU. LOWER BACK PAIN AND RIGHT HIP PAIN X 1 WK. STARTED TAKING GABAPENTIN PRESCRIBED IN FEBRUARY 2022 BY ER DOCTOR. 100 MG 1 TAB TID. PT IS TAKING IT 3 TABS TID TOTAL OF 9 DAILY. WOULD LIKE TO DISCUSS RENEWAL ON ALBUTEROL INHALER NOT ON PAST OR CURRENT MED LIST. DECLINED MAMMO AND COLONOSCOPY History of Present Illness sees cardiology at [facility], not on statin, mi in 2016 asthma since age 3 added dx and rx for albuterol, prev lung allergy, not recenmtly back pain-onset 40 years ago after spinal with childbirth, episodic recurring. 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 Most recent exacerbation began 1 week ago no known injury. Sharp and dull pain low back radiating into upper buttocks. No radiation down leg. No incontinence. No numbness tingling or weakness in lower extremities. Normal gait. Review of Systems As per HPI Active Problems Problems Anemia (285.9) (D64.9) CAD (coronary artery disease) (414.00) (I25.10) Fatigue (780.79) (R53.83) Hypertension, essential (401.9) (I10) Mixed hyperlipidemia (272.2) (E78.2) Periumbilical abdominal pain (789.05) (R10.33) Scalp cyst (706.2) (L72.9) Vaginal bleeding, abnormal (623.8) (N93.9) Surgical History Problems History of Cardiac catheterization History of Partial hysterectomy Family History Mother Family history of cerebrovascular accident (CVA) (V17.1) (Z82.3) Family history of malignant neoplasm of uterus (V16.49) (Z80.49) Father Family history of cerebrovascular accident (CVA) (V17.1) (Z82.3) Sibling Family history of hypertension (V17.49) (Z82.49) Sister Family history of malignant neoplasm of breast (V16.3) (Z80.3) Social History Problems Caffeine use (V49.89) (Z78.9) Coffee Consumes alcohol occasionally (V49.89) (Z78.9) No advance directives (V49.89) (Z78.9) No illicit drug use Non-smoker (V49.89) (Z78.9) Current Meds Medication NameInstruction Aspirin 81 MG Oral Tablet Delayed ReleaseTAKE 1 TABLET DAILY. Gabapentin 100 MG Oral CapsuleTAKE 3 CAPSULE 3 times daily Lisinopril 20 MG Oral TabletTAKE 1 TABLET DAILY. Metoprolol Succinate ER 100 MG Oral Tablet Extended Release 24 HourTAKE 1 TABLET DAILY. Ondansetron 4 MG Oral Tablet DisintegratingTAKE 4 MG Every 8 hours PRN n/v Plavix 75 MG Oral TabletTAKE 1 TABLET DAILY. Allergies Medication Toradol Vitals Vital Signs Recorded: 22Sep2022 11:29AM Heart Rate: 85 Systolic: 154 Diastolic: 86 Height: 5 ft 4.5 in Weight: 174 lb BMI Calculated: 29.41 kg/m2 BSA Calculated: 1.85 Tobacco Use: b) No Falls Screening (Age 18+): a) No falls within the last year O2 Saturation: 97 Physical Exam Mild tender lumbar paraspinals nontender spinous processes, mild tender upper gluteus nontender sciatic notch DTRs +2 equal knees +2 equal ankle jerks EHL strength equal bilaterally pain sensibility to light touch intact bilaterally Signatures Electronically signed by : Yordy Cochran MD; Sep 22 2022 12:57PM EST (Author) [facility] SPINE, LUMBOSACRAL MIN 4 VIE WSon 09-22-2022 SPINE, LUMBOSACRAL MIN 4 VIEWS Patient Name: JOLIE SCHWARTZ STUDY: SPINE, LUMBOSACRAL MIN 4 VIEWS; 09/22/2022 3:03 pm INDICATION: pain M54.50: Chronic bilateral low back pain without sciatica G89.29:. COMPARISON: None. ACCESSION NUMBER(S): [id number] ORDERING CLINICIAN: YORDY COCHRAN FINDINGS: Lumbar spine, multiple views There is mild osteophytosis and sclerosis in the lower lumbar spine. There is mild disc space narrowing L4-5. Mild facet disease at L5 as well. There is no fracture. There is no spondylolisthesis. IMPRESSION: Mild spondylotic changes throughout the lower lumbar spine worse at L4-L5. Facet disease as well. No acute abnormality Electronically signed by: KASIA RAUSCH MD [facility] Tobacco Screening.on 022 Fall risk assessment a) No falls within the last year [facility] Work Phone: Tobacco use status CPHS b) No M [employer] [facility] Work Phone: Provider Note - ED v3on 05 Provider Note - ED v3 Provider Note: Chart Review: ED NOTES ED NOTES: Patient presents for evaluation of insect bite to left ring finger to dorsal aspect that has been present for the past 3 to 4 days. She states she has noticed increased redness, swelling and pustular drainage beneath the skin. She denies fever, streaking from area of concern, nausea/vomiting/diarrh ea or any other associated constitutional symptoms or complaints no OTC meds used for symptom management. No other complaints. HISTORY OF PRESENTING ILLNESS JOLIE is a 56 year old Female and was seen by me at 04-Apr-2022 16:54. Triage Information: Most recent Vital Sign Value Date PAST MEDICAL HISTORY ALLERGIES/INTOLERANCES : Allergy Allergen: Toradol Type: Drug Reaction: Anaphylaxis (Severe) HEALTH HISTORY: No documented data. OUTPATIENT MEDICATIONS: Home Medications Review Status for Reconciliation: Complete Med Status: Patient Currently Takes Medications Drug Name: lisinopril Instructions: null Drug Name: Plavix Instructions: null Drug Name: metoprolol extended release Instructions: null Drug Name: aspirin Instructions: null Drug Name: Prevacid Instructions: null Drug Name: Bactrim DS 800 mg-160 mg oral tablet Instructions: 1 tab(s) orally 2 times a day SIGNIFICANT EVENTS: Past Medical History Description:ASTHMA Past Surgical History Description:Hysterecto my Description:HEART CATHETER Additional Notes:PT STATES SHE HAS HAD A HEART CATH DONE TWO TIMES. 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 NEUROLOGICAL: Alert and oriented, no focal deficits, no motor or sensory deficits. SKIN: Skin normal color for race, warm, dry and intact except for insect bite to also aspect of left ring finger with surrounding erythema and edema as well as pustular drainage, no streaking PSYCHIATRIC: Alert and oriented to person, place, time/situation. normal mood and affect. No apparent risk to self or others. CRITICAL CARE VITAL SIGNS: T PRBP SpO2O2(LPM) %FiO2 Method 04-Apr-2022 16:46:[id number]/8 0 95RA MDM MDM/ED COURSE: Discussed Findings with: patient Data Reviewed: vital signs Treatment Plan: Rx Bactrim DS. Pt decline solu-medrol injection for inflammation today. Advised to use otc ibuprofen and tylenol PRN. Patient's clinical presentation is otherwise unremarkable at this time. Patient is discharged with instructions to follow-up with primary care or seek emergency medical attention for worsening symptoms or any new concerns. DISPOSITION Diagnosis/Annotation: ED Dx Name:Cellulitis of left upper extremity Code:L03.114 Disposition: discharged Type: home CONSULT CRITICAL CARE TIME Is this a critically ill patient: no Electronic Signatures: Gary Moreno (SANDER SETTER-POWER ENGINEER) (Signed 04-Apr-2022 17:07) Authored: ED Notes, HPI, PMH, ROS, PE, Results/Vital Signs, MDM/ED Course, Clinical Impression, Attestation, Chart Review, Scores Last Updated: 04-Apr-2022 17:07 by Gary Moreno (SANDER SETTER-POWER ENGINEER) [facility] Falls Risk Screeningon 03-24 Adult depression screening assessment No [facility] Work Phone: Fall risk assessment a) No falls within the last year [facility] Work Phone: Tobacco use status CPHS b) No M [facility] [facility] Work Phone: Office Visit (Primary Care T xt/Forms)on 03-24-2022 Follow-up visit Diagnoses/Problems Assessed CAD (coronary artery disease) (414.00) (I25.10) Hypertension, essential (401.9) (I10) Mixed hyperlipidemia (272.2) (E78.2) Vaginal bleeding, abnormal (623.8) (N93.9) Anemia (285.9) (D64.9) Orders CAD (coronary artery disease), Hypertension, essential, Mixed hyperlipidemia Cardiology - General Referral Evaluation and Treatment Evaluate AND Treat Status: Hold For - Scheduling Requested for: 24Mar2022 Provider Impressions Provider Impressions Free Text Note Form: OV 6 months Chief Complaint 1MO FU REV LABS DONE History of Present Illness neck better. Surgery wants to remove cyst in scalp. Anemia - Hb is better to about 10 from 8. not on iron. Lipase level is normal, thyroid level is normal, other blood tests are normal. She still says she gets bleeding every month she has not seen the [facility] doc in at least 2 years. Highly recommend she make an appointment to see them soon as possible. Did discuss with her that cancer is on the possible diagnosis list if she still has her cervix. Also she had anemia and she was worried about an ulcer she does have a visit to see GI in [place] in a couple of weeks Again has the anemia and takes aspirin and Plavix. She does not have a stent according to her and I discussed with her that it is unusual to be on both of these medications without a stent. It has been a couple years also since she seen cardiology. Also she has known coronary artery disease and not on a high-dose statin medication. Again I discussed with her that this is very unusual. Both of these things I did do a referral to see cardiology because she needs follow-up. Lastly and once the above are done, I would recommend removal of the scalp cyst with surgery. Review of Systems Constitutional: No weakness, No fatigue. Eye: No blurring, No visual disturbances. Respiratory: No shortness of breath, No cough. Cardiovascular: No chest pain, No palpitations. Gastrointestinal: No nausea, No diarrhea, No constipation. Musculoskeletal: No joint pain, No muscle pain. Integumentary: No rash, No breakdown. Neurologic: Alert and oriented X4, No headache. Psychiatric: No irritability, No sleeping problems. Active Problems Problems Anemia (285.9) (D64.9) CAD (coronary artery disease) (414.00) (I25.10) Fatigue (780.79) (R53.83) Periumbilical abdominal pain (789.05) (R10.33) Scalp cyst (706.2) (L72.9) Vaginal bleeding, abnormal (623.8) (N93.9) Surgical History Problems History of Cardiac catheterization History of Partial hysterectomy Family History Mother Family history of cerebrovascular accident (CVA) (V17.1) (Z82.3) Family history of malignant neoplasm of uterus (V16.49) (Z80.49) Father Family history of cerebrovascular accident (CVA) (V17.1) (Z82.3) Sibling Family history of hypertension (V17.49) (Z82.49) Sister Family history of malignant neoplasm of breast (V16.3) (Z80.3) Social History Problems Caffeine use (V49.89) (Z78.9) Coffee Consumes alcohol occasionally (V49.89) (Z78.9) No advance directives (V49.89) (Z78.9) No illicit drug use Non-smoker (V49.89) (Z78.9) Current Meds Medication NameInstruction Aspirin 81 MG Oral Tablet Delayed ReleaseTAKE 1 TABLET DAILY. Lansoprazole 30 MG Oral Capsule Delayed ReleaseTAKE 1 CAPSULE Daily Lisinopril 20 MG Oral TabletTAKE 1 TABLET DAILY. Metoprolol Succinate ER 100 MG Oral Tablet Extended Release 24 HourTAKE 1 TABLET DAILY. Ondansetron 4 MG Oral Tablet DisintegratingTAKE 4 MG Every 8 hours PRN n/v Plavix 75 MG Oral TabletTAKE 1 TABLET DAILY. Allergies Medication Toradol Vitals Vital Signs Recorded: [id number] 10:52AM Heart Rate: 80 Systolic: 138 Diastolic: 76 Height: 5 ft 4.5 in Weight: 165 lb 2 oz BMI Calculated: 27.91 kg/m2 BSA Calculated: 1.81 Tobacco Use: b) No PHQ-2 #1. Over the last 2 weeks have you felt down, depressed or hopeless? (If yes, answer PHQ-9 below): No PHQ-2 #2. Over the last 2 weeks have you felt little interest or pleasure in doing things? (If yes, answer PHQ-9 below): No Fall Screening: a) No falls within the last year O2 Saturation: 100 Physical Exam General: Alert and oriented, No acute distress. Ambulation status: With steady gait. Appearance: Well nourished, Calm. Behavior: Cooperative. Respiratory: Lungs are clear to auscultation, Respirations are non-labored, Breath sounds are equal, Symmetrical chest wall expansion. Cardiovascular: Normal rate, Regular rhythm, No murmur, No gallop. Integumentary: Warm, Dry, Excel, Intact. Psychiatric: Cooperative, Appropriate mood AND affect, Normal judgment. Signatures Electronically signed by : Justice Samuels MD; Mar 24 2022 11:30AM EST (Author) Normal [employer] No Panel Informationon 03-18 2.440 {mIU/L} Normal 0.270-4.200 [facility] Work Phone: 26.4 ng/mL Normal 14.7-205.1 [facility] Work Phone: [phone] 12 % below low threshold 15-57 [facility] Work Phone: [phone] 390 ug/dL above high threshold 232-386 [facility] Work Phone: [phone] 45 ug/dL Normal 41-186 [facility] Work Phone: [phone] 102 {mL/min/1.73m???} Normal >=60 [employer] [facility] Work Phone: Comment on above: Estimated Glomerular Filtration Rate (eGFR) is calculated using the 2020 CKD-EPI creatinine equation. This equation utilizes serum creatinine, sex, and age as parameters. The creatinine assay has traceable calibration to isotope dilution-mass spectrometry. Refer to KDIGO guidelines for clinical interpretation. In patients with unstable renal function, e.g. those with acute kidney injury, the eGFR may not accurately reflect actual GFR. 17 U/L Normal 7-38 [facility] Work Phone: [phone] 29 U/L Normal 13-35 [facility] Work Phone: [phone] 4.5 mmol/L Normal 3.7-5.1 [employer] [facility] Work Phone: 139 mmol/L Normal 136-144 [employer] [facility] Work Phone: 0.66 mg/dL Normal 0.58-0.96 [employer] [facility] Work Phone: 11 mg/dL Normal 7-21 [employer] [facility] Work Phone: 103 mg/dL above high threshold 74-99 [employer] [facility] Work Phone: Comment on above: The [place] Diabete s Association (ADA) provides guidance for cutoff values for fasting glucose and random glucose. The ADA defines fasting as no caloric intake for at least 8 hours. Fasting plasma glucose results between 100 to 125 mg/dL indicate increased risk for diabetes (prediabetes).Fasting plasma glucose results greater than or equal to 126 mg/dL meet the criteria for diagnosis of diabetes. In the absence of unequivocal hyperglycemia, results should be confirmed by repeat testing. In a patient with classic symptoms of hyperglycemia or hyperglycemic crisis, random plasma glucose results greater than or equal to 200 mg/dL meet the criteria for diagnosis of diabetes.Reference: Standards of Medical Care in Diabetes 2016, [place] Diabetes Association. Diabetes Care. 2016.39(Suppl 1). 9 mmol/L Normal 9-18 [employer] [facility] Work Phone: 27 mmol/L Normal 22-30 [employer] [facility] Work Phone: 103 mmol/L Normal 97-105 -[employer] [facility] Work Phone: 70 U/L Normal 34-123 [employer] [facility] Work Phone: 0.7 mg/dL Normal 0.2-1.3 [employer] [facility] Work Phone: 9.6 mg/dL Normal 8.5-10.2 [employer] [facility] Work Phone: 4.2 g/dL Normal 3.9-4.9 [employer] [facility] Work Phone: 7.2 g/dL Normal 6.3-8.0 [facility] Work Phone: [phone] 46 U/L Normal 16-61 [facility] Work Phone: [phone] <0.01 Normal <0.01 [facility] Work Phone: [phone] 11.0 fL Normal 9.0-12.7 [facility] Work Phone: [phone] 415 {k/uL} above high threshold 150-400 [facility] Work Phone: [phone] 14.9 % Normal 11.5-15.0 [facility] Work Phone: 28.4 g/dL below low threshold 30.5-36.0 [facility] Work Phone: 25.3 pg below low threshold 26.0-34.0 [facility] Work Phone: 89.2 fL Normal 80.0-100.0 [facility] Work Phone: 35.6 % below low threshold 36.0-46.0 [facility] [employer] [facility] Work Phone: 10.1 g/dL below low threshold 11.5-15.5 [employer] [facility] Work Phone: 3.99 m/uL Normal 3.90-5.20 [employer] [facility] Work Phone: 5.65 {k/uL} Normal 3.70-11.00 [facility] [employer] [facility] Work Phone: Office Visit (Primary Care T xt/Forms)on 03-02-2022 Follow-up visit Diagnoses/Problems Assessed Scalp cyst (706.2) (L72.9) Orders Periumbilical abdominal pain Renew: Lansoprazole 30 MG Oral Capsule Delayed Release; TAKE 1 CAPSULE Daily Scalp cyst Start: Amoxicillin-Pot Clavulanate 875-125 MG Oral Tablet; TAKE 1 TABLET EVERY 12 HOURS DAILY General Surgery Referral Evaluation and Treatment Evaluate AND Treat Dr Fuller or first available doc [place] surgery. Status: Hold For - Scheduling Requested for: 02Mar2022 Chief Complaint LUMP ON BACK OF HEAD, LYMPH NODES SWOLLEN SINCE SUNDAY History of Present Illness No trauma to the back of her head, no lesion on the back of her head before Sunday. An enlarging lesion,? Cyst, the last 4 days. Also feels like she has lymphadenopathy on both sides of her neck. Large grape sized fluctuant cyst scalp area. Looks like some drainage mostly bloody coming from a small area. Needle IANDD returned only blood no pus. Lymphadenopathy bilateral anterior neck. Augmentin twice a day x10 days Referral to general surgery to help drain the cyst If things get worse, she needs to go to the ER. new Rx done for lansoprazole - sent February 24 but Pharm did not get it? Review of Systems Constitutional: feeling tired, but no fever, not feeling poorly and no chills. Integumentary: skin lesion. Active Problems Problems Anemia (285.9) (D64.9) CAD (coronary artery disease) (414.00) (I25.10) Fatigue (780.79) (R53.83) Periumbilical abdominal pain (789.05) (R10.33) Vaginal bleeding, abnormal (623.8) (N93.9) Surgical History Problems History of Cardiac catheterization History of Partial hysterectomy Family History Mother Family history of cerebrovascular accident (CVA) (V17.1) (Z82.3) Family history of malignant neoplasm of uterus (V16.49) (Z80.49) Father Family history of cerebrovascular accident (CVA) (V17.1) (Z82.3) Sibling Family history of hypertension (V17.49) (Z82.49) Sister Family history of malignant neoplasm of breast (V16.3) (Z80.3) Social History Problems Caffeine use (V49.89) (Z78.9) Coffee Consumes alcohol occasionally (V49.89) (Z78.9) No advance directives (V49.89) (Z78.9) No illicit drug use Non-smoker (V49.89) (Z78.9) Current Meds Medication NameInstruction Aspirin 81 MG Oral Tablet Delayed ReleaseTAKE 1 TABLET DAILY. Lansoprazole 30 MG Oral Capsule Delayed ReleaseTAKE 1 CAPSULE Daily Lisinopril 20 MG Oral TabletTAKE 1 TABLET DAILY. Metoprolol Succinate ER 100 MG Oral Tablet Extended Release 24 HourTAKE 1 TABLET DAILY. Ondansetron 4 MG Oral Tablet DisintegratingTAKE 4 MG Every 8 hours PRN n/v Plavix 75 MG Oral TabletTAKE 1 TABLET DAILY. Allergies Medication Toradol Vitals Vital Signs Recorded: 02Mar2022 03:58PM Heart Rate: 108 Systolic: 148 Diastolic: 80 Height: 5 ft 4.5 in Weight: 168 lb BMI Calculated: 28.39 kg/m2 BSA Calculated: 1.83 Tobacco Use: b) No PHQ-2 #1. Over the last 2 weeks have you felt down, depressed or hopeless? (If yes, answer PHQ-9 below): No PHQ-2 #2. Over the last 2 weeks have you felt little interest or pleasure in doing things? (If yes, answer PHQ-9 below): No Fall Screening: a) No falls within the last year O2 Saturation: 97 Physical Exam General: Alert and oriented, No acute distress. Ambulation status: With steady gait. Appearance: Well nourished, Calm. Behavior: Cooperative. Integumentary: see HPI Psychiatric: Cooperative, Appropriate mood AND affect, Normal judgment. Signatures Electronically signed by : Justice Samuels MD; Mar 02 2022 4:41PM EST (Author) Normal [employer] Tobacco Screening.on Adult depression screening assessment No [employer] [facility] Work Phone: Fall risk assessment a) No falls within the last year [employer] [facility] Work Phone: Tobacco use status CP b) No M [employer] [facility] Work Phone: Office Visit (Primary Care T xt/Forms)on 02-24-2022 Follow-up visit Diagnoses/Problems Assessed Anemia (285.9) (D64.9) Vaginal bleeding, abnormal (623.8) (N93.9) Periumbilical abdominal pain (789.05) (R10.33) Fatigue (780.79) (R53.83) CAD (coronary artery disease) (414.00) (I25.10) Orders Anemia, Periumbilical abdominal pain Complete Blood Count; Status:Active; Requested for:24Feb2022; Comprehensive Metabolic Panel; Status:Active; Requested for:24Feb2022; Ferritin, Serum; Status:Active; Requested for:24Feb2022; Iron + TIBC, Serum; Status:Active; Requested for:24Feb2022; Fatigue TSH - Thyroid Stimulating Hormone, Serum; Status:Active; Requested for:24Feb2022; Periumbilical abdominal pain Renew: Lansoprazole 30 MG Oral Capsule Delayed Release; TAKE 1 CAPSULE Daily Lipase, Serum; Status:Active; Requested for:24Feb2022; SocHx: Non-smoker Tobacco Use Screening; Status:Complete; Done: 24Feb2022 Provider Impressions Provider Impressions Free Text Note Form: OV and lab 1 month. Chief Complaint DIRECTOR HOME- ER LYNN History of Present Illness CT in ER was ok. labs in ER ok except Hb 8.3 ( change per ER from 13). Lipase 191. sounds like viral AGE was the cause of the symptoms for ER visit. symptoms are better now. colonoscopy done before but likely < 50 years old. done around the time of hyster for anemia. did recover from anemia. Known coronary artery disease takes the Plavix and the aspirin, but is not on a cholesterol pill. I recommend she consider high-dose statin for prevention of another heart attack. She said the last time she saw cardiology was likely prepandemic about 2 years ago virtual. CBC CMP TSH ferritin iron level in 1 month Office visit 1 month Stay on the Prevacid 30 mg once a day Keep the office visit with GI in [place] for early March. Also she said she has been having occasional vaginal discharge/bleeding monthly. She had a hysterectomy, but she said they left the cervix and the ovaries. Sounds like it has been about 2 years since she seen her [facility] doctor, and I recommend she follow-up with them as soon as possible in the next couple weeks because of the bleeding. I do not think she is bleeding enough to cause the anemia, so we still need to do work-up for GI. Review of Systems Gastrointestinal: no constipation, no diarrhea and no blood in stools. Genitourinary: no blood in urine. Hematologic/Lymphatic: no easy bruising and no easy bleeding. Surgical History Problems History of Cardiac catheterization History of Partial hysterectomy Family History Mother Family history of cerebrovascular accident (CVA) (V17.1) (Z82.3) Family history of malignant neoplasm of uterus (V16.49) (Z80.49) Father Family history of cerebrovascular accident (CVA) (V17.1) (Z82.3) Sibling Family history of hypertension (V17.49) (Z82.49) Sister Family history of malignant neoplasm of breast (V16.3) (Z80.3) Social History Problems Caffeine use (V49.89) (Z78.9) Coffee Consumes alcohol occasionally (V49.89) (Z78.9) No advance directives (V49.89) (Z78.9) No illicit drug use Non-smoker (V49.89) (Z78.9) Current Meds Medication NameInstruction Lansoprazole 30 MG Oral Capsule Delayed ReleaseTAKE 1 CAPSULE EVERY MORNING DAILY. Ondansetron 4 MG Oral Tablet DisintegratingTAKE 4 MG Every 8 hours PRN n/v Allergies Medication Toradol Vitals Vital Signs Recorded: 24Feb2022 11:02AM Heart Rate: 77 Systolic: 132 Diastolic: 68 Height: 5 ft 4.5 in Weight: 168 lb BMI Calculated: 28.39 kg/m2 BSA Calculated: 1.83 Tobacco Use: b) No PHQ-2 #1. Over the last 2 weeks have you felt down, depressed or hopeless? (If yes, answer PHQ-9 below): No PHQ-2 #2. Over the last 2 weeks have you felt little interest or pleasure in doing things? (If yes, answer PHQ-9 below): No Fall Screening: a) No falls within the last year O2 Saturation: 96 Physical Exam General: Alert and oriented, No acute distress. Ambulation status: With steady gait. Appearance: Well nourished, Calm. Behavior: Cooperative. Respiratory: Lungs are clear to auscultation, Respirations are non-labored, Breath sounds are equal, Symmetrical chest wall expansion. Cardiovascular: Normal rate, Regular rhythm, No murmur, No gallop. Integumentary: Warm, Dry, Excel, Intact. Psychiatric: Cooperative, Appropriate mood AND affect, Normal judgment. Signatures Electronically signed by : Justice Samuels MD; Feb 24 2022 11:59AM EST (Author) Normal [employer] Tobacco Screening.on 022 Adult depression screening assessment No [facility] Work Phone: Fall risk assessment a) No falls within the last year [facility] Work Phone: Tobacco use status CPHS b) No M [facility] Work Phone: Absolute lymphocyte counton 02-18-2022 Lymphocytes Auto (Unsp spec) [#/Vol] 1.80 10*3/uL 0.83-4.51 [facility] Work Phone: Basophil percentageon 2021 Basophil percentage 0 SEEN /hpf [facility] Work Phone: [phone] Basophils/100 WBC (Bld) 0.4 % 0-1 [facility] Work Phone: Bilirubin [Mass/Vol] 0.60 mg/dL 0.20-1.00 [facility] Work Phone: Comment on above: For patients on eltr ombopag therapy, use of Dimension [place] TBIL is not recommended. Chloride [Moles/Vol] 104 mmol/L 98-107 [facility] Work Phone: [phone] Eosinophils/100 WBC (Bld) 1.4 % 0-5 [facility] Work Phone: Glucose [Mass/Vol] 115 mg/dL 74-106 [facility] Work Phone: [phone] Comment on above: Fasting Glucose resu lt from 100 to 125 mg/dL suggests IMPAIRED HOMEOSTASIS per A.D.A. criteria. Lactate [Moles/Vol] 0.7 mmol/L 0.4-2.0 [facility] Work Phone: [phone] Neutrophils (Bld) [#/Vol] 7.4 10*3/uL 2.0-7.7 [facility] Work Phone: [phone] Neutrophils/100 WBC (Bld) 71.3 % 47-70 [facility] Work Phone: [phone] Potassium [Moles/Vol] 3.5 mmol/L 3.5-5.1 [facility] Work Phone: Protein [Mass/Vol] 6.9 g/dL 6.4-8.2 [facility] Work Phone: Sodium [Moles/Vol] 138 mmol/L 136-145 [facility] Work Phone: WBC (Bld) [#/Vol] 10.5 10*3/uL 4.4-11.0 [facility] Work Phone: Bilirubin Test strip Ql (U)o n 02-18-2022 Bilirubin Ql (U) Negative Negative [facility] Work Phone: Blood erythrocytes count (nu mber/volume)on 02-18-2022 RBC (Bld) [#/Vol] 2.85 10*6/uL 4.2-5.4 [facility] Work Phone: Blood hemoglobin measurement (mass/volume)on 02-18-2022 Hemoglobin (Bld) [Mass/Vol] 8.3 g/dL 12.0-15.0 [facility] Work Phone: Blood lymphocytes/100 leukoc yteson 02-18-2022 Lymphocytes/100 WBC (Bld) 17.2 % 19-41 [facility] Work Phone: Blood monocytes/100 leukocyt eson 02-18-2022 Monocytes/100 WBC (Bld) 8.5 % 0-10 [facility] Work Phone: Blood platelet mean volumeon 02-18-2022 Platelet mean volume (Bld) [Entitic vol] 10.5 fL 6.2-12.0 [facility] Work Phone: Determination of erythrocyte mean corpuscular volume (MCV)on 02-18-2022 MCV (RBC) [Entitic vol] 89.1 fL 81-99 [facility] Work Phone: Hematocrit Auto (Bld) [Volum e fraction]on 02-18-2022 Hematocrit (Bld) [Volume fraction] 25.4 % 37-47 [facility] Work Phone: Ketones Test strip Ql (U)on 02-18-2022 Ketones Ql (U) Negative Negative [facility] Work Phone: Laboratory - Chemistry and C hemistry - challengeon 02-18-2022 ALP [Catalytic activity/Vol] 70 U/L 45-117 [facility] Work Phone: ALT [Catalytic activity/Vol] 23 U/L 13-56 [facility] Work Phone: [phone] CO2 [Moles/Vol] 29.0 mmol/L 21.0-32.0 [facility] Work Phone: Globulin (S) [Mass/Vol] 3.6 g/dL 2.2-4.2 [facility] Work Phone: [phone] Lipase [Catalytic activity/Vol] 191 U/L 73-393 [facility] Work Phone: Urea nitrogen/Creatinine [Mass ratio] 18.8 mg/mg 10-20 [facility] Work Phone: Laboratory - Hematology and Cell countson 02-18-2022 Erythrocyte distribution width (RBC) [Entitic vol] 44.1 fL 35.1-43.9 [facility] Work Phone: Erythrocyte distribution width (RBC) [Ratio] 14.2 % 11.6-14.6 [facility] Work Phone: Immature granulocytes/100 WBC (Bld) 1.200 % 0.0-0.9 [facility] Work Phone: [phone] Comment on above: IG% - Immature Granu locytes (promyelocytes, myelocytes and metamyelocytes) > 1% indicates that a LEFT SHIFT is Present. MCH (RBC) [Entitic mass] 29.1 pg 27.0-32.0 [facility] Work Phone: [phone] Nucleated RBC/100 WBC (Bld) [Ratio] 0.4 % 0-5 [facility] Work Phone: [phone] MCHC Auto (RBC) [Mass/Vol]on 02-18-2022 MCHC (RBC) [Mass/Vol] 32.7 g/dL 32-36 [facility] Work Phone: Mucus LM Ql (Urine sed)on Mucus Ql (Urine sed) 0 SEEN /hpf [facility] Work Phone: Nitrite Test strip Ql (U)on 02-18-2022 Nitrite Ql (U) Negative Negative [facility] Work Phone: No Panel Informationon 02-18 Estimated Creatinine Clearance Calc 77.68 ml/min [facility] Work Phone: Estimated GFR (MDRD) Amer 112 mL/min >60 [facility] Work Phone: Comment on above: GFR Calc Estimated GFR (MDRD) Non-Af Amer 93 mL/min >60 [facility] Work Phone: Comment on above: Non- GFR Calc Troponin I High Sensitivity 6 pg/mL 3.0-54.0 [facility] Work Phone: Comment on above: Please Note: New Fatou t Units and Gender Specific Reference Ranges. For more information see Policy Stat Procedure [place] High Sensitivity Troponin (TNIH) and attachments. Platelets bldon 02-18-2022 Platelets (Bld) [#/Vol] 306 10*3/uL 150-450 [facility] Work Phone: Protein Test strip Ql (U)on 02-18-2022 Protein Ql (U) Negative Negative [facility] Work Phone: Serum or plasma albumin aniket urement (mass/volume)on 02-18-2022 Albumin [Mass/Vol] 3.3 g/dL 3.2-5.0 [facility] Work Phone: Serum or plasma albumin/glob ulin mass ratioon 02-18-2022 Albumin/Globulin [Mass ratio] 0.9 {ratio} 0.9-2.4 [facility] Work Phone: Serum or plasma calcium aniket urement (mass/volume)on 02-18-2022 Calcium [Mass/Vol] 8.1 mg/dL 8.5-10.1 [facility] Work Phone: Serum or plasma creatinine m easurement (mass/volume)on 02-18-2022 Creatinine [Mass/Vol] 0.69 mg/dL 0.55-1.02 [facility] Work Phone: Comment on above: The validity of the calculated GFR & GFRAA in patients over 70 years has not been determined. Clinical correlation is essential. Serum or plasma urea nitroge n measurement (mass/volume)on 02-18-2022 Urea nitrogen [Mass/Vol] 13 mg/dL 7-18 [facility] Work Phone: Squamous epithelial cells de tection in urine sediment by light microscopyon 02-18-2022 Epithelial cells.squamous LM Ql (Urine sed) 0 SEEN /hpf [facility] Work Phone: Thin prep Papanicolaou smear with manual screeningon 02-18-2022 Thin prep Papanicolaou smear with manual screening 13 U/L 15-37 [facility] Work Phone: Thin prep Papanicolaou smear with manual screening 5 5-15 [facility] Work Phone: Urine blood detectionon 01-25 RBC Ql (U) Negative Negative [facility] Work Phone: RBC Ql (U) 0 SEEN /hpf [facility] Work Phone: Urine clarityon 02-18-2022 Clarity (U) Clear Clear [facility] Work Phone: Urine color determinationon 02-18-2022 Color (U) Yellow Yellow [facility] Work Phone: Urine glucose detectionon Glucose Ql (U) Normal mg/dl Normal [facility] Work Phone: Urine leukocyte esterase det ection by dipstickon 03-26-2022 Leukocyte esterase Test strip Ql (U) 100 /ul Negative [facility] Work Phone: Urine pHon 02-18-2022 pH (U) 7.0 [pH] [facility] Work Phone: Urine sediment bacteria coun t by microscopy (number/high power field)on 02-18-2022 Bacteria LM.HPF (Urine sed) [#/Area] 0 /[HPF] None Seen [facility] Work Phone: Urine specific gravity measu rementon 02-18-2022 Specific gravity (U) [Rel density] 1.010 [facility] Work Phone: Urobilinogen Auto test strip Ql (U)on 02-18-2022 Urobilinogen Ql (U) Normal mg/dl Normal [facility] Work Phone: TSHon 03-06-2019 Thyrotropin Qn 1.83 mcIU/mL Normal 0.36-3.74 [facility] ([place]) Comment on above: Performed By: #### T SH #### [facility] [address] [place] [address] MA MAMMOGRAM SCREENING BILAT ERAL W/TOMOon 01-10-2019 MA MAMMOGRAM SCREENING BILATERAL W/CLAUDE ORIGINAL FROM: [facility] [address], [place] [address] PROCEDURE FOR: JOLIE SCHWARTZ [address] [place] [address] Home: PID#: [id number] Exam#: [id number] : 1965 Age: 53 TO: ELO DOBSON MD [address] [place], [place] [address] #[id number] BILATERAL DIGITAL SCREENING MAMMOGRAM 3D/2D WITH CAD WITH MEDIOLATERAL OBLIQUE CRANIOCAUDAL: 01/10/2019 Comparison is made to exams dated: 02/12/2017 mammogram and 11/30/2015 mammogram - [facility]. The tissue of both breasts is predominately fatty. Current study was also evaluated with a Computer Aided Detection (CAD) system. There is a benign density in the right breast. No significant masses, calcifications, or other findings are seen in either breast. There has been no significant interval change. IMPRESSION: BENIGN There is no mammographic evidence of malignancy. 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 Activated PTTon 10-25-2017 aPTT 25.9 s Normal 22.8-31.0 [facility] Comment on above: Performed By: #### G APTT ####[place] [address] CHEST SINGLE VIEWon 10-25-20 17 CHEST SINGLE VIEW Performed at [facility] APPROVED BY: EBONY DUENAS MD EXAMINATION: CHEST RADIOGRAPH (SINGLE VIEW AP OR PA) Clinical History: CoughM: XC1_3Comparison: None RESULT: Lines, tubes, and devices: None. Lungs and pleura: No consolidation. No lung mass. No pleural effusion. Cardiomediastinal silhouette: Normal cardiomediastinal silhouette. Other: IMPRESSION: Normal chest Normal [facility] Comprehensive Panelon 2016 Albumin 3.7 g/dL Normal 3.4-5.0 [facility] Comment on above: Performed By: #### G P14 ####[address] [address] Alkaline phosphatase (ALP) 64 U/L Normal 46-116 [facility] Comment on above: Performed By: #### G P14 ####[facility] [place], [place] [address] ALT-SGPT Blood 55 U/L Normal 12-78 [facility] Comment on above: Performed By: #### G P14 ####[address] [address] Anion gap 14 mmol/L Normal 8-16 [facility] Comment on above: Performed By: #### G P14 ####[address] [address] AST-SGOT Blood 34 U/L Normal 15-46 [facility] Comment on above: Performed By: #### G P14 ####[place] [address] Bilirubin Ql (U) 0.6 mg/dL Normal 0.2-1.0 [facility] Comment on above: Performed By: #### G P14 ####[place] [address] BUN (urea nitrogen) 17 mg/dL Normal 7-17 [facility] Comment on above: Performed By: #### G P14 ####[place] [address] Calcium 9.1 mg/dL Normal 8.5-10.1 [facility] Comment on above: Performed By: #### G P14 ####[address] [address] Chloride 100 mmol/L Normal 98-107 [facility] Comment on above: Performed By: #### G P14 ####[address] [address] CO2 26 mmol/L Normal 22-30 [facility] Comment on above: Performed By: #### G P14 ####[place] [address] Creatinine 0.79 mg/dL Normal 0.51-0.95 [facility] Comment on above: Performed By: #### G P14 ####[place] [address] Glucose mass conc 114 mg/dL High 70-99 [facility] Comment on above: Performed By: #### G P14 ####[facility] [place] [address] Potassium molar conc 4.0 mmol/L Normal 3.5-5.1 [facility] Comment on above: Performed By: #### G P14 ####[facility] [place] [address] Protein 7.3 g/dL Normal 6.4-8.2 [facility] Comment on above: Performed By: #### G P14 ####[facility] [place] [address] Sodium 136 mmol/L Normal 136-145 [facility] Comment on above: Performed By: #### G P14 ####[facility] [place] [address] Cult Bloodon 10-25-2017 Cult Blood Test performed at [facility] No growth Normal [facility] Comment on above: Performed By: #### C _BLO ####[place] [address] ED NOTEon 10-25-2017 ED NOTE HNO ID: [id number]: LILIA Olivierervice: Physical TherapyAuthor Type: Registered NurseType: ED NotesFiled: 10/25/2017 10:15 PMNote Text: Pt walked to the bathroom, pt was able to walk with steady gait withpulse ox of 97% with a HR of 120 Normal [facility] ED NOTE HNO ID: [id number] Author: Dallin Mena RN Service: Physical Therapy Author Type: Registered Nurse Type: ED Notes Filed: 10/25/2017 8:30 PM Note Text: Pt complains of increased shortness of breath and cough for the last week Normal [facility] ED PROV NOTEon 10-25-2017 ED PROV NOTE HNO ID: [id number]: FLETCHER Garnicaervice: Emergency MedicineAuthor Type: PhysicianType: ED Provider NotesFiled: 10/25/2017 10:47 PMNote Text:ED Provider NotePatient Name: Joliemarilyn ScruggsN: [id number] DATE: 10/25/17HistoryPatient presents with:Shortness of BreathHPIAndrea Jonny Schwartz is a 52-year-old female with a past medical history ofcoronary artery disease presenting with shortness of breath and cough.Cough is nonproductive and has been worsening over the past one week.Just complains of worsening shortness of breath with wheezing. She statesshe has a history of asthma and uses an albuterol as needed but statesit's not working with her symptoms. Has had subjective fever but has nottaken her temperature. Denies any chest pain or hemoptysis. Denies anynausea vomiting or diarrhea. Denies any lightheadedness or dizziness.Denies sick contacts.PAST MEDICAL HISTORYDiagnosis Date- Acute myocardial infarction RONEL 12/11- Anemia, unspecified- Asthma- Coronary arteriosclerosis- Diastolic heart failure (HCC)- Noncompliance with treatment- Other anaphylactic reaction 2006 ICU x 3 days, no cause identified, throat was swollen- Pulmonary hypertensionPAST SURGICAL HISTORYProcedure Laterality Date- COLONOSCOPY 11/26/2006 for anemia workup, coloscopy was ok- HYSTERECTOMY HX still has ovaries and cervix- LEFT HEART CATH 12/04/2015FAMILY HISTORYProblem Relation Age of Onset- Cancer Maternal Grandfather tumor on back- Heart Father had valve replaced (congenitally bicuspid)- Diabetes Mother- Hypertension Brother- Hypertension Sister- Colon Cancer Paternal Grandmother dx age 60; around age of dx- Breast Cancer Maternal Grandmother dx age 60; age 93- Hypertension Mother- Asthma Maternal Uncle- Asthma Paternal Aunt- Allergies Daughter- Allergies Maternal Uncle- Allergies Paternal AuntSocial HistorySocial History Main Topics- Smoking status: Never Smoker- Smokeless tobacco: None- Alcohol use Yes Comment: occasionally- Drug use: No- Sexual activity: Not CurrentlyALLERGIESAlle rgen Reactions- Environmental Aller* Other: See Comments Cats,Dogs,Dust mitesmolds (January through September)trees (January, February and March)grasses (March and April)weeds (June, July and August)ragweed (June, July and August)- Meloxicam Other: See Comments Patient thinks she may have had a heart attack related to that.- Toradol [Ketorolac] Shortness of Breath Triggered an asthma exacerbation. Pt has subsequently taken otherNSAIDs without adverse reaction.- Medical Tape [Other] Intolerance- Oranges [Other]Review of SystemsConstitutional: Positive for chills, fatigue and fever. Negative fordiaphoresis.HENT: Negative for congestion and sore throat.Eyes: Negative for photophobia and visual disturbance.Respirator y: Positive for cough, shortness of breath and wheezing.Negative for chest tightness.Cardiovascul ar: Negative for chest pain and leg swelling.Gastrointesti nal: Negative for abdominal pain, diarrhea, nausea andvomiting.Genitourin karyna: Negative for dysuria and hematuria.Musculoskele yan: Negative for back pain and neck pain.Skin: Negative for color change and rash.Neurological: Negative for dizziness, weakness, light-headedness andheadaches.All other systems reviewed and are negative.Physical ExamBP 132/72 Pulse 112 Temp (Src) 100.8 (Tympanic) Resp 20 Ht 5' 5(1.65m) Wt 173 lb (78.5kg) SpO2 98% LMP 11/23/2008 BMI 28.79kg/(m2).Physical ExamConstitutional: She is oriented to person, place, and time. She appearswell-developed and well-nourished.HENT:He ad: Normocephalic and atraumatic.Eyes: Conjunctivae and EOM are normal. Pupils are equal, round, andreactive to light.Neck: Normal range of motion. Neck supple.Cardiovascular: Regular rhythm, normal heart sounds and intact distalpulses. Tachycardia present.Pulmonary/Ches t: Effort normal. No accessory muscle usage. No respiratorydistress. She has decreased breath sounds. She has wheezes. She exhibitsno tenderness.Abdominal: Soft. Bowel sounds are normal. She exhibits no distension.There is no tenderness. There is no rebound and no guarding.Musculoskelet al: Normal range of motion. She exhibits no edema, tendernessor deformity.Neurological : She is alert and oriented to person, place, and time.Skin: Skin is warm and dry. No rash noted.Nursing note and vitals reviewed.Diagnostic TestingED Labs Ordered and ReviewedCBC + AUTO DIFF (AK,AV,EU,FV,HL,RAMSES,MM, SP) - Abnormal; Notable for thefollowing: Result Value Ref Range MCHC 31.8 (*) 31.9 - 35.6 % Lymphocyte # 0.58 (*) 0.68 - 2.93 thou/cmm All other components within normal limitsCOMPREHENSIVE METABOLIC PANEL (AK,AV,EU,FV,HL,RAMSES,MM, SP) - Abnormal;Notable for the following: Glucose 114 (*) 70 - 99 mg/dL All other components within normal limitsPROTHROMBIN TIME / PT (AK,AV,EU,FV,HL,RAMSES,MM, SP)ACTIVATED PTT (AK,AV,EU,FV,HL,RAMSES,MM, SP)LACTIC ACID / LACTATE (AK,AV,EU,FV,HL,RAMSES,MM, SP)MDRD GFRTROPONIN I (AK)URINALYSIS WITH MICROSCOPIC (AK,AV,EU,FV,HL,RAMSES,MM, SP)LACTIC ACID / LACTATE (AK,AV,EU,FV,HL,RAMSES,MM, SP)CULTURE BLOOD (AK,AV,EU,FV,HL,RAMSES,MM, SP)URINE CULTURE (AK,AV,EU,FV,HL,RAMSES,MM, SP)CULTURE BLOOD (AK,AV,EU,FV,HL,RAMSES,MM, SP)ProceduresMedical Decision Making / ED CourseED CourseDabridger Rodriges's DocumentationComment TimeEKG at 8:25 PM shows sinus rhythm at a rate of 126. No sign of acuteischemia or infarction. 10/25 2030Patient has infectious respiratory symptoms and signs of sepsis. A septicworkup was initiated. She was treated with a fluid bolus, breathingtreatments, and steroids.Her laboratory studies were all fairly unremarkable. Lactate was normal.Cultures are pending. She did not provide a urine sample. Chest x-raywas unremarkable. EKG and troponin showed no acute findings. She has nochest pain. She has no calf pain or swelling. No history of DVT or PE.On reevaluation, the patient felt better. She ambulated. She remainedtachycardic, but likely secondary to breathing treatments. Her oxygensaturation was 97%.Patient would like to go home. I suspect this is on asthma exacerbation.Given her comorbidities and symptoms, we'll treat with prednisone anddoxycycline. I advised her that she has signs of sepsis. If she is notimproving or if she has any worsening symptoms, she should return.Otherwise follow up with her primary care doctor.Encounter Diagnosis ICD-10-CM1. Asthmatic bronchitis with acute exacerbation, unspecified asthmaseverity, unspecified whether persistent J45.9012. Fever, unspecified fever cause R50.9PlanThe Patient was DISCHARGED: Counseled patient and family regarding labresults AND radiology results AND suspected diagnosis AND need for follow-up.Discharged home with verbal and written instructions. They wereinstructed to return as needed for persistent or worsening symptoms or anynew concerns.Condition at time of disposition: improved and stableSIGNATURE: GUERITA Chapman-VANDANA NOTE:I performed a history and physical examination of the patient andsupervised and discussed the management with the resident/PA. I discussedthe care/management plan with the PA/resident. I reviewed theresident/PA's note and agree with the documented findings and plan ofcare.Electronically verified by Deja Garnica MD10/25/17 2153 Normal [facility] Hemogram/Diffon 10-25-2017 Abs. Baso 0.02 thou/cmm Normal 0.00-0.08 [facility] Comment on above: Performed By: #### G CBCD ####[address] [address] Abs. [place] 0.77 thou/cmm Normal 0.19-0.80 [facility] Comment on above: Performed By: #### G CBCD ####[address] [address] Abs. Neut 6.69 thou/cmm Normal 1.35-7.21 [facility] Comment on above: Performed By: #### G CBCD ####[address] [address] Basophils/100 WBC Auto (Bld) 0.2 % Normal [facility] Comment on above: Performed By: #### G CBCD ####[address] [address] Eosinophils 0.05 thou/cmm Normal 0.00-0.36 [facility] Comment on above: Performed By: #### G CBCD ####[address] [address] Eosinophils/100 leukocytes 0.6 % Normal [facility] Comment on above: Performed By: #### G CBCD ####[address] [address] Erythrocyte distribution width Auto Ratio (RBC) 13.9 % Normal 11.8-14.5 [facility] Comment on above: Performed By: #### G CBCD ####[place] [address] Erythrocytes (RBC) 4.12 mil/cmm Normal 3.79-4.93 [facility] Comment on above: Performed By: #### G CBCD ####[address] [address] Hematocrit (HCT) 36.8 % Normal 34.7-43.3 [facility] Comment on above: Performed By: #### G CBCD ####[place] [address] Hemoglobin mass conc (Bld) 11.7 g/dL Normal 11.7-14.7 [facility] Comment on above: Performed By: #### G CBCD ####[address] [address] Lymphocytes 0.58 thou/cmm Low 0.68-2.93 [facility] Comment on above: Performed By: #### G CBCD ####[address] [address] Lymphocytes/100 leukocytes 7.2 % Normal [facility] Comment on above: Performed By: #### G CBCD ####[address] [address] MCH 28.4 pg Normal 27.4-32.8 [facility] Comment on above: Performed By: #### G CBCD ####[address] [address] MCHC mass conc (RBC) 31.8 % Low 31.9-35.6 [facility] Comment on above: Performed By: #### G CBCD ####[facility] [place], [place] [address] MCV 89.3 fL Normal 82.1-97.4 [facility] Comment on above: Performed By: #### G CBCD ####[address] [address] Monocytes/100 leukocytes 9.5 % Normal [facility] Comment on above: Performed By: #### G CBCD ####[address] [address] Platelet mean volume (PMV) 10.2 fL Normal 8.8-12.1 [facility] Comment on above: Performed By: #### G CBCD ####[address] [address] Platelets 260 thou/cmm Normal 150-370 [facility] Comment on above: Performed By: #### G CBCD ####[address] [address] Seg Neutrophil 82.5 % Normal [facility] Comment on above: Performed By: #### G CBCD ####[address] [address] WBC (Leukocytes) 8.1 thou/cmm Normal 4.4-9.7 [facility] Comment on above: Performed By: #### G CBCD ####[place] [address] Lactic Acidon 10-25-2017 Lactate 1.1 mmol/L Normal 0.4-2.0 [facility] Comment on above: Performed By: #### G LAC ####[address] [address] MDRD eGFRon 10-25-2017 eGFR (non-black) mL/min/{1.73_m2} Normal >60mL/m in/1 .73m2 [facility] Comment on above: Result Comment: If t he patient is , multiply the result by 1.210. Performed By: #### G GFR ####[address] [address] Protimeon 10-25-2017 INR Coag RelTime (PPP) 0.98 {INR} Normal [facility] Comment on above: Result Comment: Ehsan dard Therapy 2.0-3.0High Dose 2.5-3.5 Performed By: #### G PT ####[facility] [place], [place] [address] Prothrombin time (PT) Coag time (PPP) 10.1 s Normal 9.0-11.5 [facility] Comment on above: Performed By: #### G PT ####[place] [address] Troponin Ion 10-25-2017 Troponin I.cardiac mass conc ng/mL Normal <=0.07 [facility] Comment on above: Performed By: #### G TRP ####[place] [address] Office Visit: [facility] med f/u: h ead injury: Tekfor[employer] 05-02-2017 Fall risk assessment No [facility] Work Phone: Protein mass conc Done [facility] Work Phone: Tobacco smoking status FLIS Current every day smoker [facility] Work Phone: Office Visit: bronchitison 0 03-21-2010 Tobacco smoking status NHIS never [facility] Work Phone: Vital Signs Date Time Vital Sign Value Performing Clinician Facility 06-03-2025 15:04-0400 Body height 162.[address] Justice Samuels MD Work Phone: [facility] 06-03-2025 15:04-0400 Body mass index (BMI) [Ratio] 30.7 kg/m2 Dr. Justice Samuels MD Work Phone: [facility] 06-03-2025 15:04-0400 Body weight 81.[address] Justice Samuels MD Work Phone: [facility] 06-03-2025 15:04-0400 Diastolic blood pressure 84 mm[Hg] Dr. Justice Samuels MD Work Phone: [facility] 06-03-2025 15:04-0400 Heart rate 68 /min Dr. Justice Samuels MD Work Phone: [facility] 06-03-2025 15:04-0400 Respiratory rate 16 /min Dr. Justice Samuels MD Work Phone: [facility] 06-03-2025 15:04-0400 Systolic blood pressure 148 mm[Hg] Dr. Justice Samuels MD Work Phone: [facility] 05-04-2025 11:33-0400 Body height 163.8 cm Justice Samuels MD Work Phone: [facility] 05-04-2025 11:33-0400 Body mass index (BMI) [Ratio] 29.71 kg/m2 Justice Samuels MD Work Phone: [facility] 05-04-2025 11:33-0400 Body weight 79.74 kg Justice Samuels MD Work Phone: [facility] 05-04-2025 11:33-0400 Diastolic blood pressure 88 mm[Hg] Justice Samuels MD Work Phone: [facility] 05-04-2025 11:33-0400 Heart rate 76 /min Justice Samuels MD Work Phone: [facility] 05-04-2025 11:33-0400 SaO2% (BldA) [Mass fraction] 98 % Justice Samuels MD Work Phone: [facility] 05-04-2025 11:33-0400 Systolic blood pressure 156 mm[Hg] Justice Samuels MD Work Phone: [facility] 03-12-2025 16:06-0400 Body mass index (BMI) [Ratio] 28.98 kg/m2 Francis Franks APRN.POWER ENGINEER Work Phone: [facility] 03-12-2025 16:06-0400 Body temperature 97.2 [degF] Francis Franks APRN.POWER ENGINEER Work Phone: [facility] 03-12-2025 16:06-0400 Body weight 79 kg [facility]. [facility] SANDER SETTER.POWER ENGINEER Work Phone: [facility] 03-12-2025 16:06-0400 Diastolic blood pressure 92 mm[Hg] Francis Pendlebury SANDER SETTER.POWER ENGINEER Work Phone: [facility] 03-12-2025 16:06-0400 Heart rate 65 /min Francis Pendlebury SANDER SETTER.POWER ENGINEER Work Phone: [facility] 03-12-2025 16:06-0400 Respiratory rate 18 /min Francis [facility]endlest. [facility] SANDER SETTER.POWER ENGINEER Work Phone: [facility] 03-12-2025 16:06-0400 SaO2% (BldA) [Mass fraction] 96 % Francis Pendlest. [facility] SANDER SETTER.POWER ENGINEER Work Phone: [facility] 03-12-2025 16:06-0400 Systolic blood pressure 163 mm[Hg] Francis Pendlebury SANDER SETTER.POWER ENGINEER Work Phone: [facility] 03-06-2025 13:15-0400 Body mass index (BMI) [Ratio] 28.98 kg/m2 Ludwin Swank SANDER SETTER.POWER ENGINEER Work Phone: [facility] 03-06-2025 13:15-0400 Body temperature 98.4 [degF] Ludwin Swank SANDER SETTER.POWER ENGINEER Work Phone: [facility] 03-06-2025 13:15-0400 Body weight 79 kg Ludwin Swank SANDER SETTER.POWER ENGINEER Work Phone: [facility] 03-06-2025 13:15-0400 Diastolic blood pressure 93 mm[Hg] Ludwin Swank SANDER SETTER.POWER ENGINEER Work Phone: [facility] Comment on above: took BP meds this am 03-06-2025 13:15-0400 Heart rate 73 /min Ludwin Swank SANDER SETTER.POWER ENGINEER Work Phone: [facility] 03-06-2025 13:15-0400 Respiratory rate 20 /min Ludwin Sami SANDER SETTER.POWER ENGINEER Work Phone: [facility] 03-06-2025 13:15-0400 SaO2% (BldA) [Mass fraction] 98 % Ludwin Swank SANDER SETTER.POWER ENGINEER Work Phone: [facility] 03-06-2025 13:15-0400 Systolic blood pressure 184 mm[Hg] uLdwin Swank SANDER SETTER.POWER ENGINEER Work Phone: [facility] Comment on above: took BP meds this am 01-22-2025 09:07-0500 Body height 163.8 cm Justice Samuels MD Work Phone: [facility] 01-22-2025 09:07-0500 Body mass index (BMI) [Ratio] 29.1 kg/m2 Justice Samuels MD Work Phone: [facility] 01-22-2025 09:07-0500 Body weight 78.11 kg Justice Samuels MD Work Phone: [facility] 01-22-2025 09:07-0500 Diastolic blood pressure 86 mm[Hg] Justice Samuels MD Work Phone: [facility] 01-22-2025 09:07-0500 Heart rate 80 /min Justice Samuels MD Work Phone: [facility] 01-22-2025 09:07-0500 SaO2% (BldA) [Mass fraction] 97 % Justice Samuels MD Work Phone: [facility] 01-22-2025 09:07-0500 Systolic blood pressure 140 mm[Hg] Justice Samuels MD Work Phone: [facility] 05-14-2023 17:46-0400 Body temperature 98.2 [degF] Jessi Oglesby APRN.POWER ENGINEER Work Phone: [facility] 05-14-2023 17:46-0400 Body weight 80.29 kg Jessi Oglesby APRN.POWER ENGINEER Work Phone: [facility] 05-14-2023 17:46-0400 Diastolic blood pressure 110 mm[Hg] Jessi Oglesby APRN.POWER ENGINEER Work Phone: [facility] 05-14-2023 17:46-0400 Heart rate 98 /min Jessi Oglesby APRN.POWER ENGINEER Work Phone: [facility] 05-14-2023 17:46-0400 Respiratory rate 18 /min Jessi Oglesby APRN.POWER ENGINEER Work Phone: [facility] 05-14-2023 17:46-0400 SaO2% (BldA) [Mass fraction] 98 % Jessi Oglesby APRN.POWER ENGINEER Work Phone: [facility] 05-14-2023 17:46-0400 Systolic blood pressure 210 mm[Hg] Jessi Oglesby APRN.POWER ENGINEER Work Phone: [facility] 11-03-2022 10:26-0500 Body height 163.83 cm Justice Samuels Work Phone: [employer] [facility] Work Phone: 11-03-2022 10:26-0500 Body mass index (BMI) [Ratio] 28.58 kg/m2 Justice Samuels Work Phone: [employer] [facility] Work Phone: 11-03-2022 10:26-0500 Body surface area Derived from formula 1.83 m2 Justice Samuels Work Phone: [employer] [facility] Work Phone: 11-03-2022 10:26-0500 Body weight 76.72 kg Justice Samuels Work Phone: [employer] [facility] Work Phone: 11-03-2022 10:26-0500 Diastolic blood pressure 82 mm[Hg] Justice Samuels Work Phone: [employer] [facility] Work Phone: 11-03-2022 10:26-0500 Heart rate 78 /min Justice T Furness Work Phone: [facility] Work Phone: 11-03-2022 10:26-0500 SaO2% (BldA) [Mass fraction] 98 % Justice T Furness Work Phone: [facility] [facility] Work Phone: 11-03-2022 10:26-0500 Systolic blood pressure 152 mm[Hg] Justice T Furness Work Phone: [facility] [employer] [facility] Work Phone: 10-28-2022 22:28-0500 Body height 162.5 cm Justice Furness Other Phone: [facility] 10-28-2022 22:28-0500 Body temperature 97.7 [degF] Justice Furness Other Phone: [facility] 10-28-2022 22:28-0500 Body weight 75 kg Justice Furness Other Phone: [facility] 10-28-2022 22:28-0500 Diastolic blood pressure 98 mm[Hg] Justice Furness Other Phone: [facility] 10-28-2022 22:28-0500 Heart rate 87 /min Justice Furness Other Phone: [facility] 10-28-2022 22:28-0500 Respiratory rate 18 /min Justice Furness Other Phone: [facility] 10-28-2022 22:28-0500 SaO2% (BldA) [Mass fraction] 96 % Justice Furness Other Phone: [facility] 10-28-2022 22:28-0500 Systolic blood pressure 183 mm[Hg] Justice Furness Other Phone: [facility] 10-05-2022 14:57-0500 Body height 163.83 cm Justice T Furness Work Phone: [employer] Work Phone: 10-05-2022 14:57-0500 Body mass index (BMI) [Ratio] 29.09 kg/m2 Justice Samuels Work Phone: [employer] Work Phone: 10-05-2022 14:57-0500 Body surface area Derived from formula 1.85 m2 Justice Samuels Work Phone: [employer] Work Phone: 10-05-2022 14:57-0500 Body weight 78.08 kg Justice Samuels Work Phone: [employer] [facility] Work Phone: 10-05-2022 14:57-0500 Diastolic blood pressure 70 mm[Hg] Justice Samuels Work Phone: [employer] [facility] Work Phone: 10-05-2022 14:57-0500 Heart rate 86 /min Justice Samuels Work Phone: [employer] [facility] Work Phone: 10-05-2022 14:57-0500 SaO2% (BldA) [Mass fraction] 97 % Justice Samuels Work Phone: [employer] [facility] Work Phone: 10-05-2022 14:57-0500 Systolic blood pressure 126 mm[Hg] Justice Samuels Work Phone: [employer] [facility] Work Phone: 09-22-2022 11:29-0400 Body height 163.83 cm Justice Samuels Work Phone: [facility] [facility] Work Phone: 09-22-2022 11:29-0400 Body mass index (BMI) [Ratio] 29.41 kg/m2 Justice Samuels Work Phone: [facility] [facility] Work Phone: 09-22-2022 11:29-0400 Body surface area Derived from formula 1.85 m2 Justice Samuels Work Phone: [facility] Work Phone: 09-22-2022 11:29-0400 Body weight 78.93 kg Justice Samuels Work Phone: [facility] Work Phone: 09-22-2022 11:29-0400 Diastolic blood pressure 86 mm[Hg] Justice Samuels Work Phone: [facility] Work Phone: 09-22-2022 11:29-0400 Heart rate 85 /min Justice Samuels Work Phone: [facility] Work Phone: 09-22-2022 11:29-0400 SaO2% (BldA) [Mass fraction] 97 % Justice Samuels Work Phone: [employer] Work Phone: 09-22-2022 11:29-0400 Systolic blood pressure 154 mm[Hg] Justice Samuels Work Phone: [facility] Work Phone: 05-25-2022 15:14-0400 Body height 162.6 cm Roger Valdez MD Work Phone: [facility] 05-25-2022 15:14-0400 Body mass index (BMI) [Ratio] 28.73 kg/m2 Roger Valdez MD Work Phone: [facility] 05-25-2022 15:14-0400 Body weight 75.93 kg Roger Valdez MD Work Phone: [facility] 05-25-2022 15:14-0400 Diastolic blood pressure 89 mm[Hg] Roger Valdez MD Work Phone: [facility] 05-25-2022 15:14-0400 Heart rate 82 /min Roger Valdez MD Work Phone: [facility] 05-25-2022 15:14-0400 SaO2% (BldA) [Mass fraction] 96 % Roger Valdez MD Work Phone: [facility] 05-25-2022 15:14-0400 Systolic blood pressure 161 mm[Hg] Roger Valdez MD Work Phone: [facility] 03-24-2022 10:52-0400 Body height 163.83 cm Justice Samuels Work Phone: [facility] Work Phone: 03-24-2022 10:52-0400 Body mass index (BMI) [Ratio] 27.91 kg/m2 Justice Samuels Work Phone: [facility] Work Phone: 03-24-2022 10:52-0400 Body surface area Derived from formula 1.81 m2 Justice Samuels Work Phone: [employer] [facility] Work Phone: 03-24-2022 10:52-0400 Body weight 74.9 kg Justice Samuels Work Phone: [facility] [facility] Work Phone: 03-24-2022 10:52-0400 Diastolic blood pressure 76 mm[Hg] Justice Samuels Work Phone: [facility] [facility] Work Phone: 03-24-2022 10:52-0400 Heart rate 80 /min Justice Samuels Work Phone: [facility] [facility] Work Phone: 03-24-2022 10:52-0400 SaO2% (BldA) [Mass fraction] 100 % Justice Samuels Work Phone: [facility] Work Phone: 03-24-2022 10:52-0400 Systolic blood pressure 138 mm[Hg] Justice Samuels Work Phone: [facility] Work Phone: 03-14-2022 13:36-0400 Body height 162.6 cm Roger Valdez MD Work Phone: [facility] 03-14-2022 13:36-0400 Body mass index (BMI) [Ratio] 28.36 kg/m2 Roger Valdez MD Work Phone: [facility] 03-14-2022 13:36-0400 Body weight 74.93 kg Roger Valdez MD Work Phone: [facility] 03-14-2022 13:36-0400 Diastolic blood pressure 96 mm[Hg] Roger Valdez MD Work Phone: [facility] 03-14-2022 13:36-0400 Heart rate 81 /min Roger Valdez MD Work Phone: [facility] 03-14-2022 13:36-0400 SaO2% (BldA) [Mass fraction] 96 % Roger Valdez MD Work Phone: [facility] 03-14-2022 13:36-0400 Systolic blood pressure 171 mm[Hg] Roger Valdez MD Work Phone: [facility] 03-03-2022 16:11-0400 Diastolic blood pressure 102 mm[Hg] [facility] Work Phone: 03-03-2022 16:11-0400 Heart rate 841 /min [facility] Work Phone: 03-03-2022 16:11-0400 Respiratory rate 16 /min [facility] Work Phone: 03-03-2022 16:11-0400 SaO2% (BldA) [Mass fraction] 99 % [facility] Work Phone: 03-03-2022 16:11-0400 Systolic blood pressure 188 mm[Hg] [facility] Work Phone: 03-03-2022 13:15-0400 Body height 162.56 cm [facility] Work Phone: 03-03-2022 13:15-0400 Body mass index (BMI) [Ratio] 27.4 kg/m2 [facility] Work Phone: 03-03-2022 13:15-0400 Body temperature 99.3 [degF] [facility] Work Phone: 03-03-2022 13:15-0400 Body weight 72.57 kg [facility] Work Phone: 03-02-2022 15:58-0400 Body height 163.83 cm Justice Samuels Work Phone: [employer] [facility] Work Phone: 03-02-2022 15:58-0400 Body mass index (BMI) [Ratio] 28.39 kg/m2 Justice Samuels Work Phone: [employer] [facility] Work Phone: 03-02-2022 15:58-0400 Body surface area Derived from formula 1.83 m2 Justice Samuels Work Phone: [employer] [facility] Work Phone: 03-02-2022 15:58-0400 Body weight 76.2 kg Justice Samuels Work Phone: [employer] [facility] Work Phone: 03-02-2022 15:58-0400 Diastolic blood pressure 80 mm[Hg] Justice Samuels Work Phone: [employer] [facility] Work Phone: 03-02-2022 15:58-0400 Heart rate 108 /min Justice Samuels Work Phone: [facility] Work Phone: 03-02-2022 15:58-0400 SaO2% (BldA) [Mass fraction] 97 % Justice Samuels Work Phone: [facility] Work Phone: 03-02-2022 15:58-0400 Systolic blood pressure 148 mm[Hg] Justice Samuels Work Phone: [facility] Work Phone: 02-24-2022 11:02-0400 Body height 163.83 cm Justice Samuels Work Phone: [facility] Work Phone: 02-24-2022 11:02-0400 Body mass index (BMI) [Ratio] 28.39 kg/m2 Justice Samuels Work Phone: [facility] Work Phone: 02-24-2022 11:02-0400 Body surface area Derived from formula 1.83 m2 Justice Samuels Work Phone: [facility] Work Phone: 02-24-2022 11:02-0400 Body weight 76.2 kg Justice Samuels Work Phone: [facility] Work Phone: 02-24-2022 11:02-0400 Diastolic blood pressure 68 mm[Hg] Justice Samuels Work Phone: [facility] Work Phone: 02-24-2022 11:02-0400 Heart rate 77 /min Justice Samuels Work Phone: [facility] Work Phone: 02-24-2022 11:02-0400 SaO2% (BldA) [Mass fraction] 96 % Justice Samuels Work Phone: [facility] Work Phone: 02-24-2022 11:02-0400 Systolic blood pressure 132 mm[Hg] Justice Samuels Work Phone: [facility] Work Phone: 02-18-2022 15:27-0400 Body temperature 98.4 [degF] [facility] Work Phone: 02-18-2022 15:27-0400 Diastolic blood pressure 78 mm[Hg] [facility] Work Phone: 02-18-2022 15:27-0400 Heart rate 78 /min [facility] Work Phone: 02-18-2022 15:27-0400 Respiratory rate 16 /min [facility] Work Phone: 02-18-2022 15:27-0400 SaO2% (BldA) [Mass fraction] 98 % [facility] Work Phone: 02-18-2022 15:27-0400 Systolic blood pressure 148 mm[Hg] [facility] Work Phone: 02-18-2022 12:32-0400 Body height 162.56 cm [facility] Work Phone: 02-18-2022 12:32-0400 Body mass index (BMI) [Ratio] 29 kg/m2 [facility] Work Phone: 02-18-2022 12:32-0400 Body weight 76.6 kg [facility] Work Phone: 05-02-2017 08:19-0400 BMI (Body Mass Index) 29.42 kg/m2 Prudence Hedrick LPN [facility] Work Phone: 05-02-2017 08:19-0400 Body Temperature 97.9 [degF] Prudence Hedrick LPN [facility] Work Phone: 05-02-2017 08:19-0400 Body weight 77.75 kg Prudence Hedrick LPN [facility] Work Phone: 05-02-2017 08:19-0400 BP Diastolic 82 mm[Hg] Prudence Hedrick LPN [facility] Work Phone: 05-02-2017 08:19-0400 BP Systolic 152 mm[Hg] Prudence Hedrick LPN [facility] Work Phone: 05-02-2017 08:19-0400 Height 162.56 cm Prudence Hedrick LPN [facility] Work Phone: 05-02-2017 08:19-0400 Pulse (Heart Rate) 79 /min Prudence Hedrick LPN [facility] Work Phone: 05-02-2017 08:19-0400 Pulse Oximetry 98 % Prudence Hedrick LPN [facility] Work Phone: 05-02-2017 08:19-0400 Respiratory Rate 14 /min Prudence Hedrick LPN [facility] Work Phone: 05-02-2017 08:19-0400 Weight 77.75 kg Prudence Hedrick LPN [facility] Work Phone: 02-04-2011 17:19-0500 Body Temperature 98.4 [degF] Prudence Hedrick LPN [facility] Work Phone: 02-04-2011 17:19-0500 BP Diastolic 89 mm[Hg] Prudence Hedrick LPN [facility] Work Phone: 02-04-2011 17:19-0500 BP Systolic 124 mm[Hg] Prudence Hedrick LPN [facility] Work Phone: 02-04-2011 17:19-0500 Pulse (Heart Rate) 81 /min Prudence Hedrick LPN [facility] Work Phone: 02-04-2011 17:19-0500 Pulse Oximetry 99 % Prudence Hedrick LPN [facility] Work Phone: 03-21-2010 14:25-0400 Body weight 68.49 kg Prudence Hedrick LPN [facility] Work Phone: 03-21-2010 14:25-0400 Height 162.56 cm Prudence Hedrick LPN [facility] Work Phone: 03-21-2010 14:25-0400 Respiratory Rate 16 /min Prudence Hedrick LPN [facility] Work Phone: Encounters Encounter Date Encounter Type Care Provider Facility Start: 06-30-2025 ambulatory Zane Meyers Facility:[facility] Start: 06-16-2025 End: 06-16-[address] Justice Samuels MD Work Phone: [facility] Start: 06-16-2025 End: 06-16-2025 Patient encounter procedure Anais Liu -[facility] Work Phone: Start: 06-04-2025 Encounter for preprocedural cardiovascular examination [facility] Start: 06-03-2025 End: 06-03-[address] Zane Meyers MD [facility] Work Phone: Start: 06-03-2025 End: 06-03-[address] Zane Meyers MD [facility] Start: 06-03-2025 End: 06-03-[address] Justice Samuels MD Work Phone: [facility] Start: 06-03-[address] Maylin Samuels MD Work Phone: [facility] Start: 06-02-2025 Encounter for preprocedural laboratory examination Galen Jakob [facility] Start: 05-25-2025 End: 05-25-2025 Non-patient / Non-visit Dr. Zane Meyers [facility] -[facility] Work Phone: Start: 05-25-2025 End: 05-25-[address] Justice Samuels MD Work Phone: -Pulmonary Services/Neurology Start: 05-25-2025 End: 05-25-[address] Galen Robert MD -Pulmonary Services/Neurology Work Phone: Start: 05-25-2025 End: 05-25-2025 [facility] Start: 05-04-2025 End: 05-04-2025 ambulatory [facility] Start: 05-04-2025 End: 05-04-2025 Office outpatient visit 25 minutes Justice Samuels MD Work Phone: [facility] Comment on above: Mild persistent asth ma with acute exacerbation (HHS-HCC) (Primary Dx); Primary hypertension; Mixed hyperlipidemia; Coronary artery disease involving [place] heart, unspecified vessel or lesion type, unspecified whether angina present; ETD (Eustachian tube dysfunction), left Start: 04-25-2025 End: 04-25-2025 Emergency department patient visit JUSTICE [facility] Start: 03-12-2025 End: 03-12-2025 Office outpatient visit 15 minutes Francis Franks APRN.POWER ENGINEER Work Phone: [facility] Comment on above: Eustachian tube dysf unction, bilateral (Primary Dx) Start: 03-12-2025 End: 03-12-2025 ambulatory [facility] Facility:[facility] Start: 03-06-2025 End: 03-06-2025 ambulatory [facility] Facility:[facility] Start: 03-06-2025 End: 03-06-2025 Patient encounter procedure Ludwin Rodriguez APRN.POWER ENGINEER Work Phone: [facility] Comment on above: Impacted cerumen of left ear (Primary Dx); Acute non-recurrent maxillary sinusitis Start: 01-22-2025 End: 01-22-2025 ambulatory [facility] Start: 01-22-2025 End: 01-22-2025 Encounter for general adult medical examination without abnormal findings JUSTICE SAMUELS [facility] Ambulatory Start: 01-22-2025 End: 01-22-2025 Patient encounter status Justice Samuels MD Work Phone: [facility] Work Phone: Start: 01-22-2025 End: 01-22-2025 Periodic preventive med est patient 40-64yrs Justice Samuels MD Work Phone: [facility] Comment on above: Routine general medi nadeem examination at a health care facility (Primary Dx) Start: 10-29-2024 End: 10-29-2024 ambulatory [facility] Start: 10-29-2024 End: 10-29-2024 ambulatory Justice [facility] Facility:[facility] Start: 10-14-2024 End: 10-14-2024 ambulatory [facility] Start: 10-06-2024 End: 10-06-2024 ambulatory Regis DEXTER Facility:[facility] Start: 10-06-2024 End: 10-06-2024 ambulatory [facility] Facility:[facility] Start: 05-14-2023 End: 05-14-2023 Subsequent hospital visit by physician Giovanny Bertrand [facility] Work Phone: Radiology Comment on above: Acute cough [R05.1] Start: 05-14-2023 End: 05-14-2023 Patient encounter procedure Jessi Oglesby APRN.CNP Work Phone: [facility] Comment on above: Rib pain on right si de (Primary Dx); Dyspnea, unspecified type Start: 05-14-2023 Telephone encounter Jessi Oglesby APRN.CNP Work Phone: [facility] Comment on above: Results Start: 11-03-2022 Office outpatient vi sit 25 minutes Justice Samuels Work Phone: [facility] Work Phone: Start: 11-03-2022 ambulatory Justice ravi [facility] Facility:[id number] Start: 10-28-2022 End: 10-29-2022 Emergency department patient visit Nuris Vega [facility] Emergency 07 Start: 10-05-2022 ambulatory Yordy López Sammie [facility] acility:[id number] Start: 10-05-2022 ambulatory Justice Jauregui [facility]onna [facility] Facility:[id number] Start: 10-05-2022 Office outpatient vi sit 15 minutes Justice T [facility] Work Phone: [facility] Work Phone: Start: 09-25-2022 Chart Update Justice T Furn ess Work Phone: [facility] Work Phone: Start: 09-22-2022 ambulatory Yordy López [facility] acility:[id number] Start: 09-22-2022 ambulatory Justice Juventino breonna [facility] Facility:[id number] Start: 09-22-2022 Office outpatient vi sit 25 minutes Justice T [facility] Work Phone: [facility] [facility] Work Phone: Start: 05-25-2022 End: 05-25-2022 ambulatory ROGER VALDEZ [facility] Ambulatory Start: 05-25-2022 End: 05-25-2022 Office outpatient visit 10 minutes Roger Valdez MD Work Phone: [facility] Comment on above: Scalp mass (Primary Dx) Start: 04-04-2022 End: 04-04-2022 Emergency department patient visit Dr. Justice Samuels Facility:[id number] Start: 03-24-2022 ambulatory Justice ravi [facility] Facility:[id number] Start: 03-24-2022 Office outpatient vi sit 25 minutes Justice T Furness Work Phone: [facility] Work Phone: Start: 03-18-2022 Transcribe Orders Justice Jeffers rness Work Phone: Laboratory Medicine Comment on above: Anemia, unspecified type (Primary Dx); Periumbilical abdominal pain; Fatigue, unspecified type Start: 03-14-2022 End: 03-14-2022 ambulatory JUSTICE SAMUELS [facility] Ambulatory Start: 03-14-2022 End: 03-14-2022 Office outpatient new 30 minutes Justice Samuels MD Work Phone: [facility] Comment on above: Scalp mass (Primary Dx); 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; Coronary artery disease, unspecified vessel or lesion type, unspecified whether angina present, unspecified whether [place] or transplanted heart; Anemia, unspecified type; Primary hypertension Start: 03-08-2022 Transcribe Orders Justice Samuels MD Work Phone: [facility] Comment on above: Scalp cyst (Primary Dx) Start: 03-03-2022 End: 03-03-2022 Emergency department patient visit [facility] Start: 03-02-2022 Office outpatient vi sit 15 minutes Justice Samuels Work Phone: [facility] Work Phone: Start: 03-02-2022 ambulatory Justice Samuels Facility:[id number] Start: 02-27-2022 AUDIT Justice mills Work Phone: [employer] Work Phone: Start: 02-24-2022 ambulatory Justice Samuels Facility:[id number] Start: 02-24-2022 Office outpatient ne w 45 minutes Justiceisabel Samuels Work Phone: [employer] Work Phone: Start: 02-18-2022 End: 02-18-2022 Emergency department patient visit [facility]Emergency [facility] Start: 03-06-2019 End: 03-07-2019 Patient encounter procedure RICH AWAD Facility:B Start: 01-10-2019 End: 01-11-2019 Patient encounter procedure ELO DOBSON Facility:B Start: 10-25-2017 End: 10-26-2017 Emergency department patient visit ROEGR ZAHIRA Facility:[facility] Procedures Date Procedure Procedure Detail Performing Clinician Start: 01-22-2025 Lipid 1996 panel - S karissa or Plasma Ludwin Rodriguez SANDER SETTER.POWER ENGINEER Work Phone: Start: 05-14-2023 Radiologic exam ches t 2 views Jessi Oglesby APRN.POWER ENGINEER Work Phone: Start: 01-20-2023 Lipid 1996 panel - S karissa or Plasma Xr Lynn Work Phone: Start: 03-03-2022 CT of head without contrast Start: 02-18-2022 End: 02-18-2022 Measurement of occult blood in stool specimen using immunoassay Start: 02-18-2022 CT of abdomen and pe lvis without contrast Start: 05-05-2019 Adult depression scr eening assessment Justice Abril Work Phone: Start: 01-10-2019 Mammography Justice Jeffers [facility]ina Work Phone: Start: 05-02-2017 End: 05-02-2017 Documentation of current medications Prudence Hedrick LPN Start: 03-21-2010 End: 03-21-2010 Documentation of current medications Prudence Hedrick LPN Cardiac catheterization Patr icrosario Monge Abril Work Phone: Partial hysterectomy Justice [facility] Work Phone: Plan of Treatment Date Care Activity Detail Author Start: 2039 RSV Vaccine (1 - 1-d ose 75+ series) RSV Vaccine (1 - 1-dose 75+ series) [facility] Start: 01-22-2030 Lipid panel [facility] Start: 01-22-2028 Diabetes Screening Diabetes Screenin g [facility] Start: 01-20-2028 Lipid panel Lipid Screening [facility] Start: 01-20-2028 LIPID SCREEN LIPID SCREEN [facility] Start: 04-25-2027 DTaP/Tdap/Td Vaccine s (2 - Td or Tdap) DTaP/Tdap/Td Vaccines (2 - Td or Tdap) [facility] Start: 04-25-2027 Tetanus vaccination Tetanus: Every 1 0yrs [facility] Start: 04-25-2027 Urine microalbumin profile DTaP,Tdap,Td Vaccine (2 - Td or Tdap) [facility] Start: 01-27-2027 LIPID SCREEN LIPID SCREEN [facility] Start: 01-23-2026 Yearly Adult Physical Yearly Adult P hysical [facility] Start: 01-22-2026 Creatinine measurement Creatinine Le johnnie [facility] Start: 01-22-2026 Hepatitis B surface antibody level LDL Cholesterol [facility] Start: 01-22-2026 Potassium measurement Potassium Jane l [facility] Start: 07-27-2025 Influenza vaccination Influenz a Vaccine (Season Ended) [facility] Start: 07-23-2025 End: 07-23-2025 Patient encounter procedure 07/23/2025 10:40 AM EDT Office Visit [place] [address] [address] Justice Samuels MD [address] [address] [facility] Start: 06-16-2025 Evaluation of diagno stic study results [facility] Start: 06-16-2025 [facility] Start: 06-03-2025 Evaluation of diagno stic study results [facility] Start: 03-18-2025 DIABETES SCREEN DIABETES SCREEN [facility] Start: 03-18-2025 [facility] Start: 01-27-2025 DIABETES SCREEN DIABETES SCREEN [facility] Start: 01-22-2025 End: 01-22-2026 CBC panel - Blood by Automated count CBC Lab Routine Routine general medical examination at a health care facility Expected: 01/22/2025 (Approximate), Expires: 01/22/2026 [facility] Service Area Work Phone: Comment on above: Expected: 01/22/2025 (Approximate), Expires: 01/22/2026 Start: 01-22-2025 End: 01-22-2026 Comprehensive metabolic 2000 panel - Serum or Plasma Comprehensive Metabolic Panel Lab Routine Routine general medical examination at a health care facility Expected: 01/22/2025 (Approximate), Expires: 01/22/2026 [facility] Work Phone: Comment on above: Expected: 01/22/2025 (Approximate), Expires: 01/22/2026 Start: 01-22-2025 End: 01-22-2026 Lipid 1996 panel - Serum or Plasma Lipid Panel Lab Routine Routine general medical examination at a health care facility Expected: 01/22/2025 (Approximate), Expires: 01/22/2026 [facility] Work Phone: Comment on above: Expected: 01/22/2025 (Approximate), Expires: 01/22/2026 Start: 01-22-2025 End: 01-22-2026 Magnesium [Mass/volume] in Serum or Plasma Magnesium Lab Routine Routine general medical examination at a health care facility Expected: 01/22/2025 (Approximate), Expires: 01/22/2026 [facility] Work Phone: Comment on above: Expected: 01/22/2025 (Approximate), Expires: 01/22/2026 Start: 01-22-2025 End: 01-22-2026 Thyrotropin [Units/volume] in Serum or Plasma Thyroid Stimulating Hormone Lab Routine Routine general medical examination at a health care facility Expected: 01/22/2025 (Approximate), Expires: 01/22/2026 [facility] Work Phone: Comment on above: Expected: 01/22/2025 (Approximate), Expires: 01/22/2026 Start: 07-27-2024 COVID-19 Vaccine ( season) COVID-19 Vaccine ( season) [facility] Start: 07-27-2024 Covid-19 Vaccine ( season) Covid-19 Vaccine ( season) [facility] Start: 07-27-2024 Covid-19 Vaccine ( season) Covid-19 Vaccine ( season) [facility] Start: 07-27-2024 Influenza vaccination Influenza Vacc ine (#1) [facility] Start: 2024 RSV High Risk: (Elde rly (60+) or Population) (1 - Risk 60-74 years 1-dose series) RSV High Risk: (Elderly (60+) or Population) (1 - Risk 60-74 years 1-dose series) [facility] Start: 2024 RSV Vaccine (1 - 1-d ose 60+ series) RSV Vaccine (1 - 1-dose 60+ series) [facility] Start: 07-27-2023 Influenza vaccination INFLUENZ A (Season Ended) [facility] Start: 01-27-2023 Hepatitis B surface antibody level LDL CHOLESTEROL [facility] Start: 11-26-2022 DEPRESSION ASSESSMENT DEPRESSION ASS ESSMENT [facility] Start: 10-05-2022 EPV, Provider: Justice Samuels, Status: Pen, Time: 2:40 PM EPV, Provider: Justice Samuels, Status: Pen, Time: 2:40 PM [facility] [facility] Work Phone: Start: 09-22-2022 EPV, Provider: Yordy Cochran, Status: Pen, Time: 10:40 AM EPV, Provider: Yordy Cochran, Status: Pen, Time: 10:40 AM [facility] Work Phone: Start: 09-14-2022 End: 09-14-2022 Patient encounter procedure 09/14/2022 Office Visit General Surgery Roger Valdez MD [address] [place] [address] [facility] [facility] Start: 03-30-2022 End: 03-30-2022 Patient encounter procedure 03/30/2022 Procedure visit General Surgery Roger Valdez MD [address] [place] [address] [facility] Start: 03-24-2022 EPV, Provider: Justice Samuels, Status: Pen, Time: 10:40 AM EPV, Provider: Justice Samuels, Status: Pen, Time: 10:[address] [facility] Work Phone: Start: 03-18-2022 End: 05-18-2022 CBC panel - Blood by Automated count [facility] Work Phone: Comment on above: Expected: 03/18/2022 , Expires: 05/18/2022 Start: 03-18-2022 End: 05-18-2022 Comprehensive metabolic 2000 panel - Serum or Plasma [facility] Work Phone: Comment on above: Expected: 03/18/2022 , Expires: 05/18/2022 Start: 03-18-2022 End: 05-18-2022 FERRITIN BLD [facility] Work Phone: Comment on above: Expected: 03/18/2022 , Expires: 05/18/2022 Start: 03-18-2022 End: 05-18-2022 IRON + TIBC [facility] Work Phone: Comment on above: Expected: 03/18/2022 , Expires: 05/18/2022 Start: 03-18-2022 End: 05-18-2022 Lipase [Enzymatic activity/volume] in Serum or Plasma [facility] Work Phone: Comment on above: Expected: 03/18/2022 , Expires: 05/18/2022 Start: 03-18-2022 End: 05-18-2022 Thyrotropin [Units/volume] in Serum or Plasma [facility] Work Phone: Comment on above: Expected: 03/18/2022 , Expires: 05/18/2022 Start: 06-10-2021 COVID-19 VACCINE (2 - Pfizer series) COVID-19 VACCINE (2 - Pfizer series) [facility] Start: 05-06-2021 COVID-19 Vaccine (2 - Pfizer 3-dose series) COVID-19 Vaccine (2 - Pfizer 3-dose series) [facility] Start: 05-06-2021 COVID-19 Vaccine (2 - Pfizer series) COVID-19 Vaccine (2 - Pfizer series) [facility] Start: 05-05-2020 Adult depression screening assessment DEPRESSION SCREENING [facility] Start: 05-05-2020 ANNUAL PCP TEAM GUM MACHINE OPERATOR CONNOR DISEASE VISIT ANNUAL PCP TEAM CHRONIC DISEASE VISIT [facility] Start: 01-10-2020 Mammography MAMMOGRAM [facility] Start: 01-10-2020 Screening for malign ant neoplasm of breast Mammogram Screening [facility] Start: 03-09-2018 FECAL OCCULT BLOOD FECAL OCCULT BLOO D [facility] Start: 03-09-2018 Screening for malign ant neoplasm of colon Fecal Occult Blood [facility] Start: 05-02-2017 End: 05-02-2017 Appointment Appointment [facility] Work Phone: Start: 03-10-2017 COLORECTAL CANCER SCREENING COLORECTAL CANCER SCREENING [facility] Start: 03-10-2017 Screening for malign ant neoplasm of colon Colorectal Cancer Screening [facility] Start: 05-08-2014 Pneumococcal vaccination Pneum ococcal Vaccine (2 of 2 - PCV) [facility] Start: 05-08-2014 Pneumococcal Vaccine : 50+ (2 of 2 - PCV) Pneumococcal Vaccine: 50+ (2 of 2 - PCV) [facility] Start: 05-08-2014 Pneumococcal Vaccine : Ped or At-Risk (2 - PCV) Pneumococcal Vaccine: Ped or At-Risk (2 - PCV) [facility] Start: 2014 Administration of he rpes zoster vaccine Zoster Vaccines (1 of 2) [facility] Start: 2014 Screening for malign ant neoplasm of colon [facility] Start: 2014 SHINGRIX VACCINE (1 of 2) [place] GRIX VACCINE (1 of 2) [facility] Start: 2009 COLOGUARD (FIT-DNA) COLOGUARD (FIT-D NA) [facility] Start: 2009 Colonoscopy COLONOSCOPY [facility] Start: [address] COLONOGRAPHY [facility] Start: 2009 Screening for malign ant neoplasm of colon [facility] Start: 2009 SIGMOIDOSCOPY SIGMOIDOSCOPY [facility] Start: 2004 Screening for malign ant neoplasm of breast Mammogram [facility] Start: 1994 HPV TESTING HPV TESTING [facility] Start: 1985 PAP TESTING PAP TESTING [facility] Start: 1985 Screening for malign ant neoplasm of cervix Cervical Cancer Screening [facility] Start: 1983 Urine microalbumin profile DTAP,TDAP,TD (1 - Tdap) [facility] Start: 1982 Annual PCP Team Residential Case Manager connor Disease Visit Annual PCP Team Chronic Disease Visit [facility] Start: 1982 Anxiety Screening Anxiety Screening [facility] Start: 1982 BP CONTROLLED (<130/80) BP CONTROLLE D (<130/80) [facility] Start: 1982 Depression Screening Depression Scre dot [facility] Start: 1982 Diabetes mellitus screening Diabetes Screening [facility] Start: 1982 Hepatitis C screening Hepatitis C Sc marquita [facility] Start: 1982 HIV SCREENING [facility]CRE[facility]ING [facility] Start: 1982 HIV [facility] Start: 1979 HIV screening HIV Screening [facility] Start: 1976 Depression screening using PHQ-9 (Patient Health Questionnaire 9) score Depression Screening (PHQ-2/9) [facility] Start: 1967 History and physical examination, annual for health maintenance Wellness Visit [facility] Start: 1964 Echocardiography Echocardiogram [facility] Start: 1964 HEPATITIS B (1 of 3 - 3-dose series) HEPATITIS B (1 of 3 - 3-dose series) [facility] Start: 1964 HIV screening HIV Screening [facility] Start: 1964 Lipid panel Lipid Panel [facility] Start: 1964 Screening for malign ant neoplasm of cervix Pap Smear [facility] Start: 1964 Screening for malign ant neoplasm of colon [facility] Start: 1964 Yearly Adult Physical Yearly Adult P [facility] Alternaria alternata [facility] Venezuelan house dust mite IgE Ab [Units/volume] in Serum [facility] Bermuda grass IgE Ab [Units/volume] in Serum [facility] Cat dander IgE Ab [Units/volume] in Serum [facility] Common Ragweed IgE A b [Units/volume] in Serum [facility] Dog epithelium IgE A b [Units/volume] in Serum [facility] Erythrocyte mean corpuscular volume determination [facility] house dust mite IgE Ab [Units/volume] in Serum [facility] Hematocrit [Volume Fraction] of Blood [facility] Hemoglobin [Mass/vol ume] in Blood [facility] [place] blue grass IgE Ab [Units/volume] in Serum [facility] Leukocytes [#/volume ] in Blood [facility] Mean corpuscular hemoglobin concentration determination [facility] Mean corpuscular hemoglobin determination [facility] Mouse urine proteins [facility] Neutrophil count [facility] Neutrophil percent differential count [facility] Patient Education [facility] Work Phone: Patient referral [facility] Work Phone: Plantain (Grenadian) [facility] Platelets [#/volume] in Blood [facility] Red blood cell count [facility] Red cell distributio n width determination [facility] White [place]m IgE Ab [Units/volume] in Serum [facility] Calion IgE Ab [Units/volume] in Serum [facility] Work Phone: Immunizations Immunization Date Immunization Notes Care Provider Zenon perry 09-15-2024 zoster vaccine recombinant Justice Samuels MD Work Phone: [facility] 04-30-2024 zoster vaccine recombinant Justice Samuels MD Work Phone: [facility] Work Phone: 09-20-2021 influenza, injectabl e, quadrivalent, preservative free Justice T Furness Work Phone: [facility] Work Phone: 09-20-2021 influenza virus vacc ine, unspecified formulation Xr [place] Work Phone: [facility] 04-15-2021 Pfizer-BioNTech COVI D-19 Vacc 30 MCG/0.3ML Intramuscular Suspension Justice T Furness Work Phone: [facility] Work Phone: 09-03-2020 influenza, injectabl e, quadrivalent, preservative free Justice T Furness Work Phone: [facility] Work Phone: 09-19-2019 influenza, injectabl e, quadrivalent, preservative free Justice T Furness Work Phone: [facility] Work Phone: 01-03-2019 influenza, injectabl e, quadrivalent, contains preservative Justice T Furness Work Phone: [facility] Work Phone: 04-25-2017 tetanus toxoid, redu eliane diphtheria toxoid, and acellular pertussis vaccine, adsorbed [facility] Work Phone: 09-08-2016 influenza, injectabl e, quadrivalent, preservative free Justice T Furness Work Phone: [facility] Work Phone: 10-13-2015 influenza, injectabl e, quadrivalent, preservative free Justice T Furness Work Phone: [facility] Work Phone: 09-27-2015 influenza virus vacc ine, unspecified formulation Justice T Furness Work Phone: [facility] Work Phone: 05-06-2014 measles, mumps and rubella virus vaccine Justice T Furness Work Phone: [facility] Work Phone: 07-27-2013 influenza, seasonal, injectable Justice T Furness Work Phone: [facility] Work Phone: 05-08-2013 pneumococcal polysaccharide vaccine, 23 valent Roger Valdez MD Work Phone: [facility] 04-26-2013 pneumococcal polysaccharide vaccine, 23 valent Justice T Furness Work Phone: [facility] Payers Date Payer Category Payer [employer] [facility] Care [facility] [id number] 2024 Blue Cross Blue Shield BLUE CARD PPO OOS [id number] 2024 Unknown [id number] 2024 Self-pay [id number] 2024 Unknown [id number] 2024 Unknown [id number] 2021 Unknown [id number] 2019 Unknown 2019 Unknown ANTHEM BLUE ACCE SS PPO [id number] 2019-Present [phone] [address] [place] [address] PPO [id number] 2017 Unknown [id number] 1964 Unknown [id number] 2.0.1.496120.3.579.2. 627 1964 Unknown [id number] 2.0.1.309101.3.579.2. 627 1964 Unknown [id number] 2.16.840.1.579047.3.579.2. 903 1964 Unknown [id number] 2.16.840.1.696966.3.579.2. 903 1964 Unknown [id number] 2.16.840.1.363653.3.579.2. 356 1964 Unknown [id number] 2.16.840.1.692856.3.579.2. 356 1964 Unknown [id number] 2.16.840.1.779342.3.579.2. 356 1964 Unknown [id number] 2.16840.1.902261.3.579.2. 356 1964 Unknown [id number] 2.16840.1.056330.3.579.2. 356 1964 Unknown [id number] 2.840.1.311124.3.579.2. 356 1964 Unknown [id number] 2.16840.1.486197.3.579.2. 1069 1964 Unknown [id number] 2.16840.1.123208.3.579.2. 9 1964 Unknown [id number] 2.16840.1.336388.3.579.2. 9 1964 Unknown [id number] 2.16840.1.194329.3.579.2. 1069 1964 Unknown [id number] 2.16840.1.615805.3.579.2. 902 1964 Unknown [id number] 2.16840.1.342897.3.579.2. 1244 1964 Unknown [id number] 2.16840.1.044250.3.579.2. 1244 Self-pay [id number] Unknown [id number] Unknown [id number] 2.16.840.1.658329.3.579.2. 462 Unknown [id number] 2.16.840.1.744866.3.579.2. 462 Unknown [id number] 2.16.840.1.842925.3.579.2. 462 Unknown [id number] 2.16.840.1.883640.3.579.2. 462 Unknown [id number] 2.16.840.1.847237.3.579.2. 462 Unknown [id number] 2.16.840.1.213863.3.579.2. 462 Unknown [id number] 2.16.840.1.753505.3.579.2. 462 Unknown [id number] 2.16.840.1.486913.3.579.2. 462 Unknown [id number] 2.16.840.1.115849.3.579.2. 462 Unknown [id number] 2.16840.1.608477.3.579.2. 462 Social History Date Type Detail Facility Start: 02-18-2022 End: 03-03-2022 Tobacco smoking status NHIS Unknown if ever smoked [facility] Start: 08-22-2019 Non-smoker [facility] Start: 1965 Sex Assigned At Female W [facility] Start: 03-14-2022 End: 05-04-2025 Non-smoker Non-smoker [facility] Start: 1965 Sex Assigned At Not on file O [facility] Start: 03-14-2022 End: 05-05-2022 Tobacco smoking status NHIS Never smoked tobacco [facility] Start: 03-14-2022 End: 01-22-2025 Tobacco use and exposure Smokeless tobacco non-user [facility] Start: 03-14-2022 End: 05-25-2022 Alcohol intake Ex-drinker (finding) [facility] Start: 03-04-2022 End: 05-04-2025 Exposure to SARS-CoV-2 (event) Not sure [facility] Start: 06-16-2019 End: 03-12-2025 Alcohol intake Current drinker of alcohol (finding) [facility] Start: 11-11-2015 History SDOH Alcohol Comment occasionally [facility] Start: 05-14-2023 End: 05-04-2025 Tobacco use panel [facility] Adult Depression Screening Assessment 0 [facility] Start: 01-22-2025 End: 05-04-2025 Alcoholic beverage intake Not Asked [facility] Work Phone: Start: 01-22-2025 Alcohol Comment occasional [facility] Work Phone: Functional Status Date Assessment Result Facility 05-04-2025 Patient Health Quest ionnaire 2 item (PHQ-2) [Reported] [facility] Work Phone: Mental Status Date Assessment Result Facility 03-03-2022 Cognitive function Level Of Cons ciousness Awake;Alert;Appropriate;Follow s Commands [facility] Work Phone: 02-18-2022 Cognitive function Voice/Name [facility] Work Phone: Clinical Notes 11-15-2015 to 06-03-2025 Note Date & Type Note Facility 06-03-2025 Evaluation note Diagnosis Onset Date Resolution Preop cardiovascular exam acute June 03, 2025 2:27pm Essential (primary) hypertension chronic June 03, 2025 2:27pm 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 female who presents for ER Follow-up (ER follow up- 04/25/25). HPI Persistent lung issues this year. Had intermittent asthma that seemed to become more persistent. Multiple illnesses over the last 5 to 6 months. Does use her rescue inhaler and gets some relief. Finished the Levaquin and has 1 day left of the steroids from the ER. Basic labs were okay chest x-ray was okay. Also some left eustachian tube dysfunction. It has been more persistent over the last few weeks. Went to [facility] for that. Also some questions about what she should be on long-term aspirin and Plavix. I do not have that she has had a stent. Singulair 10 mg daily Start Symbicort 2 puffs twice a day. She knows to swish and spit and swish and swallow after each use. Refer to pulmonology [place] Referred to cardiology [place] for follow-up for coronary artery disease. Persistent eustachian tube dysfunction, refer to Dr. Janak Parker Review of Systems Constitutional: Positive for fatigue. Negative for fever. Respiratory: Positive for cough, shortness of breath and wheezing. Cardiovascular: Negative for chest pain, palpitations and leg swelling. Gastrointestinal: Negative for diarrhea and nausea. Objective BP 156/88 Pulse 76 Ht 1.638 m (5' 4.5) Wt 79.7 kg (175 lb 12.8 oz) SpO2 98% BMI 29.71 kg/m Physical Exam Constitutional: Appearance: Normal appearance. HENT: Head: Normocephalic and atraumatic. Right Ear: Tympanic membrane, ear canal and external ear normal. Left Ear: Ear canal and external ear normal. Ears: Comments: Dullness to the left tympanic membrane Cardiovascular: Rate and Rhythm: Normal rate and regular rhythm. Heart sounds: Normal heart sounds. Pulmonary: Effort: Pulmonary effort is normal. Breath sounds: Rhonchi present. No wheezing or rales. Skin: General: Skin is warm and dry. Neurological: General: No focal deficit present. Mental Status: She is alert and oriented to person, place, and time. Psychiatric: Mood and Affect: Mood normal. Behavior: Behavior normal. Thought Content: Thought content normal. Judgment: Judgment normal. Assessment/Plan Problem List Items Addressed This Visit ICD-10-CM Primary hypertension I10 Relevant Orders Referral to Cardiology Mixed hyperlipidemia E78.2 Relevant Orders Referral to Cardiology CAD (coronary artery disease) I25.10 Relevant Orders Referral to Cardiology Mild persistent asthma with acute exacerbation ([facility]) - Primary J45.31 Relevant Medications budesonide-formoterol (Symbicort) 160-4.5 mcg/actuation inhaler montelukast (Singulair) 10 mg tablet Other Relevant Orders Referral to Pulmonology Other Visit Diagnoses Codes ETD (Eustachian tube dysfunction), left H69.92 Relevant Orders Referral to ENT documented in this [facility] Work Phone: 1(910) 527-800504-17-2025 NoteHNO ID: [id number] Author: FRANCIS FRANKS APRN.JOSE Service: ? Author Type: Nurse Practitioner Type: Progress Notes Filed: 03/12/2025 16:28 Note Text: [facility] Subjective Jolie Schwartz is a 59 year old female. Patient presents with: Pain: X 1 month total, trouble hearing, and hearing ocean HPI Nontoxic-appearing 59-year-old female presents urgent care chief complaint ear pressure. Duration of symptoms 1 month. Associated symptoms as above. Was seen by colleague last week. Placed on doxycycline for maxillary sinusitis impacted cerumen left ear. States symptoms have stayed persistent. OTC medications none. No hearing loss or otorrhea. No trauma. Denies any fevers. Overall feels well. Past medical history prescription medications allergies reviewed. Review of Systems Constitutional: Negative for chills, diaphoresis, fatigue and fever. HENT: Positive for ear pain. Negative for congestion, drooling, ear discharge, hearing loss, rhinorrhea, sinus pressure, sinus pain, sneezing, sore throat and trouble swallowing. Eyes: Negative for pain, discharge, redness, itching and visual disturbance. Respiratory: Negative for cough, chest tightness, shortness of breath and wheezing. Cardiovascular: Negative for chest pain. Gastrointestinal: Negative for abdominal distention, abdominal pain, blood in stool, constipation, diarrhea, nausea and vomiting. Genitourinary: Negative for difficulty urinating and dysuria. Musculoskeletal: Negative for arthralgias, joint swelling, neck pain and neck stiffness. Skin: Negative for rash. Neurological: Negative for dizziness, weakness, numbness and headaches. Objective BP 163/92 Pulse 65 Temp 36.2 ?C (97.2 ?F) Resp 18 Wt 79 kg (174 lb 2.6 oz) LMP 11/23/2008 SpO2 96% BMI 28.98 kg/m? Physical Exam Constitutional: Appearance: Normal appearance. HENT: Head: Normocephalic. Jaw: No trismus, tenderness, swelling or pain on movement. Right Ear: Tympanic membrane, ear canal and external ear normal. Left Ear: Tympanic membrane, ear canal and external ear normal. Ears: Comments: Clear fluid noted behind bilateral TMs. Nose: No congestion. Mouth/Throat: Mouth: Mucous membranes are moist. Pharynx: Oropharynx is clear. Uvula midline. No oropharyngeal exudate or posterior oropharyngeal erythema. Eyes: Conjunctiva/sclera: Conjunctivae normal. Cardiovascular: Rate and Rhythm: Normal rate. Pulmonary: Effort: Pulmonary effort is normal. Breath sounds: Normal breath sounds. No wheezing, rhonchi or rales. Abdominal: Palpations: Abdomen is soft. Tenderness: There is no abdominal tenderness. There is no guarding or rebound. Musculoskeletal: General: Normal range of motion. Cervical back: Normal range of motion and neck supple. No edema or erythema. No pain with movement. Normal range of motion. Lymphadenopathy: Cervical: No cervical adenopathy. Skin: General: Skin is warm. Findings: No rash. Neurological: General: No focal deficit present. Mental Status: She is alert and oriented to person, place, and time. Mental status is at baseline. {ASSESSMENT/PLAN: 1. Eustachian tube dysfunction, bilateral - ICD9: 381.81, ICD10: H69.93 Diagnosed with eustachian tube dysfunction. No evidence of bacterial infection. Patient was educated on supportive therapies. Patient will follow up with primary care provider PCP 7 to 10 days for reevaluation of patient was instructed to immediately proceed to emergency room for any new, worsening, or symptoms lasting longer than anticipated. The patient's clinical presentation is otherwise unremarkable at this time. Based on exam and clinical finding, the patient is stable for discharge. Plan of care was discussed with patient. Patient verbalizes understanding and agrees to plan of care. This note was generated using VODECLIC software. It may contain errors in wording, punctuation, or spelling. Francis Franks APRN.POWER ENGINEER [facility] History of Present illness Narrative* Francis Franks APRN.JOSE - 03/12/2025 4:11 PM EDT [facility] Subjective Jolie Schwartz is a 59 year old female. Patient presents with: Pain: X 1 month total, trouble hearing, and hearing ocean HPI Nontoxic-appearing 59-year-old female presents urgent care chief complaint ear pressure. Duration of symptoms 1 month. Associated symptoms as above. Was seen by colleague last week. Placed on doxycycline for maxillary sinusitis impacted cerumen left ear. States symptoms have stayed persistent. OTC medications none. No hearing loss or otorrhea. No trauma. Denies any fevers. Overall feels well. Past medical history prescription medications allergies reviewed. Review of Systems Constitutional: Negative for chills, diaphoresis, fatigue and fever. HENT: Positive for ear pain. Negative for congestion, drooling, ear discharge, hearing loss, rhinorrhea, sinus pressure, sinus pain, sneezing, sore throat and trouble swallowing. Eyes: Negative for pain, discharge, redness, itching and visual disturbance. Respiratory: Negative for cough, chest tightness, shortness of breath and wheezing. Cardiovascular: Negative for chest pain. Gastrointestinal: Negative for abdominal distention, abdominal pain, blood in stool, constipation, diarrhea, nausea and vomiting. Genitourinary: Negative for difficulty urinating and dysuria. Musculoskeletal: Negative for arthralgias, joint swelling, neck pain and neck stiffness. Skin: Negative for rash. Neurological: Negative for dizziness, weakness, numbness and headaches. Objective BP 163/92 Pulse 65 Temp 36.2 C (97.2 F) Resp 18 Wt 79 kg (174 lb 2.6 oz) LMP 11/23/2008 SpO2 96% BMI 28.98 kg/m Physical Exam Constitutional: Appearance: Normal appearance. HENT: Head: Normocephalic. Jaw: No trismus, tenderness, swelling or pain on movement. Right Ear: Tympanic membrane, ear canal and external ear normal. Left Ear: Tympanic membrane, ear canal and external ear normal. Ears: Comments: Clear fluid noted behind bilateral TMs. Nose: No congestion. Mouth/Throat: Mouth: Mucous membranes are moist. Pharynx: Oropharynx is clear. Uvula midline. No oropharyngeal exudate or posterior oropharyngeal erythema. Eyes: Conjunctiva/sclera: Conjunctivae normal. Cardiovascular: Rate and Rhythm: Normal rate. Pulmonary: Effort: Pulmonary effort is normal. Breath sounds: Normal breath sounds. No wheezing, rhonchi or rales. Abdominal: Palpations: Abdomen is soft. Tenderness: There is no abdominal tenderness. There is no guarding or rebound. Musculoskeletal: General: Normal range of motion. Cervical back: Normal range of motion and neck supple. No edema or erythema. No pain with movement.Normal range of motion. Lymphadenopathy: Cervical: No cervical adenopathy. Skin: General: Skin is warm. Findings: No rash. Neurological: General: No focal deficit present. Mental Status: She is alert and oriented to person, place, and time. Mental status is at baseline. {ASSESSMENT/PLAN: 1. Eustachian tube dysfunction, bilateral - ICD9: 381.81, ICD10: H69.93 Diagnosed with eustachian tube dysfunction. No evidence of bacterial infection. Patient was educated on supportive therapies. Patient will follow up with primary care provider PCP 7 to 10 days for reevaluation of patient was instructed to immediately proceed to emergency room for any new, worsening, or symptoms lasting longer than anticipated. The patient's clinical presentation is otherwise unremarkable at this time. Based on exam and clinical finding, the patient is stable for discharge. Planof care was discussed with patient. Patient verbalizes understanding and agrees to plan of care. This note was generated using VODECLIC software. It may contain errors in wording, punctuation, or spelli ng. Francis Franks APRN.CNP MDM Procedures documented in this encounterThe [facility]04-11-[facility]25 Instructions* Patient Instructions* Ludwin Rodriguez APRN.CNP - 03/06/2025 2:[address] [facility] PATIENT INFO ACUTE SINUSITIS OVERVIEW Rhinosinusitis, or more commonly sinusitis, is the medical term for inflammation (swelling) of the lining of the sinuses and nose. The sinuses are the hollow areas within the facial bones that are connected to the nasal openings. The sinuses are lined with mucous membranes, similar to the inside ofthe nose. There are two main types of sinusitis: acute and chronic. Acute sinusitis is inflammation that lasts for less than four weeks while chronic sinusitis lasts for more than 12 weeks. Acute sinusitis is common, affecting approximately one million people per year in the [place]. ACUTE SINUSITIS CAUSES The most common cause of acute sinusitis is a viral infection associated with the common cold. Bacterial sinusitis occurs much less commonly, in only 0.5 to 2 percent of cases, usually as a complication of viral sinusitis. Because antibiotics are effective only against bacterial, and not viral, infections, most people donot need antibiotics for acute sinusitis. ACUTE SINUSITIS SYMPTOMS Symptoms of acute sinusitis include: Nasal congestion or blockage Thick, yellow to green discharge from the nose Pain in the teeth Pain or pressure in the face that is worse when bending forwards Other acute sinusitis symptoms can include fever (temperature greater than 100.4 F or 38 C), fatigue, cough, difficulty or inability to smell, ear pressure or fullness, headache, and bad breath. In most cases, these symptoms develop over the course of one day and begin to improve within seven to 10 days. DO I NEED TO BE EXAMINED? It is difficult to know if you have a viral or bacterial sinus infection initially. However, most people with a viral infection improve without treatment within seven to 10 days after symptoms begin.Bacterial sinusitis also sometimes improves without treatment, although it can also worsen and require treatment. If one or more of the following bothersome symptoms last more than seven days, an examination by a healthcare provider is recommended: Thick, yellow to green discharge from the nose Face or tooth pain, especially if it is only on one side Tenderness over the maxillary sinuses (located on the left and right side of the nose, inside the cheekbones) Symptoms that initially improve and then worsen When to seek immediate help -- If you have one or more of the following symptoms, you should seek medical attention immediately (even if symptoms have been present for less than seven days): High fever (>102.5 F or 39.2 C) Sudden, severe pain in the face or head Double vision or difficulty seeing Confusion or difficulty thinking clearly Swelling or redness around one or both eyes Stiff neck, shortness of breath ACUTE SINUSITIS TREATMENT Initial treatment of a sinus infection aims to relieve symptoms since almost everyone will improve within the first seven to 10 days. Experts recommend avoiding antibiotics during this time unless there is clear evidence of a severe bacterial infection. Initial treatment Pain relief -- Non-prescription pain medications, such as acetaminophen (eg, Tylenol ) or ibuprofen(eg, Motrin , Advil ) are recommended for pain. Nasal irrigation and saline sprays -- Rinsing the nose with a salt-water (saline) solution is called nasal irrigation or nasal lavage. Saline is also available in a standard nasal spray, although this is not as effective as using larger amounts of water in an irrigation. Nasal irrigation is particularly useful for treating drainage down the back of the throat, sneezing, nasal dryness, and congestion. The treatment helps by rinsing out allergens and irritants from thenose. Saline rinses also clean the nasal lining and can be used before applying sprays containing medications, to get a better effect from the medication. Nasal lavage with warmed saline can be performed as needed, once per day, or twice daily for increased symptoms. Nasal lavage carries few risks when performed correctly. Saline nasal sprays and irrigation kits can be purchased [id number]. Saline mixes can also be purchased or patients can make their own solution. A variety of devices, including bulb syringes, Neti pots, and bottle sprayers, may be used to perform nasal lavage; instructions for nasal lavage are provided in the table. At least 200 mL (about 3/4cup) of fluid is recommended for each nostril. Nasal decongestants -- Nasal decongestant sprays, including oxymetazoline (Afrin ) and phenylephrine (Khris-synephrine ) can be used to temporarily treat congestion. However, these sprays should not beused for more than two to three days due to the risk of rebound congestion (when the nose is congested constantly unless the medication is used repeatedly). Other treatments -- Other treatments for congestion, such as oral antihistamines (such as diphenhydramine/Benadryl ) or zinc supplements are not proven to improve symptoms of sinusitis and can have unwanted side effects. Medications to thin secretions (such as guaifenesin) may help to clear mucus. Secondline treatment -- If symptoms have not improved in seven to ten days, you should arrange for medical evaluation. You may need further treatment. Nasal glucocorticoids -- Nasal glucocorticoids (steroids delivered by a nasal spray) can help to reduce swelling inside the nose, usually within two to three days. These drugs have few side effects and dramatically relieve symptoms in most people. There are a number of nasal glucocorticoids available by prescription. These drugs are all effective, but differ in how frequently they must be used and how much they cost. You may need to use a nasal decongestant for a few days before starting a nasal glucocorticoid to reduce nasal swelling; this will allow the nasal glucocorticoid to reach more areas of the nasal passages Do I need an antibiotic? -- If bothersome symptoms of sinusitis persist for 10 or more days, it is possible that you have bacterial sinusitis. The need for antibiotics depends upon the severity of your symptoms. Mild symptoms -- There are two possible treatment options if you have mild sinusitis symptoms: treat with antibiotics or continue to watch and wait for one week. Watching and waiting is a reasonable option because up to 75 percent of people with bacterial sinusitis improve within one month without antibiotics. During the watch and wait period, treatments to improve symptoms are recommended. If symptoms worsen or do not improve after watching and waiting, treatment with an antibiotic is usually recommended. Treatments to relieve symptoms are recommended while using antibiotics. Moderate or severe symptoms -- Most healthcare providers will prescribe an antibiotic for moderate to severe symptoms (temperature >38.3 C or 101 F and/or severe pain that interferes with usual activities). Treatments to relieve symptoms are also recommended during antibiotic treatment. One of the least expensive and most effective antibiotics for sinusitis is amoxicillin. An alternate antibiotic will be prescribed if you are allergic to penicillin. Regardless of which antibiotic isprescribed, it is important to follow the dosing instructions carefully and to finish the entire course of treatment. Taking the medication less often than prescribed or stopping the medication earlycan lead to complications, such as a recurrent infection. What if I do not improve with treatment? -- If you do not improve or worsen after a course of antibiotics, you should be re-examined. In some cases, symptoms of sinusitis improve but then recur. This is usually because the infection was not completely eliminated by the antibiotic. An alternate antibiotic, extended antibiotic treatment, and/or further testing may be recommended, depending upon your individual situation. documented in this encounterThe [facility]04-11-2025 NoteHNO ID: [id number] Author: PANCHO SAUCEDO MA Service: ? Author Type: Tie Inspector Type: Progress Notes Filed: 03/06/2025 14:53 Note Text: Ambulatory Ear Lavage Pre-treatment: Warm water Treatment: Left ear Equipment and Irrigation solution and Volume used: Single use syringe with single use irrigation tip Return flow appearance: Debris Patient tolerated procedure: yes Tympanic membrane assessment: Tympanic membrane assessed by LIP pre and post procedure Ludwin Rodriguez CNP [facility]04-11-2025 History of Present illness Narrative* Pancho Saucedo MA - 03/06/2025 1:56 PM EDT Ambulatory Ear Lavage Pre-treatment: Warm water Treatment: Left ear Equipment and Irrigation solution and Volume used: Single use syringe with single use irrigation tip Return flow appearance: Debris Patient tolerated procedure: yes Tympanic membrane assessment: Tympanic membrane assessed by LIP pre and post procedure Ludwin Rodriguez CNP * Ludwin Rodriguez APRN.JOSE - 03/06/2025 1:27 PM EDT [facility] Subjective Jolie Schwartz is a 59 year old female. Patient presents with: Cough: Chest congestion, headache, nasal congestion, SOB, wheeze, fatigue sweating x 3 weeks Ear Pain: Left ear pain x 1.5 weeks Cough Associated symptoms include ear pain and wheezing. Pertinent negatives include no chest pain and noshortness of breath. Ear Pain Associated symptoms include coughing. Pertinent negatives include no chest pain. Patient is a 59 year old female with a history of asthma, HTN, and heart disease present with cough, sinus congestion, and left year pain for last several weeks. She states in the last three weeks she has used 80 puff of her albuterol, she denies any chest pain or shortness of breath. She has no seen a nursery attendant in some time. She is most concerned about not being able to hear out of her left ear, she started using a sinus nasal spray that her sister suggested with no relief. Review of Systems HENT: Positive for ear pain and sinus pain. Respiratory: Positive for cough and wheezing. Negative for chest tightness and shortness of breath. Cardiovascular: Negative for chest pain, palpitations and leg swelling. Objective BP 184/93 Pulse 73 Temp 36.9 C (98.4 F) Resp 20 Wt 79 kg (174 lb 2.6 oz) LMP 11/23/2008 SpO2 98% BMI 28.98 kg/m Physical Exam Vitals reviewed. Constitutional: Appearance: Normal appearance. HENT: Right Ear: External ear normal. A middle ear effusion is present. Left Ear: External ear normal. There is impacted cerumen. Eyes: General: Lids are normal. Cardiovascular: Rate and Rhythm: Normal rate and regular rhythm. Heart sounds: Normal heart sounds, S1 normal and S2 normal. Pulmonary: Effort: Pulmonary effort is normal. Breath sounds: No decreased breath sounds, wheezing, rhonchi or rales. Lymphadenopathy: Cervical: No cervical adenopathy. Neurological: Mental Status: She is alert. {ASSESSMENT/PLAN: 1. Impacted cerumen of left ear - ICD9: 380.4, ICD10: H61.22 (primary diagnosis) Irrigated out today 2. Acute non-recurrent maxillary sinusitis - ICD9: 461.0, ICD10: J01.00 - Will begin treatment with Doxycycline - Supportive care with plenty of fluids, rest, and analgesia prn. - Follow up in 3-5 days if symptoms persist or worsen. Ludwin Rodriguez APRN.POWER ENGINEER History and Record Review External record(s) reviewed: prior outpatient record. Findings from review of outpatient records: pcp appointment verses pulmonology Differential Diagnoses - sinusitis is more likely for the following reason(s): suggested by H&P - asthma excerbation is less likely for the following reason(s): H&P not suggestive Additional Tests or Interventions The following medication(s) were considered but not ordered: steroids, no acute asthma exacerbation, heart disease and uncontrolled blood pressure Disposition The patient was discharged. OTC Medications were advised: Flonase/Nasacort Patient well is well-appearing nontoxic in no acute respiratory distress. She presents today with acute sinusitis and a cerumen impaction. Symptoms been consistent.. Ear canal was irrigated out todayin clinic without complications. Did discuss with her that with 3 weeks of symptoms she is on albuterol discussed that she is ever seen pulmonology or been on a maintenance medication such as Flovent. No concerns for asthma exacerbation or acute pneumonia today. Discussed need to follow-up with primary care versus pulmonology as she is not well- controlled asthma even when sick. She hasn't seen nursery attendant in some time. Blood pressure elevated, she is on lisinopril discussed if she is taking at home or at work and she hasn't been lately. Discussed blood pressure is not well- controlled today and did need to make a follow-up appointment with her primary care provider. Patient verbalized understanding and in agreement with plan. She was discharged home. documented in this encounterThe [facility]04-11-2025 NoteHNO ID: [id number] Author: LUDWIN RODRIGUEZ APRN.CNP Service: ? Author Type: Nurse Practitioner Type: Progress Notes Filed: 03/06/2025 14:53 Note Text: [facility] Subjective Jolie Schwartz is a 59 year old female. Patient presents with: Cough: Chest congestion, headache, nasal congestion, SOB, wheeze, fatigue sweating x 3 weeks Ear Pain: Left ear pain x 1.5 weeks Cough Associated symptoms include ear pain and wheezing. Pertinent negatives include no chest pain and no shortness of breath. Ear Pain Associated symptoms include coughing. Pertinent negatives include no chest pain. Patient is a 59 year old female with a history of asthma, HTN, and heart disease present with cough, sinus congestion, and left year pain for last several weeks. She states in the last three weeks she has used 80 puff of her albuterol, she denies any chest pain or shortness of breath. She has no seen a nursery attendant in some time. She is most concerned about not being able to hear out of her left ear, she started using a sinus nasal spray that her sister suggested with no relief. Review of Systems HENT: Positive for ear pain and sinus pain. Respiratory: Positive for cough and wheezing. Negative for chest tightness and shortness of breath. Cardiovascular: Negative for chest pain, palpitations and leg swelling. Objective BP 184/93 Pulse 73 Temp 36.9 ?C (98.4 ?F) Resp 20 Wt 79 kg (174 lb 2.6 oz) LMP 11/23/2008 SpO2 98% BMI 28.98 kg/m? Physical Exam Vitals reviewed. Constitutional: Appearance: Normal appearance. HENT: Right Ear: External ear normal. A middle ear effusion is present. Left Ear: External ear normal. There is impacted cerumen. Eyes: General: Lids are normal. Cardiovascular: Rate and Rhythm: Normal rate and regular rhythm. Heart sounds: Normal heart sounds, S1 normal and S2 normal. Pulmonary: Effort: Pulmonary effort is normal. Breath sounds: No decreased breath sounds, wheezing, rhonchi or rales. Lymphadenopathy: Cervical: No cervical adenopathy. Neurological: Mental Status: She is alert. {ASSESSMENT/PLAN: 1. Impacted cerumen of left ear - ICD9: 380.4, ICD10: H61.22 (primary diagnosis) Irrigated out today 2. Acute non-recurrent maxillary sinusitis - ICD9: 461.0, ICD10: J01.00 - Will begin treatment with Doxycycline - Supportive care with plenty of fluids, rest, and analgesia prn. - Follow up in 3-5 days if symptoms persist or worsen. Ludwin Rodriguez APRN.POWER ENGINEER History and Record Review External record(s) reviewed: prior outpatient record. Findings from review of outpatient records: pcp appointment verses pulmonology Differential Diagnoses - sinusitis is more likely for the following reason(s): suggested by HANDP - asthma excerbation is less likely for the following reason(s): HANDP not suggestive Additional Tests or Interventions The following medication(s) were considered but not ordered: steroids, no acute asthma exacerbation, heart disease and uncontrolled blood pressure Disposition The patient was discharged. OTC Medications were advised: Flonase/Nasacort Patient well is well-appearing nontoxic in no acute respiratory distress. She presents today with acute sinusitis and a cerumen impaction. Symptoms been consistent.. Ear canal was irrigated out today in clinic without complications. Did discuss with her that with 3 weeks of symptoms she is on albuterol discussed that she is ever seen pulmonology or been on a maintenance medication such as Flovent. No concerns for asthma exacerbation or acute pneumonia today. Discussed need to follow-up with primary care versus pulmonology as she is not well-controlled asthma even when sick. She hasn't seen nursery attendant in some time. Blood pressure elevated, she is on lisinopril discussed if she is taking at home or at work and she hasn't been lately. Discussed blood pressure is not well-controlled today and did need to make a follow-up appointment with her primary care provider. Patient verbalized understanding and in agreement with plan. She was discharged home.[facility]02-27-[facility] History of Present illness Narrative* Justice Samuels MD - 01/22/2025 8:40 AM EST Subjective Patient ID: Jolie Schwartz is a 59 y.o. female who presents for Annual Exam. HPI History of allergic reaction to medication. Renew EpiPen. Blood pressure is doing okay, continue the lisinopril and metoprolol for now. Records show that she has coronary artery disease, but is taking a full dose aspirin and cooperative gel. No history of a stent. So with known coronary disease not on a cholesterol medicine. Reinforced the patient that I am concerned she needs to follow-up with cardiology sure that we have the appro priate treatment with her medical conditions. Worried about both antiplatelet medications that she takes Side effects from the antiplatelet medications History of intermittent asthma will refill her inhaler. Labs today We will follow her blood pressure no changes at this time. Office visit 6 months Going to call cardiology to make a follow-up. If she needs a referral she can call us. Review of Systems Constitutional: Negative for fatigue. Eyes: Negative for visual disturbance. Respiratory: Negative for cough, chest tightness and shortness of breath. Cardiovascular: Negative for chest pain and palpitations. Gastrointestinal: Negative for abdominal pain, constipation and diarrhea. Skin: Negative for rash. Neurological: Negative for headaches. Objective BP 140/86 Pulse 80 Ht 1.638 m (5' 4.5) Wt 78.1 kg (172 lb 3.2 oz) SpO2 97% BMI 29.10 kg/m Physical Exam Constitutional: Appearance: Normal appearance. HENT: Head: Normocephalic and atraumatic. Cardiovascular: Rate and Rhythm: Normal rate and regular rhythm. Heart sounds: Normal heart sounds. Pulmonary: Effort: Pulmonary effort is normal. Breath sounds: Normal breath sounds. Skin: General: Skin is warm and dry. Neurological: General: No focal deficit present. Mental Status: She is alert and oriented to person, place, and time. Psychiatric: Mood and Affect: Mood normal. Behavior: Behavior normal. Thought Content: Thought content normal. Judgment: Judgment normal. Assessment/Plan Problem List Items Addressed This Visit None Visit Diagnoses Codes Routine general medical examination at a health care facility - Primary Z00.00 Relevant Medications clopidogrel (Plavix) 75 mg tablet lisinopril 20 mg tablet metoprolol succinate XL (Toprol-XL) 100 mg 24 hr tablet albuterol 90 mcg/actuation inhaler EPINEPHrine 0.3 mg/0.3 mL injection syringe Other Relevant Orders CBC Comprehensive Metabolic Panel Magnesium Lipid Panel Thyroid Stimulating Hormone [facility] Work Phone: [phone] Miscellaneous Notes* Telephone Encounter - Pancho Saucedo MA - 05/14/2023 7:05 PM EDT Patient notified of results, verbalized understanding of instructions given. Pancho Saucedo MA * Telephone Encounter - Jessi Oglesby APRN.CNP - 05/14/2023 6:58 PM EDT Patient's x-ray was negative for any acute findings no pneumothorax noted. Patient should heal in time. Have patient rest ice alternate Tylenol Motrin for a week or so if symptoms are not getting anybetter patient should follow-up with primary care. documented in this encounterThe [facility]06-19-2023 History of Present illness Narrative* Gabi Ravi RT(R) - 05/14/2023 6:00 PM EDT Radiology Service Progress Note PATIENT NAME: Jolie Schwartz DATE OF SERVICE: May 14, 2023 TIME: 6:00 PM PATIENT IDENTITY VERIFICATION COMPLETED USING TWO (2) IDENTIFIERS: Name and Date of confirmedby patient verbally. FALL SCREENING: Has the patient had 2 falls in the last year or 1 fall with injury or currently using an Ambulatory Assistive Device (Walker, Cane, Wheelchair, Crutches, etc.)? No PATIENT GENDER DATA: Female. status: : No status: NO. PATIENT RELEVANT IMPLANT DATA REVIEWED: Not Applicable RADIOLOGY DEPARTMENT: General X-ray: Exam(s) Completed: Chest X-Ray PERIPHERAL IV DATA: Not applicable SIGNED BY: RT Alvaro(R) May 14, 2023 6:00 PM documented in this encounterThe [facility] Of [facility]06-19-2023 History of Present illness Narrative* Jessi Oglesby APRN.POWER ENGINEER - 05/14/2023 5:56 PM EDT Images from the original note were not included. Subjective Came in with complaints of right rib pain. Patient says she was standing on a water activity barrelthat spins around and fell and landed on her ribs. Says is hurt ever since. Patient's not having difficulty breathing but says it is painful to breathe. Patient denies any shortness of breath. Patient also did not take any of her blood pressure medication this morning so blood pressure is elevated.Patient says this is normal for her. Patient denies any symptoms associated with high blood pressure. Patient denies any other symptoms at this time. The history is provided by the patient. No english language learner teacher was used. Review of Systems Constitutional: Negative. Skin: Negative. Objective Physical Exam Constitutional: Appearance: Normal appearance. Pulmonary: Effort: Pulmonary effort is normal. Musculoskeletal: Arms: Comments: Patient is experiencing the pain in the area marked above. Pain is reproducible upon palpation. No bruising or deformity noted. Neurological: Mental Status: She is alert. PAST MEDICAL HISTORY Diagnosis Date Acute myocardial infarction (HCC) RONEL 12/11 Anemia, unspecified Asthma Coronary arteriosclerosis Diastolic heart failure (HCC) Noncompliance with treatment Other anaphylactic reaction 2006 ICU x 3 days, no cause identified, throat was swollen Pulmonary hypertension (HCC) PAST SURGICAL HISTORY Procedure Laterality Date COLONOSCOPY 11/26/2006 for anemia workup, coloscopy was ok HYSTERECTOMY HX still has ovaries and cervix LEFT HEART CATH 12/04/2015 ALLERGIES Environmental Allergies [Other], Medical Tape [Other], Meloxicam, Oranges [Other], and Toradol [Ketorolac] MEDICATIONS lisinopril (ZESTRIL, PRINIVIL) 20 mg tablet Take 1 tablet by mouth once daily. albuterol HFA (PROVENTIL HFA, VENTOLIN HFA) 90 mcg/actuation inhaler Inhale 2 Puffs as instructed every 4 hours as needed (for cough, wheezing, chest tightness or shortness of breath. Use with spacer. ). metoprolol succinate ER (TOPROL XL) 100 mg Tb24 Take 1 tablet by mouth once daily. clopidogrel (PLAVIX) 75 mg tablet Take 1 tablet by mouth once daily. EPINEPHrine (EPIPEN) 0.3 mg/0.3 mL auto-injector Inject 0.3 mL intramuscularly as needed (for allergic reaction.Seek emergent medical care immediately after use.Disp:one 2-packw/deburrer strip). aspirin, enteric coated (ASPIRIN, ENTERIC COATED) 81 mg EC tablet Take 3 tablets by mouth once daily. CALCIUM CARBONATE/VITAMIN D3 (CALCIUM WITH VITAMIN D ORAL) Take 1 tablet by mouth. (Patient not taking: Reported on 05/14/2023) DAILY MULTI-VITAMIN ORAL Take 1 tablet by mouth once daily. (Patient not taking: Reported on 05/14/2023) FAMILY HISTORY Problem Relation Age of Onset Cancer Maternal Grandfather tumor on back Heart Father had valve replaced (congenitally bicuspid) Diabetes Mother Hypertension Brother Hypertension Sister Colon Cancer Paternal Grandmother dx age 60; around age of dx Breast Cancer Maternal Grandmother dx age 60; age 93 Hypertension Mother Asthma Maternal Uncle Asthma Paternal Aunt Allergies Daughter Allergies Maternal Uncle Allergies Paternal Aunt Social History Tobacco Use Smoking status: Never Smokeless tobacco: Never Substance Use Topics Alcohol use: Yes Comment: occasionally Drug use: No ASSESSMENT/PLAN: 1. Rib pain on right side - ICD9: 786.50, ICD10: R07.81 (primary diagnosis) 2. Dyspnea, unspecified type - ICD9: 786.09, ICD10: R06.00 * * * * Physician Interpretation * * * * EXAMINATION: CHEST RADIOGRAPH (2 VIEW FRONTAL & LATERAL) CLINICAL HISTORY: Acute cough MQ: [id number] EXAM DATE/TIME: 05/14/2023 6:07 PM COMPARISON: 10/25/2017 RESULT: Lines, tubes, and devices: None. Lungs and pleura: No consolidation. No lung mass. No pleural effusion. No pneumothorax. Cardiomediastinal silhouette: Normal cardiomediastinal silhouette. Bones and soft tissues: Degenerative changes are present within the thoracic spine. IMPRESSION IMPRESSION: No acute radiographic abnormality. Pediatric Geneticist: ASHLEY Transcribe Date/Time: May 14 2023 6:29P Dictated by : YURIDIA GUADALUPE MD Attempted to call patient left voicemail for return call. No pneumothorax was visible. At this timepatient should rest ice. Patient should follow-up in a week or so if signs or symptoms do not seem to be getting any better. Jessi Oglesby APRN.JOSE documented in this encounterThe [facility]06[facility] History of Present illness Narrative* Roger Valdez MD - 05/25/2022 3:42 PM EDT [facility] PATIENT: Jolie Schwartz DATE / TIME: 05/25/22 3:42 PM POS: Office AGE: 57 y.o. : 1965 RACE: [1] SEX: female PCP: Justice Samuels MD REFERRAL: No ref. provider found TOS: 1. Scalp mass ASSESSMENT: Patient was seen previously and thought to have an infected sebaceous cyst of her scalp. Since then she is convinced she had an insect bite of her left fourth digit for which she was placed on Bactrim DS which improved not only her finger but the indurated area that I thought was a sebaceous cyst seems to have completely resolved. Today I do not feel any retained cyst. We have discussed this and we have canceled his excision today. PLAN: I will reevaluate her in 3 months time SUBJECTIVE: Patient states that she can no longer feel anything at the area of previous discomfort and drainage. She was initially evaluated thought she had a infected sebaceous cyst of her scalp. However she got a bug bite of her left fourth digit that obviously became cellulitic took Bactrim DS for a week and noticed that not only did her finger improved but her scalp improved. She believes shehas good bitten by spiders OBJECTIVE: BP (!) 161/89 Pulse 82 Ht 5' 4 Wt 75.9 kg (167 lb 6.4 oz) SpO2 96% BMI 28.73 kg/m Her scalp is basically returned to normal although this is a difficult exam because she has very long and very thick hair. When we parted and went down to the area I do not feel or see anything suspicious. Laboratory and Additional Data Reviewed: Laboratory 05/25/22 3:42 PM Microbiology 05/25/22 3:42 PM Radiology 05/25/22 3:42 PM Medications 05/25/22 3:42 PM No results found for: WBC, HGB, HCT, MCV, PLT No results found for: GLUCOSE, CALCIUM, NA, K, CL, BUN, CREATININE No orders to display REVIEW OF SYSTEMS Pertinent positives and negatives are listed in HPI, PMSH, SH, ALL above and in Details below. See scanned patient ROS questionnaire for specific details The following systems were reviewed: [x] Const (fevers, chills, wt. loss, fatigue) [x] CV (HTN, CP, GUARDADO, edema, DVT) [x] Resp (SOB, pleurisy, asthma, apnea) [x] GI (N, V, D, C, M, abd pain, appetite) [x] Musc (back pain, joint stiffness, gout) [x] Neuro (seizures, syncope, paralysis) [x] Psych (depression, anxiety) [x] Endo (hot/cold intol, polyuria[DM]) [x] Hem/Lymph (Anemia, LA, bleeding) [x] Allerg/Immun (seasonal, immuniz) [x] Eyes (diplopia, cataracts) [x] ENT/mouth (dysphagia, epistaxis) [x] (dysuria, hematuria) [x] Skin/Breast (moles, rash, lumps, nipple changes) Details: Patient's Medications New Prescriptions No medications on file Previous Medications CLOPIDOGREL (PLAVIX) 75 MG TABLET Take 1 Unspecified by mouth every night at bedtime . GABAPENTIN (NEURONTIN) 100 MG CAPSULE Take by mouth . LISINOPRIL (PRINIVIL,ZESTRIL) 20 MG TABLET Take 20 mg by mouth daily . METOPROLOL SUCCINATE (TOPROL-XL) 100 MG 24 HR TABLET Take 1 Unspecified by mouth every night at bedtime . OMEPRAZOLE (PRILOSEC) 20 MG CAPSULE Take 20 mg by mouth daily . ONDANSETRON (ZOFRAN-ODT) 4 MG DISINTEGRATING TABLET Dissolve 4 Unspecified on top of tongue every 8(eight) hours . Modified Medications No medications on file Discontinued Medications No medications on file documented in this [id number] History of Present illness Narrative* neck better. Surgery wants to remove cyst in scalp. * Anemia - Hb is better to about 10 from 8. not on iron. * Lipase level is normal, thyroid level is normal, other blood tests are normal. * She still says she gets bleeding every month she has not seen the [facility] doc in at least 2 years. Highly recommend she make an appointment to see them soon as possible. Did discuss with her that cancer is on the possible diagnosis list if she still has her cervix. * Also she had anemia and she was worried about an ulcer she does have a visit to see GI in [facility] a couple of weeks * Again has the anemia and takes aspirin and Plavix. She does not have a stent according to her and Idiscussed with her that it is unusual to be on both of these medications without a stent. It has been a couple years also since she seen cardiology. * Also she has known coronary artery disease and not on a high-dose statin medication. Again I discussed with her that this is very unusual. * Both of these things I did do a referral to see cardiology because she needs follow-up. * Lastly and once the above are done, I would recommend removal of the scalp cyst with surgery. [facility] Work Phone: [phone]) 330-743804-19-2022 History of Present illness Narrative* Roger Valdez MD - 03/14/2022 2:29 PM EDT [facility] [address] [facility] [id number] Patient: Jolie Schwartz Age: 56 y.o. Race: [1] Chief Complaint: Chief Complaint Patient presents with Consult Cyst on scalp 1. Scalp mass 2. 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 Coronary artery disease, unspecified vessel or lesion type, unspecified whether angina present, unspecified whether [place] or transplanted heart 4. Anemia, unspecified type 5. Primary hypertension Date: 03/14/22 Physicians: Justice Samuels MD (Family); Justice Samuels* (Referring) HPI: Patient is a 56-year-old white female referred due to the fact that she first noted the suddenappearance of a mass on her posterior scalp February 26, 2022. She has been scheduled today for me to evaluate that. However she gives a much longer history stating [place] by that she means nausea, vomiting, pain and indigestion and a diffuse manner poorly localized in her abdomen. It did not radiate into her back or shoulder. She denies any unexplained unintentional weight loss. She was under the impression she had foodpoisoning. Apparently a CT scan was done without contrast and she was told that it was normal. She states that the emergency room physician was worried she had had ulcers given the fact that they found her to be anemic. She is on long-term Plavix therapy due to the fact that she had a heart attack in November 2015. She states that no stents or bypass was performed. She carries a chronic diagnosis of hypertension as well as asthma. She believes she may have sleep apnea. Apparently since her catheterization she has had a repeat catheterization and stress test which she has been told is normal. After explaining all this to me she is told me she has an appointment to see a GI doctor in thenear future. This brought us back to the scalp lesion which she states was concerning for an abscess therefore Dr. Samuels attempted a needle aspiration on March 02, 2022 resulting in a trip to the emergency room the following day March 03, 2022 at which time she was placed on a 10-day course of antibiotics. The wound opened up and drained pus and a friend of hers took a picture which she showed Kory 2021. 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 YES NO [x] [] Change in bowel habits? [x] [] Diarrhea? [] [x] Constipation? [] [x] Blood in stool? [] [x] Mucus in your stool? [] [x] Decrease in caliber of your stool? [] [x] Heme positive stool [x] [] Have you recently been diagnosed with anemia by your family doctor? Family History with regards to cancer [] [x] Colon or Rectal [x] [] Gastric/Esophageal she had a maternal uncle of esophageal cancer and a paternal grandmother of gastric cancer. [] [x] Pancreatic [] [x] Liver [] [x] Biliary tract [] [x] Ovarian-her mother had uterine cancer [] [x] Breast [] [x] Prostate cancers Mmxcpfvzo82/19/222:29 PM Djfxtljfgy20/19/222:29 PM Past Histories: Allergies: Ketorolac Patient's Medications New Prescriptions No medications on file Previous Medications CLOPIDOGREL (PLAVIX) 75 MG TABLET Take 1 Unspecified by mouth every night at bedtime . GABAPENTIN (NEURONTIN) 100 MG CAPSULE Take by mouth . LISINOPRIL (PRINIVIL,ZESTRIL) 20 MG TABLET Take 20 mg by mouth daily . METOPROLOL SUCCINATE (TOPROL-XL) 100 MG 24 HR TABLET Take 1 Unspecified by mouth every night at bedtime . OMEPRAZOLE (PRILOSEC) 20 MG CAPSULE Take 20 mg by mouth daily . ONDANSETRON (ZOFRAN-ODT) 4 MG DISINTEGRATING TABLET Dissolve 4 Unspecified on top of tongue every 8(eight) hours . Modified Medications No medications on file Discontinued Medications No medications on file Patient Active Problem List Diagnosis Scalp mass jail current use of anticoagulant Coronary artery disease Anemia Primary hypertension Past Medical History: Diagnosis Date Anemia Headache Hypertension Past Surgical History: Procedure Laterality Date CARDIAC CATHETERIZATION 2016 HYSTERECTOMY 2012 Social History Socioeconomic History Marital status: Single Tobacco Use Smoking status: Never Smoker Smokeless tobacco: Never Used Substance and Sexual Activity Alcohol use: Not Currently Drug use: Never REVIEW OF SYSTEMS Pertinent positives and negatives are listed in HPI, PMSH, SH, ALL above and in Details below. See scanned patient ROS questionnaire for specific details The following systems were reviewed: [x] Const (fevers, chills, wt. loss, fatigue) [x] CV (HTN, CP, GUARDADO, edema, DVT) [x] Resp (SOB, pleurisy, asthma, apnea) [x] GI (N, V, D, C, M, abd pain, appetite) [x] Musc (back pain, joint stiffness, gout) [x] Neuro (seizures, syncope, paralysis) [x] Psych (depression, anxiety) [x] Endo (hot/cold intol, polyuria[DM]) [x] Hem/Lymph (Anemia, LA, bleeding) [x] Allerg/Immun (seasonal, immuniz) [x] Eyes (diplopia, cataracts) [x] ENT/mouth (dysphagia, epistaxis) [x] (dysuria, hematuria) [x] Skin/Breast (moles, rash, lumps, nipple changes) Details: Single Data Unavailable Social History Tobacco Use Smoking Status Never Smoker Smokeless Tobacco Never Used Social History Substance and Sexual Activity Alcohol Use Not Currently Social History Substance and Sexual Activity Drug Use Never Family History Problem Relation Age of Onset Uterine cancer Mother Stroke Mother Stroke Father Cancer Maternal Grandmother Cancer Paternal Grandmother Physical Exam: BP (!) 171/96 (BP Location: Left arm) Pulse 81 Ht 5' 4 Wt 74.9 kg (165 lb 3.2 oz) SpO2 96% BMI 28.36 kg/m Body mass index is 28.36 kg/m . HEENT normocephalic atraumatic no scleral icterus pupils equal round reactive extraocular movementsare intact moist mucous membrane good dental occlusion tongue is midline. On her posterior scalp there is an indurated mass with hair that is missing over the top of it. It is not fluctuant. It is more consistent with a pilar cyst and a sebaceous cyst neck is supple, trach is midline, no thyromegaly, JVD, bruits or masses are noted. 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 Patient is on Plavix. She has had abdominal pain change in bowel habit diarrhea and recent diagnosis of anemia which she very thoroughly explained to me. Fortunately she has an appointment with a GI doctor meaning a screw machine setter in the near future. Therefore I will defer all those other symptoms to that physician for the appropriate work-up. I have recommended she consider excision of the mass from her scalp to be done in a procedure room in our medical office building in [place]. I willneed 30 minutes of time. She needs to stop her Plavix for a week prior to the procedure Plan: Schedule 30-minute appointment for her to [place] in our office procedure room under local. 1. Scalp mass 2. 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 Coronary artery disease, unspecified vessel or lesion type, unspecified whether angina present, unspecified whether [place] or transplanted heart 4. Anemia, unspecified type 5. Primary hypertension No orders of the defined types were placed in this encounter. Roger Valdez MD documented in this [id number] History of Present illness Narrative* No trauma to the back of her head, no lesion on the back of her head before Sunday. * An enlarging lesion,? Cyst, the last 4 days. Also feels like she has lymphadenopathy on both sides of her neck. * Large grape sized fluctuant cyst scalp area. Looks like some drainage mostly bloody coming from a small area. * Needle I&D returned only blood no pus. * Lymphadenopathy bilateral anterior neck. * Augmentin twice a day x10 days * Referral to general surgery to help drain the cyst * If things get worse, she needs to go to the ER. * new Rx done for lansoprazole - sent February 24 but Pharm did not get it? [facility] Work Phone: [phone]) 974-197004-01-2022 History of Present illness Narrative* CT in ER was ok. * labs in ER ok except Hb 8.3 ( change per ER from 13). Lipase 191. * sounds like viral AGE was the cause of the symptoms for ER visit. symptoms are better now. * colonoscopy done before but likely < 50 years old. done around the time of hyster for anemia. did recover from anemia. * Known coronary artery disease takes the Plavix and the aspirin, but is not on a cholesterol pill. Irecommend she consider high-dose statin for prevention of another heart attack. She said the last time she saw cardiology was likely prepandemic about 2 years ago virtual. * CBC CMP TSH ferritin iron level in 1 month * Office visit 1 month * Stay on the Prevacid 30 mg once a day * Keep the office visit with GI in [place] for early March. * Also she said she has been having occasional vaginal discharge/bleeding monthly. She had a hysterectomy, but she said they left the cervix and the ovaries. Sounds like it has been about 2 years sinceshe seen her [facility] doctor, and I recommend she follow-up with them as soon as possible in the next couple weeks because of the bleeding. * I do not think she is bleeding enough to cause the anemia, so we still need to do work-up for GI. [facility] Work Phone: [phone]) 907-989612-21-2015 History of Past illness Narrative* Problem Noted Date Resolved Date Tobacco abuse disorder 11/15/2015 5 Other anaphylactic reaction 12/05/200803/2016 documented as of this encounter (statuses as of 03/18/2022) [facility] History of Past illness Narrative* Problem Noted Date Resolved Date Tobacco abuse disorder 11/15/2015 5 Other anaphylactic reaction 12/05/200803/2016 documented as of this encounter (statuses as of 05/15/2023) [facility] History of Past illness Narrative* Problem Noted Date Resolved Date Tobacco abuse disorder 11/15/2015 5 Other anaphylactic reaction 12/05/200803/2016 documented as of this encounter (statuses as of 05/15/2023) [facility] noteNo assessment information availableWSelect [facility] Work Phone: Evaluation note* Diagnosis Scalp cyst- Primary Sebaceous cyst [facility]* Diagnosis Scalp mass- Primary 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 Coronary artery disease, unspecified vessel or lesion type, unspecified whether angina present, unspecified whether [place] or transplanted heart Anemia, unspecified type Primary hypertension Unspecified essential hypertension documented in this encounter [facility] note* Diagnosis Anemia, unspecified type- Primary Periumbilical abdominal pain Abdominal pain, periumbilic Fatigue, unspecified type documented in this encounter [facility] note* Diagnosis Scalp mass- Primary documented in this encounter [facility] note* Diagnosis Rib pain on right side- Primary Chest pain, unspecified Dyspnea, unspecified type documented in this encounter [facility] note* Diagnosis BENIGN HYPERTENSION- Primary Essential hypertension, benign Hypothyroidism, unspecified hypothyroidism type Encounter for screening mammogram for malignant neoplasm of breast Other screening mammogram Anemia, unspecified type Routine health maintenance Routine general medical examination at a health care facility Essential hypertension [I10] Unspecified essential hypertension Cardiomegaly Arthralgia of both knees Hyperlipidemia, unspecified hyperlipidemia Mild intermittent asthma without complication Unspecified asthma 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 Mixed hyperlipidemia BENIGN HYPERTENSION- Primary Essential hypertension, benign 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) Coronary atherosclerosis of artery bypass graft Coronary artery disease involving [place] coronary artery of [place] heart without angina pectoris LVH (left ventricular hypertrophy) Cardiomegaly Acute cough documented in this encounter [facility] note* Diagnosis Routine general medical examination at a health care facility- Primary documented in this encounter [facility] Work Phone: Evaluation note* Diagnosis BENIGN HYPERTENSION- Primary Essential hypertension, benign Hypothyroidism, unspecified hypothyroidism type Encounter for screening mammogram for malignant neoplasm of breast Other screening mammogram Anemia, unspecified type Routine health maintenance Routine general medical examination at a health care facility Essential hypertension [I10] Unspecified essential hypertension Cardiomegaly Arthralgia of both knees Hyperlipidemia, unspecified hyperlipidemia Mild intermittent asthma without complication (HCC) Unspecified asthma 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 Mixed hyperlipidemia BENIGN HYPERTENSION- Primary Essential hypertension, benign 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) Coronary atherosclerosis of artery bypass graft Coronary artery disease involving [place] coronary artery of [place] heart without angina pectoris LVH (left ventricular hypertrophy) Cardiomegaly Impacted cerumen of left ear- Primary Impacted cerumen Acute non-recurrent maxillary sinusitis documented [facility] this encounter [facility]* Diagnosis BENIGN HYPERTENSION- Primary Essential hypertension, benign Hypothyroidism, unspecified hypothyroidism type Encounter for screening mammogram for malignant neoplasm of breast Other screening mammogram Anemia, unspecified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
== END | disposition home or self-care (01) ==
LOC: LAB 13:24
PROVIDERS: PCP Family Medicine; Referring Provider Internal Medicine Pulmonary Disease; Visit Provider Internal Medicine Pulmonary Disease
DX: J45.30 Mild persistent asthma, uncomplicated (principal)
CPT/HCPCS: 36415; 85025; 86003

== ENCOUNTER → 2025-06-30 | Outpatient (CLI) | payer BC, SELFPAY ==
--- NOTE | 2025-06-30 13:24 | ECHOD_ITS ---
Reason For Study : PRE OP Procedure This was a 2D Doppler, Color Flow transthoracic echocardiogram. Myocardial strain analysis was performed in this exam to aid in the assessment of cardiac function. Exam performed in department. Left Ventricle Normal LV size. The global longitudinal strain = -19.6 % (normal). The left ventricular ejection fraction is 65 %. Stage 1 diastolic dysfunction. No regional wall motion abnormalities noted. Right Ventricle Normal RV size. Normal systolic function. Mitral Valve There is mild to moderate mitral annular calcification. Mild (1+) mitral valve insufficiency. Tricuspid Valve Normal tricuspid valve. Mild tricuspid valve insufficiency. Aortic Valve Trisinus/trileaflet aortic valve. Mild focal aortic valve calcification. Peak aortic valve gradient 42 mmHg. Mean aortic valve gradient 25 mmHg. Pulmonic Valve Normal pulmonic valve. Great Vessels Normal aortic root. The pulmonary artery is normal size. Inferior vena cava collapse with respiration. Pericardium/Pleural No pericardial effusion. MMode/2D Measurements & Calculations LVIDd: 3.9 cm IVSd: 1.1 cm LVOT diam: 1.9 cm LVIDs: 2.1 cm LVPWd: 0.98 cm LVOT area: 2.8 cm2 RVDd: 3.5 cm FS: 46.6 % asc Aorta Diam: 3.2 cm LAV(MOD-bp): 40.0 ml LVAd ap4: 23.8 cm2 LAV(MOD-bp) Indexed: 21.9 ml/m2 LVLd ap4: 7.6 cm LAV(MOD-sp2): 41.4 ml EDV(MOD-sp4): 63.8 ml LAV(MOD-sp4): 37.9 ml EDV(sp4-el): 63.5 ml LVAs ap4: 12.4 cm2 LVLs ap4: 6.3 cm ESV(MOD-sp4): 21.4 ml ESV(sp4-el): 20.8 ml EF(MOD-sp4): 66.4 % EF(sp4-el): 67.2 % SV(MOD-sp4): 42.3 ml SV(MOD-sp2): 48.6 ml LVAd ap2: 26.0 cm2 LVLd ap2: 8.0 cm SI(MOD-sp4): 23.3 ml/m2 SI(MOD-sp2): 26.7 ml/m2 EDV(MOD-sp2): 69.3 ml EDV(sp2-el): 71.6 ml LVAs ap2: 12.4 cm2 LVLs ap2: 6.5 cm ESV(MOD-sp2): 20.6 ml ESV(sp2-el): 20.4 ml EF(MOD-sp2): 70.2 % SV(sp4-el): 42.6 ml Ao sinus diam: 2.[address] Junction: 2.5 cm LA A4 area: 15.6 cm2 LA dimension(2D): 3.6 cm RA A4 area: 7.6 cm2 TAPSE: 2.1 cm Time Measurements MV dec time: 0.26 sec Doppler Measurements & Calculations MV E max sandor: 119.9 cm/sec Lat Peak E' Sandor: 8.2 cm/sec Med Peak E' Sandor: 9.5 cm/sec MV A max sandor: 128.7 cm/sec E/E' lat: 14.5 E/E' med: 12.6 MV E/A: 0.93 Ao V2 max: 323.5 cm/sec LV V1 max: 126.1 cm/sec MV dec slope: 461.4 cm/sec2 Ao max P.0 mmHg LV V1 max P.4 mmHg Ao V2 mean: 238.3 cm/sec LV V1 mean P.3 mmHg Ao mean P.6 mmHg LV V1 mean: 100.7 cm/sec Ao V2 VTI: 64.4 cm LV V1 VTI: 26.7 cm AV (velocity ratio): 0.42 KARL(I,D): 1.2 cm2 KARL(V,D): 1.1 cm2 SV(LVOT): 75.3 ml PA V2 max: 121.7 cm/sec TR max sandor: 224.6 cm/sec TR max P.2 mmHg ECHO/Echo Complete Interpretation Summary Normal LV size. The global longitudinal strain = -19.6 % (normal). The left ventricular ejection fraction is 65 %. There is mild to moderate mitral annular calcification. Mild (1+) mitral valve insufficiency. Stage 1 diastolic dysfunction. Mild focal aortic valve calcification. Mean aortic valve gradient 25 mmHg. Ordering Physician: Zane Meyers Referring Physician: Zane Meyers MD Performed By: Anupama Rodriguez RDCS
== END | disposition home or self-care (01) ==
LOC: CVS 13:16
PROVIDERS: PCP Family Medicine; Referring Provider Internal Medicine Cardiovascular Disease; Visit Provider Internal Medicine Cardiovascular Disease
DX: Z01.810 Encounter for preprocedural cardiovascular examination (principal); I50.32 Chronic diastolic (congestive) heart failure; R07.9 Chest pain, unspecified; I25.119 Atherosclerotic heart disease of native coronary artery with unspecified angina pectoris
CPT/HCPCS: 93306